=== PATIENT | female | born 1985 | race Caucasian/White ===

== ENCOUNTER 2017-04-18 07:23 | Emergency (ER) | payer BC ==
[2017-04-18 08:07] LABS: Hematocrit 43 % (35-47); Mean Corpuscular HGB Conc 33 g/dl (31-36); Mean Corpuscular Hemoglobin 30 pg (27-31); Mean Corpuscular Volume 92 fL (80-97); Mean Platelet Volume 8 um3 (7.4-10.4); Red Blood Count 4.62 10^6/ul (4.0-5.4); Red Cell Distribution Width 13 % (10.5-15); White Blood Count 12.4 10^3/ul (3.5-10.8)
--- NOTE | 2017-04-18 08:10 | RAD ---
INDICATION: Chest pain. COMPARISON: November 01, 2015 TECHNIQUE: Dual energy PA and routine lateral views of the chest were obtained. REPORT: Bilateral nipple shadows noted. No pulmonary infiltrate, focal pulmonary lesion, pleural effusion, pneumothorax. The heart, pulmonary vasculature, and mediastinal contours are unremarkable. Unremarkable soft tissue contours and osseous structures. IMPRESSION: No evidence for acute intrathoracic disease.,
[2017-04-18 08:15] LABS: ALT 17 U/L (7-52); AST 16 U/L (13-39); Albumin 4.4 g/dL (3.2-5.2); Alkaline Phosphatase 44 U/L (34-104); Anion Gap 7 mmol/L (2-11); BUN/Creatinine Ratio 17.3 (8-20); Blood Urea Nitrogen 13 mg/dL (6-24); CO2 Carbon Dioxide 24 mmol/L (22-32); Calcium 9.8 mg/dL (8.6-10.3); Chloride 106 mmol/L (101-111); Creatine Kinase 52 U/L (10-223); EGFR African American 117.5 (>60); EGFR Non-African American 91.4 (>60); Globulin 2.7 g/dL (2-4); Glucose 98 mg/dL (70-100); Potassium 3.8 mmol/L (3.5-5.0); Sodium 137 mmol/L (133-145); Total Protein 7.1 g/dL (6.4-8.9)
[2017-04-18 08:46] LABS: T4 6.81 mcg/mL (6.09-12.23)
[2017-04-18 08:50] LABS: TSH (Thyroid Stimulating Horm) 0.68 mcIU/mL (0.34-5.60)
[2017-04-18 09:10] VITALS: BP 121/88
--- NOTE | 2017-04-19 08:18 | ED ---
Stanley Villasenor Angela, scribed for Nba Rai MD on 04/18/17 at 0744 . Psychiatric Complaint - HPI Summary HPI Summary: This pt is a 31 y/o female presenting to [facility] c/o anxiety for a few days and chest tightness. Pt reports that yesterday she went to [place] ER for the same complaint, had labs drawn, had a chest XR and was given IV Ativan with relief. Pt is currently on Celexa daily and PRN Xanax, Oxycodone, and Flexeril. Yesterday, pt notes she had a migraine that has resolved today. She states last night she took 2 Xanax, oxycodone, and Flexeril and was able to sleep but awoke this morning with anxiety. Pt reports she takes pain medication for chronic hip pain. Today, pt felt nauseous and took Xanax at 0530 with mild relief. PMHx includes anxiety, hip pain, migraines. - History Of Current Complaint Chief Complaint: EDChestPainROMI Time Seen by Provider: 04/18/17 07:34 Hx Obtained From: Patient Hx Last Menstrual Period: 03/01/16 Onset/Duration: Lasting Days, Still Present Timing: Days Character: Anxious Aggravating Factor(s): Nothing Alleviating Factor(s): Other - Ativan, Xanax Associated Signs And Symptoms: Positive: Sleep Disturbance Has Suicidal: Denies: Thoughts, With A Plan Has Homicidal: Denies: Thoughts, With A Plan - Allergies/Home Medications Allergies/Adverse Reactions: Allergies Allergy/AdvReac Type Severity Reaction Status Date / Time Nickel Allergy Severe Rash Verified 04/18/17 07:31 PMH/Surg Hx/FS Hx/Imm Hx Endocrine/Hematology History: Denies: Hx Diabetes, Hx Thyroid Disease Cardiovascular History: Denies: Hx Hypertension, Hx Pacemaker/ICD Respiratory History: Denies: Hx Asthma, Hx Chronic Obstructive Pulmonary Disease (COPD) GI History: Denies: Hx Ulcer History: Denies: Hx Dialysis, Hx Renal Disease Musculoskeletal History: Reports: Other Musculoskeletal History - chronic hip pain Sensory History: Denies: Hx Hearing Aid Psychiatric History: Reports: Hx Anxiety, Hx Depression, Hx Panic Disorder - LITTLE ANXIETY Infectious Disease History: No Infectious Disease History: Denies: Hx Clostridium Difficile, Hx Hepatitis, Hx Human Immunodeficiency Virus (HIV), Hx of Known/Suspected MRSA, Hx Shingles, Hx Tuberculosis, Hx Known/ Suspected VRE, Hx Known/Suspected VRSA, History Other Infectious Disease, Traveled Outside the [place] in Last 30 Days - Family History Known Family History: Negative: Cardiac Disease, Hypertension - Social History Alcohol Use: Occasionally Substance Use Type: Reports: Marijuana Substance Use Comment - Amount & Last Used: OCCASIONALLY Smoking Status (MU): Former Smoker Type: Cigarettes Amount Used/How Often: september 15, 2014 Have You Smoked in the Last Year: Yes Review of Systems Negative: Fever, Chills Eyes: Negative ENT: Negative Cardiovascular: Other - chest tightness Positive: Nausea Genitourinary: Negative Musculoskeletal: Negative Positive: Headache - migraines, yesterday, resolved today Positive: Anxious All Other Systems Reviewed And Are Negative: Yes Physical Exam - Summary Physical Exam Summary: VITAL SIGNS: Reviewed. GENERAL: Patient is a well-developed and nourished female who is lying comfortable in the stretcher. Patient is not in any acute respiratory distress. HEAD AND FACE: No signs of trauma. No ecchymosis, hematomas or skull depressions. No sinus tenderness. EYES: PERRLA, EOMI x 2, No injected conjunctiva, no nystagmus. EARS: Hearing grossly intact. Ear canals and tympanic membranes are within normal limits. MOUTH: Oropharynx within normal limits. NECK: Supple, trachea is midline, no adenopathy, no JVD, no carotid bruit, no c- spine tenderness, neck with full ROM. CHEST: Symmetric, no tenderness at palpation LUNGS: Clear to auscultation bilaterally. No wheezing or crackles. CVS: Regular rate and rhythm, S1 and S2 present, no murmurs or gallops appreciated. ABDOMEN: Soft, non-tender. No signs of distention. No rebound no guarding, and no masses palpated. Bowel sounds are normal. EXTREMITIES: FROM in all major joints, no edema, no cyanosis or clubbing. NEURO: Alert and oriented x 3. No acute neurological deficits. Speech is normal and follows commands. SKIN: Dry and warm. Triage Information Reviewed: Yes Vital Signs On Initial Exam: Initial Vitals Temp Pulse Resp BP Pulse Ox 97.4 F 97 16 121/89 100 04/18/17 07:24 04/18/17 07:24 04/18/17 07:24 04/18/17 07:24 04/18/17 07:24 Vital Signs Reviewed: Yes Diagnostics - Vital Signs Vital Signs Temp Pulse Resp BP Pulse Ox 04/18/17 07:36 100 04/18/17 07:24 97.4 F 97 16 121/89 100 - Laboratory Lab Results: Lab Results 04/18/17 04/18/17 04/18/17 Range/Units 07:41 07:41 07:41 WBC 12.4 H (3.5-10.8) 10^3/ul RBC 4.62 (4.0-5.4) 10^6/ul Hgb 14.0 (12.0-16.0) g/dl Hct 43 (35-47) % MCV 92 (80-97) fL MCH 30 (27-31) pg MCHC 33 (31-36) g/dl RDW 13 (10.5-15) % Plt Count 325 (150-450) 10^3/ul MPV 8 (7.4-10.4) um3 Neut % (Auto) 67.9 (38-83) % Lymph % (Auto) 24.3 L (25-47) % Logan % (Auto) 5.4 (1-9) % Eos % (Auto) 1.6 (0-6) % Baso % (Auto) 0.8 (0-2) % Absolute Neuts (auto) 8.4 H (1.5-7.7) 10^3/ul Absolute Lymphs (auto) 3.0 (1.0-4.8) 10^3/ul Absolute Monos (auto) 0.7 (0-0.8) 10^3/ul Absolute Eos (auto) 0.2 (0-0.6) 10^3/ul Absolute Basos (auto) 0.1 (0-0.2) 10^3/ul Absolute Nucleated RBC 0 10^3/ul Nucleated RBC % 0 D-Dimer, Quantitative < 200 (Less Than 230) ng/mL Sodium 137 (133-145) mmol/L Potassium 3.8 (3.5-5.0) mmol/L Chloride 106 (101-111) mmol/L Carbon Dioxide 24 (22-32) mmol/L Anion Gap 7 (2-11) mmol/L BUN 13 (6-24) mg/dL Creatinine 0.75 (0.51-0.95) mg/dL Est GFR ( Amer) 117.5 (>60) Est GFR (Non-Af Amer) 91.4 (>60) BUN/Creatinine Ratio 17.3 (8-20) Glucose 98 (70-100) mg/dL Calcium 9.8 (8.6-10.3) mg/dL Total Bilirubin 0.60 (0.2-1.0) mg/dL AST 16 (13-39) U/L ALT 17 (7-52) U/L Alkaline Phosphatase 44 (34-104) U/L Total Creatine Kinase 52 (10-223) U/L CK-MB (CK-2) 1.3 (0.6-6.3) ng/mL Troponin I 0.00 (<0.04) ng/mL Total Protein 7.1 (6.4-8.9) g/dL Albumin 4.4 (3.2-5.2) g/dL Globulin 2.7 (2-4) g/dL Albumin/Globulin Ratio 1.6 (1-3) TSH 0.68 (0.34-5.60) mcIU/mL Thyroxine (T4) 6.81 (6.09-12.23) mcg/mL Beta HCG, Quant < 0.60 mIU/mL Result Diagrams: 04/18/17 07:41 04/18/17 07:41 Lab Statement: Any lab studies that have been ordered have been reviewed, and results considered in the medical decision making process. - Radiology Chest XR Xray Interpretation: No Acute Changes - IMPRESSION: No evidence for acute intrathoracic disease. ED physician has reviewed this radiology report and agrees. Radiology Interpretation Completed By: Radiologist - EKG 0800 Cardiac Rate: NL EKG Rhythm: Sinus Rhythm - at 76 bpm EKG Interpretation: No ST elevation. Normal axis. Re-Evaluation - Re-Evaluation First Eval Re-Evaluation Time: 09:07 Comment: I reviewed the XR and lab results with the pt. Course/Dx - Course Assessment/Plan: This pt is a 31 y/o female presenting to [facility] c/o anxiety for a few days and chest tightness. Pt reports that yesterday she went to [place] ER for the same complaint, had labs drawn, had a chest XR and was given IV Ativan with relief. Pt is currently on Celexa daily and PRN Xanax, Oxycodone, and Flexeril. Yesterday, pt notes she had a migraine that has resolved today. She states last night she took 2 Xanax, oxycodone, and Flexeril and was able to sleep but awoke this morning with anxiety. Pt reports she takes pain medication for chronic hip pain. Today, pt felt nauseous and took Xanax at 0530 with mild relief. PMHx includes anxiety, hip pain, migraines. Test results without any significant abnormalities except for WBC of 12.4. D-dimer is less than 200, therefore I have no suspicion for a PE. Troponin is 0.00. Chest XR shows no evidence for acute intrathoracic disease. EKG shows NSR at [address] elevations. It seems the pts symptoms are secondary to anxiety. The pt was given a prescription for Atarax and follow up from her PCP. Pt is hemodynamically stable, alert and oriented x3. - Differential Dx/Clinical Impression Differential Diagnosis/HQI/PQRI: Positive: Anxiety, Depression, Other - Atypical CP, angitan, PE Provider Diagnosis: Atypical chest pain, Anxiety Discharge - Discharge Plan Condition: Stable Disposition: HOME Prescriptions: hydrOXYzine HCL TAB* [Atarax 25 MG TAB*] 25 mg PO TID PRN #30 tab PRN Reason: Anxiety Patient Education Materials: Chest Pain (ED), Anxiety (ED) Forms: *Work Release Referrals: Marcelle Sol MD [Primary Care Provider] - Additional Instructions: Please follow up with your primary care provider. RETURN TO THE ED FOR ANY WORSENING OR NEW SYMPTOMS. The documentation as recorded by the Stanley packer Angela accurately reflects the service I personally performed and the decisions made by me, Nba Rai MD.
== END 2017-04-18 09:21 | disposition home or self-care (01) ==
LOC: ED 07:23
DX: R07.89 Other chest pain (principal); F41.9 Anxiety disorder, unspecified; R51 Headache; G47.9 Sleep disorder, unspecified; R11.0 Nausea; Z87.891 Personal history of nicotine dependence
CPT/HCPCS: 36415; 71020; 80053; 82550; 82553; 84436; 84443; 84484; 84702; 85025; 85379; 93005; 99282

== ENCOUNTER 2017-06-21 08:08 | Emergency (ER) | payer BC ==
[2017-06-21] MEDS ORDERED: Albuterol HFA INHALER* 8 gm MDI INH ONE (08:27)
[2017-06-21 09:37] VITALS: BP 116/76
--- NOTE | 2017-06-23 08:18 | ED ---
Radha Villasenor Thomas, scribed for Nba Rai MD on 06/21/17 at 0825 . Complex/Multi-Sys Presentation - HPI Summary HPI Summary: The patient is a 31 year old female presenting to the emergency department complaining of headache, postnasal drip, and ear congestion for the last two days. The patient additionally complains of chest tightness. She has a history of asthma. The patient denies fevers and chills. - History Of Current Complaint Chief Complaint: EDGeneral Time Seen by Provider: 06/21/17 08:16 Hx Obtained From: Patient Onset/Duration: Lasting Days - 2, Still Present Timing: Constant Severity Currently: Moderate Severity Initially: Moderate Location: Pain At: - head Associated Signs And Symptoms: Positive: Other - Headache, postnasal drip, ear congestion, chest tightness; NEGATIVE: fever, chills - Allergies/Home Medications Allergies/Adverse Reactions: Allergies Allergy/AdvReac Type Severity Reaction Status Date / Time nickel Allergy Severe Rash Verified 06/21/17 09:19 PMH/Surg Hx/FS Hx/Imm Hx Endocrine/Hematology History: Denies: Hx Diabetes, Hx Thyroid Disease Cardiovascular History: Denies: Hx Hypertension, Hx Pacemaker/ICD Respiratory History: Denies: Hx Asthma, Hx Chronic Obstructive Pulmonary Disease (COPD) GI History: Denies: Hx Ulcer History: Denies: Hx Dialysis, Hx Renal Disease Musculoskeletal History: Reports: Other Musculoskeletal History - chronic hip pain Sensory History: Denies: Hx Hearing Aid Psychiatric History: Reports: Hx Anxiety, Hx Depression, Hx Panic Disorder - LITTLE ANXIETY - Surgical History Surgery Procedure, Year, and Place: None Infectious Disease History: No Infectious Disease History: Denies: Hx Clostridium Difficile, Hx Hepatitis, Hx Human Immunodeficiency Virus (HIV), Hx of Known/Suspected MRSA, Hx Shingles, Hx Tuberculosis, Hx Known/ Suspected VRE, Hx Known/Suspected VRSA, History Other Infectious Disease, Traveled Outside the [place] in Last 30 Days - Family History Known Family History: Positive: Cardiac Disease - mother in 40s due to cardiac causes Negative: Hypertension - Social History Occupation: Employed Full-time Alcohol Use: Occasionally Substance Use Type: Reports: Marijuana Substance Use Comment - Amount & Last Used: OCCASIONALLY Smoking Status (MU): Former Smoker Type: Cigarettes Amount Used/How Often: september 15, 2014 Have You Smoked in the Last Year: Yes Review of Systems Negative: Fever, Chills Positive: Other - Ear congestion, postnasal drip Positive: Other - Chest tightness All Other Systems Reviewed And Are Negative: Yes Physical Exam - Summary Physical Exam Summary: VITAL SIGNS: Reviewed. GENERAL: Patient is a well-developed and nourished female who is lying comfortable in the stretcher. Patient is not in any acute respiratory distress. HEAD AND FACE: No signs of trauma. No ecchymosis, hematomas or skull depressions. There is sinus tenderness to the ethmoid and maxillary sinus. EYES: PERRLA, EOMI x 2, No injected conjunctiva, no nystagmus. EARS: Hearing grossly intact. Ear canals and tympanic membranes are within normal limits. MOUTH: Oropharynx within normal limits. There is pharyngeal erythema. NECK: Supple, trachea is midline, no adenopathy, no JVD, no carotid bruit, no c- spine tenderness, neck with full ROM. CHEST: Symmetric, no tenderness at palpation LUNGS: Clear to auscultation bilaterally. No wheezing or crackles. CVS: Regular rate and rhythm, S1 and S2 present, no murmurs or gallops appreciated. ABDOMEN: Soft, non-tender. No signs of distention. No rebound no guarding, and no masses palpated. Bowel sounds are normal. EXTREMITIES: FROM in all major joints, no edema, no cyanosis or clubbing. NEURO: Alert and oriented x 3. No acute neurological deficits. Speech is normal and follows commands. SKIN: Dry and warm Triage Information Reviewed: Yes Vital Signs On Initial Exam: Initial Vitals Temp Pulse Resp BP Pulse Ox 98.6 F 106 17 118/76 100 06/21/17 08:12 06/21/17 08:12 06/21/17 08:12 06/21/17 08:12 06/21/17 08:12 Vital Signs Reviewed: Yes Diagnostics - Vital Signs Vital Signs Temp Pulse Resp BP Pulse Ox 06/21/17 08:12 98.6 F 106 17 118/76 100 - Laboratory Lab Results: Lab Results 06/21/17 06/21/17 Range/Units 08:52 09:02 Influenza A (Rapid) Negative (Negative) Influenza B (Rapid) Negative (Negative) Group A Strep Rapid Negative (Negative) Lab Statement: Any lab studies that have been ordered have been reviewed, and results considered in the medical decision making process. Complex Multi-Symp Course/Dx Assessment/Plan: The patient is a 31 year old female presenting to the emergency department complaining of headache, postnasal drip, and ear congestion for the last two days. Influenza A and B are negative. Rapid strep is negative. I believe the patient has acute sinusitis. Therefore, I will prescribe the patient amoxicillin. The patient will follow up with primary care. - Diagnoses Differential Diagnoses/HQI/PQRI: Other - Flu, sinusitis, pharyngitis Provider Diagnoses: URI (upper respiratory infection), Sinusitis Discharge - Discharge Plan Condition: Stable Disposition: HOME Prescriptions: Amoxicillin PO (*) [Amoxicillin 875 MG (*)] 875 mg PO BID #20 tab Patient Education Materials: Sinusitis (ED), Upper Respiratory Infection (ED) Forms: *Work Release Referrals: Marcelle Sol MD [Primary Care Provider] - 3 Days Additional Instructions: Follow up with your primary care provider in three days. Return to the emergency department for any new or worsening symptoms. The documentation as recorded by the Radha packer Thomas accurately reflects the service I personally performed and the decisions made by , Nba Rai MD.
== END 2017-06-21 09:35 | disposition home or self-care (01) ==
LOC: ED 08:08
DX: J06.9 Acute upper respiratory infection, unspecified (principal); R51 Headache; R09.82 Postnasal drip; H83.8X9 Other specified diseases of inner ear, unspecified ear; R07.89 Other chest pain; J32.9 Chronic sinusitis, unspecified; Z87.891 Personal history of nicotine dependence
CPT/HCPCS: 87502; 87651; 99282; A9270-GY

== ENCOUNTER 2017-07-10 08:56 | Emergency (ER) | payer BC ==
[2017-07-10] MEDS ORDERED: Ondansetron INJ* 2 MG/ML VIAL IV ONE (10:27)
[2017-07-10] MEDS ORDERED: Morphine INJ* 4 MG/ML 1 ML SYRINGE (NEW SYRINGE VERSION) IV ONE ×2 (10:27→15:58)
[2017-07-10] MEDS ORDERED: NS 0.9% 1000 ML* 1,000 ML IV ONE (10:32)
--- NOTE | 2017-07-10 10:44 | ED ---
Complex/Multi-Sys Presentation - HPI Summary HPI Summary: Patient presents with abrupt onset left lower quadrant pain this morning - now radiating around her side. She reports this as a sharp pain, feels like she was "shot in the stomach". Her first thought was possible ruptured ovarian cyst as she's had one on the right in the past. Was told it was not large enough to require surgical intervention at that time. She's not had any issues since. Had a nexplanon in place over the past year or so. She's not really had a period since however recently started spotting. Otherwise denies dysuria, urinary frequency, urinary urgency, vaginal discharge, vaginal irritation, fevers, chills, chest pain. History of constipation however this was when she was taking iron - reports she's no longer taking iron and bowel movements are normal since. She is with full term uncomplicated , vaginal delivery. No history of abdominal surgeries. She also reports having chronic sinus issues with neck soreness - believe she's been draining into her cervical lymph nodes. New symptoms include upper lung "lobe" pain past 2 days with perceived shortness of breath. She reports pain is worse with deep breaths. Denies cough, hemoptysis, fever, lower extremity swelling or trauma in general. She does suffer with restless leg syndrome which is unchanged as of late. History of smoking but quit 4 years ago. No known history of cancer. - History Of Current Complaint Chief Complaint: EDFlankPain Time Seen by Provider: 07/10/17 09:48 Hx Obtained From: Patient - Allergies/Home Medications Allergies/Adverse Reactions: Allergies Allergy/AdvReac Type Severity Reaction Status Date / Time nickel Allergy Severe Rash Verified 06/21/17 09:19 Home Medications: Home Medications Albuterol HFA INHALER* [Ventolin HFA Inhaler*] 2 puff INH Q4H PRN 07/10/17 [ History Confirmed 07/10/17] Cyclobenzaprine TAB* [Flexeril TAB*] 10 mg PO TID PRN 07/10/17 [History Confirmed 07/10/17] DULoxetine CAP* [Cymbalta CAP*] 30 mg PO BEDTIME 07/10/17 [History Confirmed 07/10/17] DULoxetine CAP* [Cymbalta CAP*] 60 mg PO BEDTIME 07/10/17 [History Confirmed 07/10/17] Gabapentin CAP(*) [Neurontin 300 CAP(*)] 900 mg PO BEDTIME 07/10/17 [History Confirmed 07/10/17] Hydrocodone/Acetaminophen [Mershon 7.5-325 Tablet] 1 tab PO BEDTIME PRN 07/10/17 [ History Confirmed 07/10/17] Rizatriptan ODT (NF) [Maxalt-BIOLOGY TEACHER (NF)] 10 mg PO DAILY PRN 07/10/17 [History Confirmed 07/10/17] Zonisamide (NF) [Zonegran (NF)] 100 mg PO BEDTIME 07/10/17 [History Confirmed ] PMH/Surg Hx/FS Hx/Imm Hx Previously Healthy: No - sinusitis, insomnia Endocrine/Hematology History: Reports: Hx Anemia - took Fe in past -not currently Denies: Hx Anticoagulant Therapy, Hx Blood Disorders, Hx Diabetes, Hx Thyroid Disease, Hx Unexplained Bleeding, Hx Coagulopothy Cardiovascular History: Denies: Hx Aneurysm, Hx Congenital Heart Disease, Hx Hypertension, Hx Myocardial Infarction, Hx Pacemaker/ICD, Hx Valvular Heart Disease Respiratory History: Denies: Hx Asthma, Hx Chronic Obstructive Pulmonary Disease (COPD), Hx Pneumonia, Hx Pulmonary Embolism, Hx Sleep Apnea GI History: Denies: Hx Gall Bladder Disease, Hx Gastroesophageal Reflux Disease, Hx Gastrointestinal Bleed, Hx Irritable Bowel, Hx Obstructive Bowel, Hx Ulcer History: Denies: Hx Dialysis, Hx Kidney Infection, Hx Kidney Stones, Hx Renal Disease Musculoskeletal History: Reports: Other Musculoskeletal History - chronic hip pain - takes flexeril Sensory History: Reports: Hx Contacts or Glasses Denies: Hx Hearing Aid Opthamlomology History: Reports: Hx Contacts or Glasses Neurological History: Reports: Hx Migraine - titrating up on Zonisamide, Other Neuro Impairments/Disorders - RLS - takes gabapentin Psychiatric History: Reports: Hx Anxiety, Hx Depression, Hx Panic Disorder - Surgical History Surgery Procedure, Year, and Place: None Infectious Disease History: No Infectious Disease History: Denies: Hx Clostridium Difficile, Hx Hepatitis, Hx Human Immunodeficiency Virus (HIV), Hx of Known/Suspected MRSA, Hx Shingles, Hx Tuberculosis, Hx Known/ Suspected VRE, Hx Known/Suspected VRSA, History Other Infectious Disease, Traveled Outside the [place] in Last 30 Days - Family History Known Family History: Positive: Cardiac Disease - mother in 40's due to cardiac causes Negative: Hypertension - Social History Occupation: Employed Full-time Alcohol Use: Weekly - 2 x week - wine Substance Use Type: Reports: Marijuana Substance Use Comment - Amount & Last Used: OCCASIONALLY for insomnia Hx Tobacco Use: Yes - quit 4 years ago Smoking Status (MU): Former Smoker Type: Cigarettes Amount Used/How Often: september 15, 2014 Have You Smoked in the Last Year: Yes Review of Systems Constitutional: Negative Negative: Fever, Chills, Fatigue Eyes: Negative Positive: Ear Ache Negative: Chest Pain Positive: Shortness Of Breath. Negative: Cough Positive: Abdominal Pain. Negative: Vomiting, Diarrhea, Nausea Genitourinary: Negative Positive: see HPI Musculoskeletal: Negative Skin: Negative Negative: Headache Positive: Anxious All Other Systems Reviewed And Are Negative: Yes Physical Exam Triage Information Reviewed: Yes Vital Signs On Initial Exam: Initial Vitals Temp Pulse Resp BP Pulse Ox 98.3 F 129 20 114/72 100 07/10/17 08:57 07/10/17 08:57 07/10/17 08:57 07/10/17 08:57 07/10/17 08:57 Vital Signs Reviewed: Yes Appearance: Positive: Well-Appearing, Pain Distress, Thin Skin: Positive: Warm, Skin Color Reflects Adequate Perfusion, Dry Head/Face: Positive: Normal Head/Face Inspection Eyes: Positive: Normal, EOMI, JAIRON, Conjunctiva Clear - anicteric sclera ENT: Positive: Normal ENT inspection, Hearing grossly normal, Pharynx normal Respiratory/Lung Sounds: Positive: Breath Sounds Present Cardiovascular: Positive: Tachycardia, S1, S2. Negative: Murmur, Rub Diagnostics - Vital Signs Vital Signs Temp Pulse Resp BP Pulse Ox 07/10/17 08:57 98.3 F 129 20 114/72 100 - Laboratory Result Diagrams: 07/10/17 10:44 07/10/17 10:44 Lab Statement: Any lab studies that have been ordered have been reviewed, and results considered in the medical decision making process. Re-Evaluation - Re-Evaluation First Eval Change: Improved - s/p moprhine Second Eval Change: Improved - toradol Third Eval Change: Worse - pain creeping back - no fever - ordered morphine Fourth Eval Change: Improved Complex Multi-Symp Course/Dx Course Of Treatment: Patient presented with abrupt left mid to lower abdominal pain which started radiating around her left side. This was initially thought to be an ovarian cyst, ovarian rupture, ovarian torsion based on patient's history of ovarian cysts and now spotting for the first time since having Nexplanon in place after a year. The transvaginal ultrasound did reveal bilateral ovarian cysts, one with a complex cyst (Rt) and the other with simple nad complex cyst (Lt).They are individually smaller than the ovaries themselves. No free fluid was identified and adequate blood flow to both ovaries. Although it was observed that these could be causing patient's sx, her pain returned after 4 mg of morphine and her white count was elevated with some left shift and an elevated CRP. With an unimpressive transvaginal ultrasound to trigger these findings, it was decided that ruling out a urinary tract stone as well as diverticulitis would be prudent. Note: Patient's U/A reveals blood, protein, and crystals. She also mentioned a history of constipation along with the fact that she has not eaten food in the past 2 days but has been drinking fluids to see hydrated. Eventually however her CT returned without acute findings and it was decided that her ovarian cysts may in fact have been the root cause of her pain and she later revealed she had a very poor night's sleep during a sleep study at the sleep lab at [facility] [place]. She also admits she is under a great deal of stress as being a single parent of a 2-year- old and working full-time. Admits she has anxiety in general. The elevated WBC 's were also thought to be attributed to not only inflammation but also sinusitis. Those sx improved some while resting, hydrating and receiving pain medication. To f/u w/ PCP for URI sx and will f/u w/ RESEARCH ASSISTANT MEMBER for ovarian cysts. Reviewed danger s/sx of when to return to ED. Pt agrees w/ plan. - Diagnoses Provider Diagnoses: Bilateral ovarian cysts Discharge - Discharge Plan Condition: Stable Disposition: HOME Prescriptions: Naproxen TAB* [Naprosyn 250 mg TAB*] 500 mg PO Q12HR #20 tab Patient Education Materials: Ovarian Cyst (ED) Forms: *Work Release Referrals: Ady Ko MD [Medical Doctor] - Additional Instructions: Your abdominal pain appears to be from bilateral ovarian cysts. Other emergent causes were ruled out including but not limited to diverticulitis, kidney stone , ovarian torsion, abscess, bowel obstruction, UTI, etc. You had relief of symptoms with an anti-inflammatory pain reliver. You may continue along this course by taking naproxen 500 mg every 12 hours with food as needed for pain ( prescription has been sent to pharmacy). Additionally, you may apply heat packs (with or without castor oil), stay hydrated and eat a balanced diet along with adequate sleep and stress reduction throughout your day-to-day routine. Follow-up with DRAMATIC DIRECTOR. Call tomorrow to schedule an appointment. *If you develop change in your pain that is acutely worsening or develop fever, chills, new symptoms such as pain with urination, abnormal vaginal discharge or heavy vaginal bleeding, return to the emergency department
[2017-07-10 11:03] LABS: ABS Basophils 0 10^3/ul (0-0.2); ABS Eosinophils 0.1 10^3/ul (0-0.6); ABS Lymphocytes 2.6 10^3/ul (1.0-4.8); ABS Monocytes 0.8 10^3/ul (0-0.8); ABS Neutrophils 13.5 10^3/ul (1.5-7.7); ABS Nucleated RBC 0 10^3/ul; Eosinophil % 0.3 % (0-6); Hematocrit 40 % (35-47); Hemoglobin 13.5 g/dl (12.0-16.0); Lymphocyte % 15.4 % (25-47); Mean Corpuscular HGB Conc 34 g/dl (31-36); Mean Corpuscular Hemoglobin 31 pg (27-31); Mean Corpuscular Volume 90 fL (80-97); Mean Platelet Volume 8 um3 (7.4-10.4); Nucleated Red Blood Cells % 0; Platelet Count 352 10^3/ul (150-450); Red Blood Count 4.41 10^6/ul (4.0-5.4); Red Cell Distribution Width 13 % (10.5-15)
[2017-07-10 11:18] LABS: EGFR Non-African American 102.3 (>60)
--- NOTE | 2017-07-10 11:22 | RAD ---
INDICATION: Left lower quadrant pain. Ovarian cyst. COMPARISON: None TECHNIQUE: Longitudinal and transverse transvaginal scans of the pelvis were obtained. FINDINGS: Uterus: The uterus is normal in size. There are no focal masses. The uterus measures 6.3 x 3.0 x 3.9 cm. Endometrial thickness: The endometrial thickness is measured at 0.3 cm. . Free fluid: There is no significant free fluid . Ovaries: The ovaries are normal in size. The right ovary measures 2.9 x 2.0 x 2.2 cm. There is a complex ovarian cyst measuring 1.9 x 0.9 x 1.5 cm. cm. The left ovary measures 3.0 x 1.5 a 2.6 cm. There is a complex cyst measuring 1.2 x 0.6 x 0.8 cm and a simple cyst measuring 0.9 x 0.6 x 0.8 cm. Doppler interrogation demonstrates flow to each ovary. Other: None IMPRESSION: BILATERAL OVARIAN CYSTS SEVERAL OF WHICH ARE MILDLY COMPLEX AND ARE LIKELY INVOLUTING OR HEMORRHAGIC CYSTS
[2017-07-10 11:58] LABS: INR 0.93 (0.77-1.02)
--- NOTE | 2017-07-10 11:58 | RAD ---
HISTORY: Shortness of breath, chest pain COMPARISONS: April 18, 2017 VIEWS: 1: frontal portable view of the chest at 11:40 AM FINDINGS: LINES AND TUBES: None. CARDIOMEDIASTINAL SILHOUETTE: The cardiomediastinal silhouette is normal for portable technique. PLEURA: The costophrenic angles are sharp. No pleural abnormalities are noted. LUNG PARENCHYMA: The lungs are clear. ABDOMEN: The upper abdomen is clear. There is no subphrenic gas. BONES AND SOFT TISSUES: No bone or soft tissue abnormalities are noted. IMPRESSION: NO ACTIVE CARDIOPULMONARY DISEASE.
[2017-07-10] MEDS ORDERED: Ketorolac INJ* 30 MG/ML 1 ML VIAL IV PUSH ONE (12:24)
[2017-07-10 13:35] LABS: Urine Appearance Turbid; Urine Blood Negative (Negative); Urine Color Amber; Urine Ketones 1+ (Negative); Urine Protein 1+(30 mg/dL) (Negative); Urine Specific Gravity 1.021 (1.010-1.030); Urine Urobilinogen Negative (Negative)
--- NOTE | 2017-07-10 16:39 | RAD ---
INDICATION: LEFT flank and LEFT lower quadrant pain. Question urinary stone, diverticulitis, abscess. COMPARISON: July 10, 2017 pelvic ultrasound. TECHNIQUE: Multidetector CT images were obtained from the lung bases to the ischial tuberosities. Oral contrast administered. Assessment of the visceral limited without IV contrast. REPORT: Minimal subpleural atelectasis at the LEFT lung base. No suspicious finding of the unenhanced liver, gallbladder, pancreas, spleen. Enteric contrast extends to the splenic flexure of the colon. No CT abnormality of the upper GI, small bowel, appendix visualized along the RIGHT pelvic sidewall, or colon evident. Negative for ascites, free air, hernias. Normal adrenal glands. Symmetric unremarkable kidneys without nephrolithiasis or hydronephrosis. Unremarkable nondilated ureters and urinary bladder. Tampon in place in the vagina. No CT abnormality of the uterus or adnexal regions. No visualized lymphadenopathy. Normal diameter abdominal aorta and iliac arteries. Physiologic distention of the IVC. Negative for fracture, articular malalignment, or suspicious focal osseous lesions. IMPRESSION: 1. Normal appendix documented. No pathologic process of the alimentary tract evident. 2. Negative for urolithiasis or hydronephrosis. 3. No abdominal pelvic pathologic process evident.
[2017-07-10 17:49] VITALS: BP 108/80
== END 2017-07-10 17:49 | disposition home or self-care (01) ==
LOC: ED 08:56
DX: N83.202 Unspecified ovarian cyst, left side (principal); N83.201 Unspecified ovarian cyst, right side; Z87.891 Personal history of nicotine dependence
CPT/HCPCS: 36415; 71045; 74176; 76830; 80053; 81003; 81015; 83605; 83690; 83735; 84702; 85025; 85379; 85610; 85730; 86140; 96361; 96374; 96375; 96376; 99284; J1885; J2270; J2405

== ENCOUNTER 2017-09-17 15:22 | Emergency (ER) | payer BC ==
[2017-09-17] MEDS ORDERED: Ketorolac INJ* 30 MG/ML 1 ML VIAL IM ONE (18:46)
[2017-09-17] MEDS ORDERED: Carisoprodol TAB* 350 MG PO ONE (18:48)
--- NOTE | 2017-09-17 19:22 | RAD ---
INDICATION: Back and left shoulder pain x3 days COMPARISON: Most recent comparison chest x-rays dated July 10, 2017 TECHNIQUE: PA and lateral views of the chest were obtained. FINDINGS: The heart and mediastinum are normal in size and contour. The lungs are grossly clear. There is no evidence of large pleural effusion. Visualized bones are normal for the patient's age. There is no radiographic evidence of free air beneath the diaphragm IMPRESSION: No radiographic evidence of acute cardiopulmonary disease.
[2017-09-17 20:06] VITALS: BP 127/91
--- NOTE | 2017-09-17 23:59 | ED ---
Chuckie Villasenor Natalie, scribed for Yamel Dasilva MD on 09/17/17 at 2011 . Back Pain - HPI Summary HPI Summary: The pt is a 31 y/o F presenting to the ED c/o upper back pain and muscle spasms starting a few weeks ago. The left side of her upper back is worse than right side. Pain is rated 8/10 in severity. Pt additionally c/o SOB. Pt denies CP, shoulder and abd pain. She sees Dr. Sol for this condition, who prescribes her valium. FHx of asthma. - History of Current Complaint Chief Complaint: EDBackInjuryPain Stated Complaint: DIFF. BREATHING Time Seen by Provider: 09/17/17 18:37 Hx Obtained From: Patient Hx Last Menstrual Period: 03/01/16 Onset/Duration: Lasting Weeks, Still Present Onset/Duration: Started Weeks Ago, Still Present Timing: Lasting Weeks Back Pain Location: Is Diffuse - both sides but left upper is worst Severity Initially: Moderate Severity Currently: Moderate Pain Intensity: 8 Pain Scale Used: 0-10 Numeric Aggravating Symptom(s): Nothing Alleviating Symptom(s): Nothing Associated Signs And Symptoms: Positive: Other - POSITIVE: ; NEGATIVE: - Allergies/Home Medications Allergies/Adverse Reactions: Allergies Allergy/AdvReac Type Severity Reaction Status Date / Time nickel Allergy Severe Rash Verified 09/17/17 15:31 PMH/Surg Hx/FS Hx/Imm Hx Endocrine/Hematology History: Reports: Hx Anemia - took Fe in past -not currently Denies: Hx Anticoagulant Therapy, Hx Blood Disorders, Hx Diabetes, Hx Thyroid Disease, Hx Unexplained Bleeding Cardiovascular History: Denies: Hx Aneurysm, Hx Congenital Heart Disease, Hx Hypertension, Hx Myocardial Infarction, Hx Pacemaker/ICD, Hx Valvular Heart Disease Respiratory History: Denies: Hx Asthma, Hx Chronic Obstructive Pulmonary Disease (COPD), Hx Pneumonia, Hx Pulmonary Embolism, Hx Sleep Apnea GI History: Denies: Hx Gall Bladder Disease, Hx Gastroesophageal Reflux Disease, Hx Gastrointestinal Bleed, Hx Irritable Bowel, Hx Obstructive Bowel, Hx Ulcer History: Denies: Hx Dialysis, Hx Kidney Infection, Hx Kidney Stones, Hx Renal Disease Musculoskeletal History: Reports: Other Musculoskeletal History - chronic hip pain - takes flexeril Sensory History: Reports: Hx Contacts or Glasses Denies: Hx Hearing Aid Opthamlomology History: Reports: Hx Contacts or Glasses Neurological History: Reports: Hx Migraine - titrating up on Zonisamide, Other Neuro Impairments/Disorders - RLS - takes gabapentin Psychiatric History: Reports: Hx Anxiety, Hx Depression, Hx Panic Disorder - Surgical History Surgery Procedure, Year, and Place: None Infectious Disease History: No Infectious Disease History: Denies: Hx Clostridium Difficile, Hx Hepatitis, Hx Human Immunodeficiency Virus (HIV), Hx of Known/Suspected MRSA, Hx Shingles, Hx Tuberculosis, Hx Known/ Suspected VRE, Hx Known/Suspected VRSA, History Other Infectious Disease, Traveled Outside the [place] in Last 30 Days - Family History Known Family History: Positive: Cardiac Disease - mother in 40's due to cardiac causes Negative: Hypertension Family History: NON CONTRIBUTORY - Social History Alcohol Use: Weekly Substance Use Type: Reports: Marijuana Substance Use Comment - Amount & Last Used: OCCASIONALLY for insomnia Hx Tobacco Use: Yes - quit 4 years ago Smoking Status (MU): Former Smoker Type: Cigarettes Amount Used/How Often: september 15, 2014 Have You Smoked in the Last Year: Yes Review of Systems Negative: Chest Pain Positive: Shortness Of Breath Negative: Abdominal Pain Positive: Other - upper back pain All Other Systems Reviewed And Are Negative: Yes Physical Exam - Summary Physical Exam Summary: Appearance: Ill-appearing, moderate pain distress, Well-nourished Skin: Warm, color reflects adequate perfusion Head: Normal Head/Face inspection, atraumatic Eyes: Conjunctiva clear ENT: Normal inspection Neck: Supple, no nodes, no JVD. Respiratory: Lungs clear, Normal breath sounds, no respiratory distress Cardio: RRR, No murmur, pulses normal, brisk capillary refill Abdomen: soft, nontender Bowel sounds: present Musculoskeletal: Strength Intact/ ROM intact. No calf tenderness. No edema. Pain in upper left interscapular area Psychological: Normal Neuro: Alert, muscle tone normal, no focal deficit Triage Information Reviewed: Yes Vital Signs On Initial Exam: Initial Vitals Temp Pulse Resp BP Pulse Ox 97.3 F 88 16 123/74 96 09/17/17 15:27 09/17/17 15:27 09/17/17 15:27 09/17/17 15:27 09/17/17 15:27 Vital Signs Reviewed: Yes Diagnostics - Vital Signs Vital Signs Temp Pulse Resp BP Pulse Ox 09/17/17 19:10 18 09/17/17 17:28 98.4 F 77 16 128/87 100 09/17/17 15:27 97.3 F 88 16 123/74 96 - Laboratory Lab Statement: Any lab studies that have been ordered have been reviewed, and results considered in the medical decision making process. - Radiology CXR Xray Interpretation: No Acute Changes - No radiographic evidence of acute cardiopulmonary disease. ED physician has reviewed this report. Radiology Interpretation Completed By: Radiologist - EKG 16:58 Cardiac Rate: NL EKG Rhythm: Sinus Rhythm - 72 BPM EKG Interpretation: Nml AVIVCT, nml QTc, nml axis EKG Comparison: No Significant Change - Compared to 04/18/17 Back Pain Course/Dx - Course Course Of Treatment: Pt's medications reviewed during this visit. Allergies noted. EKG and CXR are unremarkable. The pt will be discharged home under stable conditions. Pt is agreeable with this plan. Discharge - Discharge Plan Condition: Stable Disposition: HOME Prescriptions: Carisoprodol TAB* [Soma TAB*] 350 mg PO Q6H PRN #20 tab MDD 4 PRN Reason: Pain Patient Education Materials: Back Pain (ED) Referrals: Marcelle Sol MD [Primary Care Provider] - 2 Days Additional Instructions: You were given a shot of toradol 30mg IM and a soma 350mg while in the ER. Your EKG and CXR were normal. Have definite follow up with Dr. Sol in the next 1-2 days. Return to the ER if you have new or worsening symptoms. - Billing Disposition and Condition Condition: STABLE Disposition: HOME The documentation as recorded by the Chuckie packer Natalie accurately reflects the service I personally performed and the decisions made by , Yamel Dasilva MD.
== END 2017-09-17 20:05 | disposition home or self-care (01) ==
LOC: ED 15:22
DX: M54.9 Dorsalgia, unspecified (principal); R06.02 Shortness of breath; Z87.891 Personal history of nicotine dependence
CPT/HCPCS: 71046; 93005; 96372; 99282; A9270-GY; J1885

== ENCOUNTER → 2018-04-01 05:35 | Emergency (ER) | payer BC ==
[~2018-04-01 05:35] MED LIST: Clindamycin CAP* 150 MG PO ONE; Lidocaine 1% INJ* 10 MG/ML 30 ML SDV INJ ONE; cefTRIAXone VIAL(*) 1,000 MG VIAL IM ONE
[2018-04-01 05:39] VITALS: BP 132/73
--- NOTE | 2018-04-01 06:03 | ED ---
Throat Pain/Nasal Congestion - HPI Summary HPI Summary: Patient is a 32-year-old female with a history of dental caries and broken teeth presenting to the ED with a 3 day history of worsening right sided lower dental pain. She states she's had a broken tooth there for several years, however it is never created dental abscesses in the past. She notes a gradual progression of worsening pain throughout the last few days and then woke this morning with right-sided lower facial swelling. Denies any trismus or difficulty swallowing. Denies any odynophagia. Denies any ear pain. States there is some radiation up into the right temporal area. History of migraines. She has been taking ibuprofen 4 times daily as well as her Vicodin (up to 20 over the weekend. ) She is prescribed Vicodin and morphine for her hip. She denies any fevers, sweats, chills. She states she's been otherwise well. No wheezing or drooling. No cough or congestion. - History of Current Complaint Chief Complaint: EDDentalPain Time Seen by Provider: 04/01/18 05:46 Hx Obtained From: Patient Onset/Duration: Gradual Onset Severity: Moderate Associated Signs And Symptoms: Negative: Dysphagia, FB Sensation, Drooling, Wheezing, Hoarseness, Sinus Discomfort, Nasal Discharge - Epiglottits Risk Factors Epiglottis Risk Factors: Negative - Allergies/Home Medications Allergies/Adverse Reactions: Allergies Allergy/AdvReac Type Severity Reaction Status Date / Time nickel Allergy Severe Rash Verified 04/01/18 05:40 PMH/Surg Hx/FS Hx/Imm Hx Previously Healthy: Yes Endocrine/Hematology History: Reports: Hx Anemia - took Fe in past -not currently Denies: Hx Anticoagulant Therapy, Hx Blood Disorders, Hx Diabetes, Hx Thyroid Disease, Hx Unexplained Bleeding Cardiovascular History: Denies: Hx Aneurysm, Hx Congenital Heart Disease, Hx Hypertension, Hx Myocardial Infarction, Hx Pacemaker/ICD, Hx Valvular Heart Disease Respiratory History: Reports: Hx Asthma Denies: Hx Chronic Obstructive Pulmonary Disease (COPD), Hx Pneumonia, Hx Pulmonary Embolism, Hx Sleep Apnea GI History: Denies: Hx Gall Bladder Disease, Hx Gastroesophageal Reflux Disease, Hx Gastrointestinal Bleed, Hx Irritable Bowel, Hx Obstructive Bowel, Hx Ulcer History: Denies: Hx Dialysis, Hx Kidney Infection, Hx Kidney Stones, Hx Renal Disease Musculoskeletal History: Reports: Other Musculoskeletal History - chronic hip pain - takes flexeril Sensory History: Reports: Hx Contacts or Glasses Denies: Hx Hearing Aid Opthamlomology History: Reports: Hx Contacts or Glasses Neurological History: Reports: Hx Migraine, Other Neuro Impairments/Disorders - RLS - takes gabapentin Psychiatric History: Reports: Hx Anxiety, Hx Depression, Hx Panic Disorder - Surgical History Surgery Procedure, Year, and Place: None Infectious Disease History: No Infectious Disease History: Denies: Hx Clostridium Difficile, Hx Hepatitis, Hx Human Immunodeficiency Virus (HIV), Hx of Known/Suspected MRSA, Hx Shingles, Hx Tuberculosis, Hx Known/ Suspected VRE, Hx Known/Suspected VRSA, History Other Infectious Disease, Traveled Outside the [place] in Last 30 Days - Family History Known Family History: Positive: Cardiac Disease Negative: Hypertension Family History: NON CONTRIBUTORY - Social History Occupation: Employed Full-time Lives: With Family Alcohol Use: Weekly Hx Substance Use: Yes Substance Use Type: Reports: Marijuana Substance Use Comment - Amount & Last Used: OCCASIONALLY for insomnia Hx Tobacco Use: Yes - quit 4 years ago Smoking Status (MU): Former Smoker Type: Cigarettes Amount Used/How Often: september 15, 2014 Have You Smoked in the Last Year: Yes Review of Systems Negative: Fever, Chills, Fatigue, Skin Diaphoresis Negative: Photophobia, Blurred Vision, Diplopia Positive: Dental Pain. Negative: Sore Throat, Ear Ache Negative: Palpitations, Chest Pain Negative: Shortness Of Breath, Cough Negative: Rash Positive: Headache Psychological: Normal All Other Systems Reviewed And Are Negative: Yes Physical Exam Triage Information Reviewed: Yes Vital Signs On Initial Exam: Initial Vitals Temp Pulse Resp BP Pulse Ox 99.1 F 103 16 132/73 99 04/01/18 05:36 04/01/18 05:36 04/01/18 05:36 04/01/18 05:36 04/01/18 05:36 Vital Signs Reviewed: Yes Appearance: Positive: Well-Appearing, Well-Nourished Skin: Positive: Skin Color Reflects Adequate Perfusion Head/Face: Positive: Other - R sided lower dental/ cheek swelling ENT: Positive: TMs normal, Uvula midline. Negative: Nasal congestion, Nasal drainage, Tonsillar swelling, Tonsillar exudate, Sinus tenderness Dental: Positive: Gross Decay/Caries @ - throughout, Dental Fracture @ - #29, Other - R sided dental swelling - lower Respiratory/Lung Sounds: Positive: Clear to Auscultation, Breath Sounds Present Cardiovascular: Positive: RRR Musculoskeletal: Positive: Normal, Strength/ROM Intact Neurological: Positive: Speech Normal Psychiatric: Positive: Affect/Mood Appropriate AVPU Assessment: Alert Diagnostics - Vital Signs Vital Signs Temp Pulse Resp BP Pulse Ox 04/01/18 05:36 99.1 F 103 16 132/73 99 - Laboratory Lab Statement: Any lab studies that have been ordered have been reviewed, and results considered in the medical decision making process. EENT Course/Dx - Course Course Of Treatment: Patient is evaluated for right-sided lower dental pain and swelling. Tooth #29 is cracked, several. Dental caries throughout. Right- sided lower jaw swelling here, she denies any trismus. Denies any odynophagia, dysphagia. No fever, sweats or chills. Discussed treatment options with patient. She is given 1 g Rocephin in the ED as well as 600 mg clindamycin. She will be discharged with 300 mg clindamycin 4 times daily 7 days. She is given strict return precautions for return if she develops any redness to the cheek warmth, worsening swelling, difficulty swallowing, difficulty breathing or unable to open the jaw. She understands these return precautions. She'll continue to take her home ibuprofen and Vicodin as needed for discomfort. - Diagnoses Provider Diagnoses: Pain, dental, Swelling, cheek Discharge - Sign-Out/Discharge Documenting (check all that apply): Patient Departure - Discharge Plan Condition: Stable Disposition: HOME Prescriptions: Clindamycin Cap(NF) [Clindamycin Cap 300 mg Cap(NF)] 300 mg PO Q6H #28 cap Referrals: Marcelle Sol MD [Primary Care Provider] - Additional Instructions: If you develop fevers, sweats, chills, return to the ED immediately If you develop any worsening swelling, redness to the cheek, pain to the right side of the neck, difficulty swallowing or difficulty opening the mouth, return to the ED immediately Clindamycin 4 times daily 7 days Ice to the area Cloves to the area for discomfort Ibuprofen 4 times daily You may also take your at home Vicodin Try to use these medications intermittently (every 3 hours) for pain control - Billing Disposition and Condition Condition: STABLE Disposition: Home
== END | disposition home or self-care (01) ==
LOC: ED 05:35
DX: K08.89 Other specified disorders of teeth and supporting structures (principal); R22.0 Localized swelling, mass and lump, head
CPT/HCPCS: 96372; 99282; A9270-GY; J0696

== ENCOUNTER 2018-05-20 06:14 | Emergency (ER) | payer BC ==
--- NOTE | 2018-05-20 06:23 | ED ---
HPI Chest Pain - HPI Summary HPI Summary: Pt. is a 32 y.o female who presents to the ER for nausea, vomiting and chest pain that started early this morning. Pt. states she had 3 episodes of vomiting that caused her sharp chest pain. Pt .denies diarrhea. Notes epigastric pain. Pt. notes recent bronchitis that is improving. Hx of anxiety, chronic pain, and asthma. No definite family hx of cardiac disease but stats her mother when she was 42 of unknown causes. Pt. does not a hx of tachycardia. Pt. denies smoking but admits to marijuana and occasional ETOH use. Symptoms are moderate in severity. No current modifying factors. Sharp CP feels better with massage pt. notes. - History of Current Complaint Time Seen by Provider: 05/20/18 06:22 Hx Obtained From: Patient Hx Last Menstrual Period: 03/01/16 - Additional Pertinent History Primary Care Physician: SANJIV - Allergy/Home Medications Allergies/Adverse Reactions: Allergies Allergy/AdvReac Type Severity Reaction Status Date / Time nickel Allergy Severe Rash Verified 04/01/18 16:48 PMH/Surg Hx/FS Hx/Imm Hx Previously Healthy: Yes Endocrine/Hematology History: Reports: Hx Anemia - took Fe in past -not currently Denies: Hx Anticoagulant Therapy, Hx Blood Disorders, Hx Diabetes, Hx Thyroid Disease, Hx Unexplained Bleeding Cardiovascular History: Denies: Hx Aneurysm, Hx Congenital Heart Disease, Hx Hypertension, Hx Myocardial Infarction, Hx Pacemaker/ICD, Hx Valvular Heart Disease Respiratory History: Reports: Hx Asthma Denies: Hx Chronic Obstructive Pulmonary Disease (COPD), Hx Pneumonia, Hx Pulmonary Embolism, Hx Sleep Apnea GI History: Denies: Hx Gall Bladder Disease, Hx Gastroesophageal Reflux Disease, Hx Gastrointestinal Bleed, Hx Irritable Bowel, Hx Obstructive Bowel, Hx Ulcer History: Denies: Hx Dialysis, Hx Kidney Infection, Hx Kidney Stones, Hx Renal Disease Musculoskeletal History: Reports: Other Musculoskeletal History - chronic hip pain - takes flexeril Sensory History: Reports: Hx Contacts or Glasses Denies: Hx Hearing Aid Opthamlomology History: Reports: Hx Contacts or Glasses Neurological History: Reports: Hx Migraine, Other Neuro Impairments/Disorders - RLS - takes gabapentin Psychiatric History: Reports: Hx Anxiety, Hx Depression, Hx Panic Disorder - Surgical History Surgery Procedure, Year, and Place: None Infectious Disease History: Denies: Hx Clostridium Difficile, Hx Hepatitis, Hx Human Immunodeficiency Virus (HIV), Hx of Known/Suspected MRSA, Hx Shingles, Hx Tuberculosis, Hx Known/ Suspected VRE, Hx Known/Suspected VRSA, History Other Infectious Disease - Family History Known Family History: Positive: Cardiac Disease Negative: Hypertension Family History: NON CONTRIBUTORY - Social History Occupation: Employed Full-time Lives: With Family Alcohol Use: Weekly Hx Substance Use: Yes Substance Use Type: Reports: Marijuana Substance Use Comment - Amount & Last Used: OCCASIONALLY for insomnia Hx Tobacco Use: Yes - quit 4 years ago Smoking Status (MU): Former Smoker Type: Cigarettes Amount Used/How Often: september 15, 2014 Have You Smoked in the Last Year: Yes Review of Systems Constitutional: Negative Negative: Fever, Chills Eyes: Negative ENT: Negative Positive: Chest Pain Positive: Cough. Negative: Shortness Of Breath Positive: Abdominal Pain, Vomiting, Nausea. Negative: Diarrhea Genitourinary: Negative Skin: Negative Neurological: Negative All Other Systems Reviewed And Are Negative: Yes Physical Exam Triage Information Reviewed: Yes Vital Signs Reviewed: Yes Appearance: Positive: Well-Appearing - Pt. sitting up in bed in NAD. Family member present. Skin: Positive: Warm, Dry Head/Face: Positive: Normal Head/Face Inspection Eyes: Positive: Normal, EOMI Neck: Positive: Supple Respiratory/Lung Sounds: Positive: Other - A few crackles in bilateral bases. Good air movement. Cardiovascular: Positive: Normal, RRR Abdomen Description: Positive: Other: - Abd. is soft with mild tenderness to the epigastric region. No rebound tenderness or guarding. Negative Block sign. Neurological: Positive: Normal, CN Intact II-III Psychiatric: Positive: Affect/Mood Appropriate Diagnostics - Laboratory Result Diagrams: 05/20/18 06:41 05/20/18 06:41 Lab Statement: Any lab studies that have been ordered have been reviewed, and results considered in the medical decision making process. Chest Pain Course/Dx - Course Course Of Treatment: Pt. presenting with CP, N/V. She is afebrile with stable VS. Benign abd. exam. Will obtain labs, ECG and CXR. Pt. given zofran and pepcid. ECG done at 0616 shows a sinus rhythm of 74 bpm, normal axis, appropriate intervals, no ST elevation or depression. CBC unremarkable. CMP unremarkable other than mildly elevated lipase at 193. Normal LFTs. CXR negative for acute findings per radiology. On re-exam pt. resting comfortably. She states pepcid made her sx worse. She has no RUQ pain. She denies daily etoh use or recent heavy use. Results discussed. Suspect gastritis. GI cocktail given. Pt. states she has a full rx of Protonix and zofran at home. Advised her to take these daily as directed x 2 weeks. Pt. to calh her PCP today to schedule a close f.u apt. for repeat labs. Pt. notes she is a heavy coffee drinking. Advised to avoid caffeine, spice, acid, etoh. To return to ER for increased pain, vomiting, fever, or if concerned. Pt. understands and agrees with plan. Case discussed with Dr. Kothari. - Chest Pain Differential Diagnosis/HQI/PQRI: Acute SD, Chest Wall, GI Disease, Lower Respiratory Infection, Pulmonary Embolism - Diagnoses Provider Diagnoses: Gastritis Discharge - Sign-Out/Discharge Documenting (check all that apply): Patient Departure - Discharge Plan Condition: Good Disposition: HOME Patient Education Materials: Gastritis (ED) Forms: *Work Release Referrals: Marcelle Sol MD [Primary Care Provider] - Additional Instructions: Call your PCP today to schedule a recheck appointment in 2-3 days Take Protonix 20mg daily x 2 weeks Zofran as directed for nausea and vomiting Increase fluids Avoid caffeine, foods high in spice, fat, acid, alcohol Return to ER for increased pain, fever, uncontrollable vomiting or if concerned - Billing Disposition and Condition Condition: GOOD Disposition: Home
[2018-05-20] MEDS ORDERED: Famotidine TAB* 20 MG PO ONE (06:34)
[2018-05-20] MEDS ORDERED: Ondansetron INJ* 2 MG/ML VIAL IV ONE (06:34)
[2018-05-20] MEDS ORDERED: Ondansetron TAB* 4 MG PO ONE (06:46)
[2018-05-20] MEDS ORDERED: Ondansetron ODT TAB* 4 MG ONE (06:47)
--- OUTSIDE RECORDS SUMMARY | 2018-05-20 06:49 | XMS REPORT ---
:1985 External Reference #:[id number] Author Organization [facility] Address [address] [place] [address] Phone [phone] Care Team Providers Name Role Phone Marcelle Sol M.D. 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 Primary Care Physician Unavailable Payers Type Date Identification Numbers Payment Provider Subscriber Commercial Policy Number: [id number] Malorie Brooks PayID: [id number] [address] [address] [place] [address] Medigap Part B Effective: 2014 Policy Number: Malorie Dugan [id number] Expires: 2015 PayID: [id number] [address] [place] [address] Problems Date Description Provider Status Onset: 04/17/2017 Migraine Marcelle Sol M.D. Active Onset: 06/25/2017 Arthralgia of the pelvic region and thigh Marcelle Sol M.D. Active Onset: 06/25/2017 Generalized anxiety disorder Marcelle Sol M.D. Active Family History Date Family Member(s) Problem(s) Comments Father Pt has no knowledge of her father's medical hx Mother due to Unknown Causes () - age 44 - ? 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 x 1 week Alprazolam 10/17/ Active Tablets 0.25mg 30tabs 1 every a F41.1 Marcelle 2017 day as [place], needed M.D. anxiety Hydrocortisone 09/03/ Active Cream 2.5% 30gm apply to [facility] 2017 affected [facility] area M.D. twice a day as needed Gabapentin / Active Capsules 300mg 3 Tab QHS Unknown 0000 Nexplanon / Active Implant 68mg 2016 Unknown 0000 Ventolin HFA / Active Aerosol 108(90Base 18gm take 1-2 ) mcg/Act puffs [facility] inhaled M.D. every 4 hours as needed Ibuprofen 200 / Active Tablets 200mg 3 by Unknown 0000 mouth twice a day prn Triamcinolone / Active Cream apply to Unknown Acetonide 0000 affected skin twice a day Baclofen / Active Tablets 10mg take 1/2 Unknown 0000 to 1 tablet by mouth twice a day as needed for spasms Metoclopramide / Active Tablets 5mg take Unknown HCL 0000 one-half tablet by mouth once daily except on day take one whole tablet Ketorolac / Active Tablets 10mg take one Unknown Tromethamine 0000 by mouth three times daily as needed for pain Morphabond ER / Active Tab ER 12H 15mg bid Unknown 0000 Abuse-Det Naproxen 12/28/ Hx Tablets 500mg 60tabs take one M54.5 Kaila 2018 - tablet by Sami, 05/08/ mouth [employer] 2018 every 12 hours with food Hydrocodone-Ibup 12/13/ Hx Tablets 7.5-200mg 60tabs 1 by M54.5 Kaila roagusto 2018 - mouth Sami, 03/19/ twice a [employer] 2017 day as needed pain Zonisamide 11/12/ Hx Capsules 25mg 10caps tid Jan Méndez - Jony 05/08/ MD michael 2017 Valium 08/13/ Hx Tablets 2mg 90tabs 1 tab F41.1 Nighat 2018 - three [place], 05/08/ times a Afnp-C 2017 day as needed M54.5 Hydrocodone-Acetaminophen 08/13/2017 Hx Tablets 10-325mg 60tabs 2 tab by S39.012A Kaila - mouth at [facility], 03/19/2018 bedtime [employer] DEVELOPER as needed M25.552 M54.5 Meloxicam 07/21/2017 - Hx Tablets 15mg 30tabs take one Marcelle 11/12/2017 tablet by [place], mouth once M.D. daily with food Cymbalta 06/25/2017 - Hx Caps DR 30mg 30caps 1 tab daily Kaila 05/08/2018 Part in addition Sami, in to 60mg [employer]EL[employer] tab Cyclobenzaprine HCL 05/30/2017 - Hx Tablets 10mg 120tabs 1/2-1 tab 5 Marcelle 05/08/2018 q6 hours as .55 [place], needed 2 M.D. Hydrocodone-Acetami 05/02/2017 - Hx Tablets 7.5-325 60tabs 2 by mouth S39 Marcelle nophen 08/13/2017 mg every at .01 [place], bedtime as 2A M.D. needed for back pain M25.552 Oxycodone-Acetaminophen 04/17/2017 Hx Tablets 5-325mg 30tabs 1 tab by S39.012A Marcelle - mouth at [place], 05/02/2017 bedtime M.D. M25.552 Duloxetine HCL 04/17/2017 - Hx Caps DR 60mg 30caps 1 by mouth F41.1 Kaila 05/08/2018 Part every day MARY Gallardo Celebrex 03/19/2017 - Hx Capsules 200mg 30caps take one Kaila 04/17/2017 capsule by Sami mouth once [employer] DEVEL[employer] or twice a day as needed Diclofenac 03/12/2017 - Hx Tablets DR 75mg 60tabs take 1 M25.552 Kaila Sodium 03/19/2017 tablet by Sami mouth [employer]EL[employer] twice daily as needed for joint pain Sertraline HCL 10/05/2016 - Hx Tablets 50mg 30tabs 1 by mouth F41.1 Kaila 03/12/2017 every day Sami, [employer] DEVELOPER Hydrocodone-Ac 10/05/2016 - Hx Tablets 5-325mg 60tabs 2 by mouth S39.012A Kaila etaminophen 04/17/2017 every at Sami, bedtime as [employer] DEVELOPER needed for back pain M25.552 Physical Therapy 10/05/2016 - Hx treatment and S39.012A Kaila 12/04/2016 evaluation of Sami, mid back and [employer]ELOPER bilat hip pain Tramadol HCL 04/13/2016 - Hx Tablets 50mg 60t 1-2 every 12h S39.012A Kaila 10/04/2016 abs as needed Sami, pain [employer] DEVELOPER Physical Therapy 04/04/2016 - Hx treatment and S39.012A Nighat 10/05/2016 evaluation of [place], l lower back Afnp-C strain Viridiana 12/29/2015 - Hx Tablets 3-0.0 1pk take as Kaila 04/04/2016 2mg directed Sami, [employer] DEVELOPER Alprazolam 09/16/2015 - Hx Tablets 0.25m 60t 1 every F41.1 Marcelle 08/13/2017 g abs qd-bid a day [place], as needed M.D. anxiety Buspirone HCL - Hx Tablets 5mg take one Unknown 10/07/2015 tablet by mouth three times a day Escitalopram - Hx Tablets 20mg 30t 1 by mouth F41.1 Kaila Oxalate 04/04/2016 abs every day Sami, FIN[employer]CIAL DEVELOPER Progesterone Mini - Hx Capsules 1 po qd Unknown Pill 04/17/2017 Ibuprofen - Hx Tablets 800mg 1 po 4-6 hrs Unknown 07/21/2017 prn Ferrous Sulfate - Hx Tablets 324(6 Once daily Unknown 10/05/2016 5Fe) mg Biotin - Hx Tablets 1000m Unknown 06/24/2017 cg Rizatriptan - Hx Tablets 10mg 1 tab by Unknown Benzoate 05/08/2018 Dispers mouth at onset migraine can repeat 2 hours later Ondansetron - Hx Tablets 4mg 30t 1 tab by Marcelle 05/08/2018 Dispers abs mouth every 6 [place], hours as M.D. needed Cyclobenzaprine - Hx Tablets 5mg 120 1 po q 8h M25.552 Kaila HCL 05/30/2017 tab during the Sami, s day and 2 q [employer]CIAL DEVELOPER hs Augmentin - Hx 1 po bid Unknown 07/21/2017 Zonisamide - Hx Capsules 25mg 6 po qd Unknown 11/12/2017 Fioricet - Hx Capsules 50-30 1-2 every 6 Unknown 11/12/2017 0-40m hours as g needed Naproxen - Hx Tablets 500mg 1 by mouth Unknown 07/21/2017 twice a day with food prn Zonisamide - Hx Capsules 100mg take 1 cap by Jan Schumacher 11/12/2017 mouth every Carl albrecht MD Cyproheptadine HCL - Hx Tablets 4mg 1/2 in the am Unknown 05/08/2018 and 1/2 in the pm Vital Signs Date Vital Result Comment 05/08/2018 BP Systolic 108 mmHg BP Diastolic 64 mmHg Heart Rate 90 /min Body Temperature 98.2 F Respiratory Rate 18 /min O2 % BldC Oximetry 98 % Height 69 inches 5'9" Weight 126.00 lb BMI (Body Mass Index) 18.6 kg/m2 12/28/2017 BP Systolic 102 mmHg BP Diastolic 80 mmHg Heart Rate 74 /min Body Temperature 98.5 F Respiratory Rate 16 /min Height 69 inches 5'9" Weight 121.12 lb BMI (Body Mass Index) 17.9 kg/m2 12/13/2017 BP Systolic 128 mmHg BP Diastolic 82 mmHg Heart Rate 106 /min Body Temperature 98.4 F Height 69 inches 5'9" Weight 119.00 lb BMI (Body Mass Index) 17.6 kg/m2 11/12/2017 BP Systolic 102 mmHg BP Diastolic 68 mmHg Heart Rate 90 /min Body Temperature 98.6 F Respiratory Rate 16 /min Weight 117.00 lb 10/11/2017 BP Systolic 118 mmHg BP Diastolic 72 mmHg Heart Rate 80 /min Body Temperature 98.2 F Height 69 inches 5'9" Weight 114.00 lb BMI (Body Mass Index) 16.8 kg/m2 09/03/2017 BP Systolic 116 mmHg BP Diastolic 60 mmHg Heart Rate 90 /min Body Temperature 98.6 F Respiratory Rate 16 /min Height 69 inches 5'9" Weight 125.50 lb BMI (Body Mass Index) 18.5 kg/m2 08/13/2017 BP Systolic 104 mmHg BP Diastolic 60 mmHg Heart Rate 108 /min Body Temperature 98.0 F Respiratory Rate 16 /min Height 69 inches 5'9" Weight 121.25 lb BMI (Body Mass Index) 17.9 kg/m2 07/21/2017 BP Systolic 116 mmHg BP Diastolic 74 mmHg Heart Rate 120 /min Body Temperature 98.6 F Respiratory Rate 16 /min Height 69 inches 5'9" Weight 120.38 lb BMI (Body Mass Index) 17.8 kg/m2 06/25/2017 BP Systolic 110 mmHg BP Diastolic 60 mmHg Heart Rate 84 /min Body Temperature 99.1 F Respiratory Rate 16 /min Height 69 inches 5'9" Weight 130.38 lb BMI (Body Mass Index) 19.3 kg/m2 04/17/2017 BP Systolic 134 mmHg BP Diastolic 88 mmHg Heart Rate 96 /min Body Temperature 97.9 F Height 69 inches 5'9" Weight 127.00 lb BMI (Body Mass Index) 18.8 kg/m2 03/12/2017 BP Systolic 122 mmHg BP Diastolic 80 mmHg Heart Rate 74 /min Body Temperature 98.2 F Height 69 inches 5'9" Weight 124.38 lb BMI (Body Mass Index) 18.4 kg/m2 12/04/2016 BP Systolic 118 mmHg BP Diastolic 72 mmHg Heart Rate 72 /min Body Temperature 97.9 F Height 69 inches 5'9" Weight 128.00 lb BMI (Body Mass Index) 18.9 kg/m2 10/05/2016 BP Systolic 110 mmHg BP Diastolic 78 mmHg Heart Rate 72 /min Body Temperature 98.1 F Respiratory Rate 16 /min Height 69 inches 5'9" Weight 130.00 lb BMI (Body Mass Index) 19.2 kg/m2 04/13/2016 BP Systolic 124 mmHg BP Diastolic 90 mmHg Heart Rate 68 /min Body Temperature 97.9 F Respiratory Rate 16 /min Height 69 inches 5'9" Weight 135.38 lb BMI (Body Mass Index) 20.0 kg/m2 04/04/2016 BP Systolic 120 mmHg BP Diastolic 70 mmHg Heart Rate 84 /min Body Temperature 97.7 F Height 69 inches 5'9" Weight 134.00 lb BMI (Body Mass Index) 19.8 kg/m2 10/07/2015 BP Systolic 126 mmHg BP Diastolic 70 mmHg Heart Rate 64 /min Body Temperature 98.1 F Respiratory Rate 16 /min Height 69 inches 5'9" Weight 124.00 lb BMI (Body Mass Index) 18.3 kg/m2 09/16/2015 BP Systolic 110 mmHg BP Diastolic 70 mmHg Heart Rate 68 /min Body Temperature 96.5 F Height 69 inches 5'9" Weight 128.00 lb BMI (Body Mass Index) 18.9 kg/m2 Results Test Date Test Result H/L Range Note CBC Auto Diff 04/01/2018 White Blood Count 11.4 10^3/uL High 3.5-10.8 Red Blood Count 4.03 10^6/uL 4.00-5.40 Hemoglobin 12.3 g/dL 12.0-16.0 Hematocrit 37 % 35-47 Mean Corpuscular Volume 92 fL 80-97 Mean Corpuscular Hemoglobin 31 pg 27-31 Mean Corpuscular HGB Conc 33 g/dL 31-36 Red Cell Distribution Width 13 % 10.5-15 Platelet Count 259 10^3/uL 150-450 Mean Platelet Volume 7.4 fL 7.4-10.4 Abs Neutrophils 8.6 10^3/uL High 1.5-7.7 Abs Lymphocytes 1.9 10^3/uL 1.0-4.8 Abs Monocytes 0.7 10^3/uL 0-0.8 Abs Eosinophils 0.1 10^3/uL 0-0.6 Abs Basophils 0 10^3/uL 0-0.2 Abs Nucleated RBC 0 10^3/uL Granulocyte % 76.1 % 38-83 Lymphocyte % 16.6 % Low 25-47 Monocyte % 5.8 % 0-7 Eosinophil % 1.1 % 0-6 Basophil % 0.4 % 0-2 Nucleated Red Blood Cells % 0 Comp Metabolic Panel 04/01/2018 Sodium 137 mmol/L 135-145 Potassium 3.7 mmol/L 3.5-5.0 Chloride 106 mmol/L 101-111 Co2 Carbon Dioxide 28 mmol/L 22-32 Anion Gap 3 mmol/L 2-11 Glucose 85 mg/dL 70-100 Blood Urea Nitrogen 13 mg/dL 6-24 Creatinine 0.54 mg/dL 0.51-0.95 BUN/Creatinine Ratio 24.1 High 8-20 Calcium 8.9 mg/dL 8.6-10.3 Total Protein 6.6 g/dL 6.4-8.9 Albumin 4.0 g/dL 3.2-5.2 Globulin 2.6 g/dL 2-4 Albumin/Globulin Ratio 1.5 1-3 Total Bilirubin 0.50 mg/dL 0.2-1.0 Alkaline Phosphatase 44 U/L 34-104 Alt 22 U/L 7-52 Ast 25 U/L 13-39 Egfr Non- 132.6 >60 Egfr 160.4 >60 1 CBC Auto Diff 01/18/2018 White Blood Count 12.2 10^3/uL High 3.5-10.8 Red Blood Count 4.38 10^6/uL 4.00-5.40 Hemoglobin 13.3 g/dL 12.0-16.0 Hematocrit 40 % 35-47 Mean Corpuscular Volume 92 fL 80-97 Mean Corpuscular Hemoglobin 30 pg 27-31 Mean Corpuscular HGB Conc 33 g/dL 31-36 Red Cell Distribution Width 13 % 10.5-15 Platelet Count 315 10^3/uL 150-450 Mean Platelet Volume 7.9 um3 7.4-10.4 Abs Neutrophils 7.1 10^3/uL 1.5-7.7 Abs Lymphocytes 4.1 10^3/uL 1.0-4.8 Abs Monocytes 0.7 10^3/uL 0-0.8 Abs Eosinophils 0.3 10^3/uL 0-0.6 Abs Basophils 0.1 10^3/uL 0-0.2 Abs Nucleated RBC 0 10^3/uL Granulocyte % 57.7 % 38-83 Lymphocyte % 33.5 % 25-47 Monocyte % 5.3 % 0-7 Eosinophil % 2.7 % 0-6 Basophil % 0.8 % 0-2 Nucleated Red Blood Cells % 0 Comp Metabolic Panel 01/18/2018 Sodium 136 mmol/L 135-145 Potassium 3.9 mmol/L 3.5-5.0 Chloride 106 mmol/L 101-111 Co2 Carbon Dioxide 24 mmol/L 22-32 Anion Gap 6 mmol/L 2-11 Glucose 97 mg/dL 70-100 Blood Urea Nitrogen 12 mg/dL 6-24 Creatinine 0.66 mg/dL 0.51-0.95 BUN/Creatinine Ratio 18.2 8-20 Calcium 9.4 mg/dL 8.6-10.3 Total Protein 6.8 g/dL 6.4-8.9 Albumin 4.4 g/dL 3.2-5.2 Globulin 2.4 g/dL 2-4 Albumin/Globulin Ratio 1.8 1-3 Total Bilirubin 0.50 mg/dL 0.2-1.0 Alkaline Phosphatase 50 U/L 34-104 Alt 21 U/L 7-52 Ast 18 U/L 13-39 Egfr Non- 105.2 >60 Egfr 127.2 >60 2 Laboratory test finding 01/18/2018 Magnesium 2.0 mg/dL 1.9-2.7 C Reactive Protein < 1.00 mg/L <8.01 Laboratory test 10/30/2017 Clotest SEE RESULT BELOW 3 finding Laboratory test 10/30/2017 Surgical Interface Order SEE RESULT BELOW 4 finding Laboratory test 10/12/2017 C Difficile PCR SEE RESULT BELOW 5, 6 finding Celiac Panel 10/11/2017 Tissue Transglutaminase IgA <1.2 U/mL 7 Ab Immunoglobulin A 281 mg/dL 61 - 356 Celiac Interpretation See Comment 8 Laboratory test finding 10/11/2017 Lyme Disease Serology Negative Negative 9 CBC Electronic (a New) 10/11/2017 WBC 8.38 4.0-10.0 RBC 4.25 3.93-6.0 Hemoglobin (Fma/CMC/CTX) 13.0 g/dL 12.0-17.0 Hematocrit (Fma/CMC/CTX) 39.0 % 35.0-50.0 Mean Corpuscular Vol 91.8 fL 80-95 Mean Corpuscular Hemoglobin 30.6 pg 25.6-32.2 Mean Corpuscular Hemo Concen 33.3 g/dL 32.2-36.0 Platelets 350 10^3/ul 163-400 RDW-CV 12.1 11.6-14.4 Mean Platelet Volume 9.8 fL 9.4-12.4 Absolute Neutrophils BLD 5.23 1.56-6.13 Absolute Lymphocytes 2.42 1.18-3.74 Absolute Monocytes BLD Auto 0.53 0.24-0.82 Absolute Eos Blood 0.14 0.04-0.54 Absolute Basophils 0.05 0.01-0.08 Neutrophil % 62.4 34.0-70.0 Lymph% 28.9 % 20.0-52.0 Monocytes % 6.3 % 5.0-12.0 Eos % 1.7 % 0.7-7.0 Basophil% 0.6 % 0.1-1.2 Laboratory test 10/11/2017 Sedimentation Rate 13 mm finding Laboratory test 08/09/2017 HIV 1&2 AB Self Nonreactive Nonreactive 10 finding Referred Hepatitis Acute Panel 08/09/2017 Hepatitis B Surface Nonreactive Nonreactive Antigen Hepatitis A AB IgM Nonreactive Nonreactive Hepatitis C Antibody Nonreactive Nonreactive Hepatitis B Core IgM Nonreactive Nonreactive Laboratory test finding 08/09/2017 Free T4 (Free Thyroxine) 0.69 ng/dL 0.61-1.12 CBC Auto Diff 08/09/2017 White Blood Count 8.9 10^3/uL 3.5-10.8 Red Blood Count 4.06 10^6/uL 4.0-5.4 Hemoglobin 12.4 g/dL 12.0-16.0 Hematocrit 37 % 35-47 Mean Corpuscular Volume 91 fL 80-97 Mean Corpuscular Hemoglobin 30 pg 27-31 Mean Corpuscular HGB Conc 34 g/dL 31-36 Red Cell Distribution Width 13 % 10.5-15 Platelet Count 283 10^3/uL 150-450 Mean Platelet Volume 8.2 um3 7.4-10.4 Abs Neutrophils 4.8 10^3/uL 1.5-7.7 Abs Lymphocytes 3.5 10^3/uL 1.0-4.8 Abs Monocytes 0.3 10^3/uL 0-0.8 Abs Eosinophils 0.1 10^3/uL 0-0.6 Abs Basophils 0.1 10^3/uL 0-0.2 Abs Nucleated RBC 0 10^3/uL Granulocyte % 54.5 % 38-83 Lymphocyte % 40.1 % 25-47 Monocyte % 3.5 % 0-7 Eosinophil % 1.3 % 0-6 Basophil % 0.6 % 0-2 Nucleated Red Blood Cells % 0 Laboratory test finding 08/09/2017 Lyme Disease Serology Negative Negative 11 Syphillis Igg W/Reflex RPR Nonreactive Nonreactive 12 Vitamin B12 553 pg/mL 180-914 13 Connective Tissue Panel 08/09/2017 Anti-Nuclear Antibody 0.3 U 14 Cyclic Citrullinated Peptide <15.6 U 15 Interpretation See Comment 16 Ssa/SSB Abs Igg 08/09/2017 SS-A/Ro Antibody <0.2 U 17 SS-B/La Antibody 0.7 U 18 Hla B27 08/09/2017 Hla B27 Negative 19 Hla B27 Interp See Comment 20 Ella Panel--LD (CMC) 08/09/2017 Rheumatoid Factor <10 IU/mL 0-14 21 U1 PENCIL INSPECTOR/SNRNP Igg Autoabs <0.2 U 22 Laboratory test finding 08/09/2017 TSH (Thyroid Stim Horm) 1.50 mcIU/mL 0.34-5.60 Magnesium 2.1 mg/dL 1.9-2.7 Erythrocyte Sed Rate 10 mm/Hr 0-14 C Reactive Protein < 1.00 mg/L < 5.00 23 Comp Metabolic Panel 08/09/2017 Sodium 136 mmol/L Low 139-145 Potassium 3.4 mmol/L Low 3.5-5.0 Chloride 108 mmol/L 101-111 Co2 Carbon Dioxide 21 mmol/L Low 22-32 Anion Gap 7 mmol/L 2-11 Glucose 100 mg/dL 70-100 Blood Urea Nitrogen 12 mg/dL 6-24 Creatinine 0.60 mg/dL 0.51-0.95 BUN/Creatinine Ratio 20.0 8-20 Calcium 9.1 mg/dL 8.6-10.3 Total Protein 6.7 g/dL 6.4-8.9 Albumin 4.1 g/dL 3.2-5.2 Globulin 2.6 g/dL 2-4 Albumin/Globulin Ratio 1.6 1-3 Total Bilirubin 0.30 mg/dL 0.2-1.0 Alkaline Phosphatase 49 U/L 34-104 Alt 15 U/L 7-52 Ast 17 U/L 13-39 Egfr Non- 118.2 >60 Egfr 152.0 >60 24 Chlamydia/GC 07/21/2017 Chlamydia trachomatis, Negative Negative 25, 26 Amplification Jazmin Neisseria gonorrhoeae, Jazmin Negative Negative 25, 27 Toxassure Select 13 (MW) 07/19/2017 Report Summary FINAL 28 PDF . Laboratory test finding 07/19/2017 PDF [id number] SEE IMAGE CBC Electronic (Fma New) 07/19/2017 WBC 12.93 High 4.0-10.0 RBC 4.14 3.93-6.0 Hemoglobin (Fma/CMC/CTX) 12.6 g/dL 12.0-17.0 Hematocrit (Fma/CMC/CTX) 37.5 % 35.0-50.0 Mean Corpuscular Vol 90.6 fL 80-95 Mean Corpuscular Hemoglobin 30.4 pg 25.6-32.2 Mean Corpuscular Hemo Concen 33.6 g/dL 32.2-36.0 Platelets 391 10^3/ul 163-400 RDW-CV 12.6 11.6-14.4 Mean Platelet Volume 8.7 fL Low 9.4-12.4 Absolute Neutrophils BLD 8.87 High 1.56-6.13 Absolute Lymphocytes 3.43 1.18-3.74 Absolute Monocytes BLD Auto 0.46 0.24-0.82 Absolute Eos Blood 0.08 0.04-0.54 Absolute Basophils 0.06 0.01-0.08 Neutrophil % 68.6 34.0-70.0 Lymph% 26.5 % 20.0-52.0 Monocytes % 3.6 % Low 5.0-12.0 Eos % 0.6 % Low 0.7-7.0 Basophil% 0.5 % 0.1-1.2 Comprehensive Metabolic Prof 07/19/2017 Sodium 137 mEq/L 134-149 Potassium 3.7 mEq/L 3.6-5.5 Chloride 106 mEq/L 94-112 Carbon Dioxide 22 mEq/L 21-32 Glucose 106 mg/dL High 70-105 29 BUN 8 mg/dL 6-26 Creatinine 0.6 mg/dL 0.6-1.4 BUN/Creat Ratio 13.3 CALC 8.0-36.0 Calcium 9.2 mg/dL 8.6-10.2 Total Protein 7.0 g/dL 6.4-8.3 Albumin 4.4 g/dL 3.8-5.5 Globulin 2.6 g/dL 2.0-4.8 A/G Ratio 1.7 CALC 0.6-2.3 Alk. Phosphatase 71 U/L 30-110 Alt (SGPT) 32 U/L 7-35 Ast (Sgot) 19 U/L 5-34 Total Bilirubin 0.2 mg/dL 0.2-1.3 GFR Non- >60 ml/min/1.73m^ >=60 GFR >60 ml/min/1.73m^ >=60 Laboratory test finding 07/19/2017 TSH 1.62 mIU/L 0.50-6.00 Free T4 0.78 ng/dL 0.75-1.54 Laboratory test finding 07/10/2017 Partial Thrombo Time 26.7 seconds 26.0 -36.3 PTT D Dimer Quantitative < 200 ng/mL Less Than 230 30 Inr/Protime 07/10/2017 Inr 0.93 0.77-1.02 Laboratory test finding 07/10/2017 Magnesium 2.2 mg/dL 1.9-2.7 Lipase < 10 U/L Low 11.0-82.0 C Reactive Protein 21.22 mg/L High < 5.00 31 HCG < 0.60 mIU/mL 32 Comp Metabolic Panel 07/10/2017 Sodium 137 mmol/L 133-145 Potassium 3.6 mmol/L 3.5-5.0 Chloride 107 mmol/L 101-111 Co2 Carbon Dioxide 23 mmol/L 22-32 Anion Gap 7 mmol/L 2-11 Glucose 98 mg/dL 70-100 Blood Urea Nitrogen 11 mg/dL 6-24 Creatinine 0.68 mg/dL 0.51-0.95 BUN/Creatinine Ratio 16.2 8-20 Calcium 9.8 mg/dL 8.6-10.3 Total Protein 7.9 g/dL 6.4-8.9 Albumin 4.4 g/dL 3.2-5.2 Globulin 3.5 g/dL 2-4 Albumin/Globulin Ratio 1.3 1-3 Total Bilirubin 0.60 mg/dL 0.2-1.0 Alkaline Phosphatase 56 U/L 34-104 Alt 20 U/L 7-52 Ast 20 U/L 13-39 Egfr Non- 102.3 >60 Egfr 131.6 >60 33 CBC Auto Diff 07/10/2017 White Blood Count 17.0 10^3/uL High 3.5-10.8 Red Blood Count 4.41 10^6/uL 4.0-5.4 Hemoglobin 13.5 g/dL 12.0-16.0 Hematocrit 40 % 35-47 Mean Corpuscular Volume 90 fL 80-97 Mean Corpuscular Hemoglobin 31 pg 27-31 Mean Corpuscular HGB Conc 34 g/dL 31-36 Red Cell Distribution Width 13 % 10.5-15 Platelet Count 352 10^3/uL 150-450 Mean Platelet Volume 8 um3 7.4-10.4 Abs Neutrophils 13.5 10^3/uL High 1.5-7.7 Abs Lymphocytes 2.6 10^3/uL 1.0-4.8 Abs Monocytes 0.8 10^3/uL 0-0.8 Abs Eosinophils 0.1 10^3/uL 0-0.6 Abs Basophils 0 10^3/uL 0-0.2 Abs Nucleated RBC 0 10^3/uL Granulocyte % 79.3 % 38-83 Lymphocyte % 15.4 % Low 25-47 Monocyte % 4.7 % 0-7 Eosinophil % 0.3 % 0-6 Basophil % 0.3 % 0-2 Nucleated Red Blood Cells % 0 Laboratory test finding 07/10/2017 Lactic Acid 0.8 mmol/L 0.5-2.0 34 Urinalysis Profile 07/10/2017 Urine Color Padma Urine Appearance Turbid Urine Specific [place] 1.021 1.010-1.030 Urine pH 8.0 5-9 Urine Urobilinogen Negative Negative Urine Ketones 1+ Negative Urine Protein 1+(30 mg/dL) Negative Urine Leukocytes Negative Negative Urine Blood Negative Negative Urine Nitrite Negative Negative Urine Bilirubin Negative Negative Urine Glucose Negative Negative Urine White Blood Cell Absent Absent Urine Red Blood Cell 1+(3-5/hpf) Absent Urine Bacteria Absent Absent Urine Squamous Epithelial Cell Present Absent Urine Amorphous Crystals Present Absent Laboratory test finding 06/21/2017 Rapid Strep Molecular Negative Negative 35 Rapid Influenza A & B 06/21/2017 Influenza A Molecular NEGATIVE Negative 36 Molecular Influenza B Molecular NEGATIVE Negative Laboratory test finding 06/21/2017 Rapid Influenza A & B SEE RESULT BELOW 37 Antigen Rapid Strep A SEE RESULT BELOW 38 CBC Auto Diff 02/01/2016 White Blood Count 11.3 10^3/uL High 3.5-10.8 Red Blood Count 4.37 10^6/uL 4.0-5.4 Hemoglobin 12.8 g/dL 12.0-16.0 Hematocrit 39 % 35-47 Mean Corpuscular Volume 90 fL 80-97 Mean Corpuscular Hemoglobin 29 pg 27-31 Mean Corpuscular HGB Conc 33 g/dL 31-36 Red Cell Distribution Width 13 % 10.5-15 Platelet Count 332 10^3/uL 150-450 Mean Platelet Volume 8 um3 7.4-10.4 Abs Neutrophils 7.6 10^3/uL 1.5-7.7 Abs Lymphocytes 2.9 10^3/uL 1.0-4.8 Abs Monocytes 0.5 10^3/uL 0-0.8 Abs Eosinophils 0.1 10^3/uL 0-0.6 Abs Basophils 0.1 10^3/uL 0-0.2 Abs Nucleated RBC 0.01 10^3/uL Granulocyte % 67.1 % 38-83 Lymphocyte % 26.1 % 25-47 Monocyte % 4.4 % 1-9 Eosinophil % 1.2 % 0-6 Basophil % 1.2 % 0-2 Nucleated Red Blood Cells % 0.1 Comp Metabolic Panel 02/01/2016 Sodium 134 mmol/L 133-145 Potassium 3.8 mmol/L 3.5-5.0 Chloride 107 mmol/L 101-111 Co2 Carbon Dioxide 22 mmol/L 22-32 Anion Gap 5 mmol/L 2-11 Glucose 95 mg/dL 70-100 Blood Urea Nitrogen 9 mg/dL 6-24 Creatinine 0.52 mg/dL 0.51-0.95 BUN/Creatinine Ratio 17.3 8-20 Calcium 8.6 mg/dL 8.6-10.3 Total Protein 6.6 g/dL 6.4-8.9 Albumin 3.7 g/dL 3.2-5.2 Globulin 2.9 g/dL 2-4 Albumin/Globulin Ratio 1.3 1-3 Total Bilirubin 0.30 mg/dL 0.2-1.0 Alkaline Phosphatase 41 U/L 34-104 Alt 11 U/L 7-52 Ast 14 U/L 13-39 Egfr Non- 140.4 >60 Egfr 180.6 >60 39 Laboratory test finding 02/01/2016 C Reactive Protein 2.81 mg/L < 5.00 40 1 Because ethnic data is not always readily available, this report includes an eGFR for both -Americans and non- Americans. The National Kidney Disease Education Program (NKDEP) does not endorse the use of the MDRD equation for patients that are not between the ages of 18 and 70, are , have extremes of body size, muscle mass, or nutritional status, or are non- or non-. According to the National Kidney Foundation, irrespective of diagnosis, the stage of the disease is based on the level of kidney function: Stage Description GFR(mL/min/1.73 m(2)) 1 Kidney damage with normal or decreased GFR 90 2 Kidney damage with mild decrease in GFR 60-89 3 Moderate decrease in GFR 30-59 4 Severe decrease in GFR 15-29 5 Kidney failure <15 (or dialysis) 2 Because ethnic data is not always readily available, this report includes an eGFR for both -Americans and non- Americans. The National Kidney Disease Education Program (NKDEP) does not endorse the use of the MDRD equation for patients that are not between the ages of 18 and 70, are , have extremes of body size, muscle mass, or nutritional status, or are non- or non-. According to the [employer], irrespective of diagnosis, the stage of the disease is based on the level of kidney function: Stage Description GFR(mL/min/1.73 m(2)) 1 Kidney damage with normal or decreased GFR 90 2 Kidney damage with mild decrease in GFR 60-89 3 Moderate decrease in GFR 30-59 4 Severe decrease in GFR 15-29 5 Kidney failure <15 (or dialysis) 3 SEE RESULT BELOW Name: KATE BROOKS Michael : [address]: Kennedy Austin MD Acct: [id number] Unit: [id number] AGE: 32 Location: ENDO Re10/30/17 SEX: F Status: REG REF SPEC: [id number] AYSHA: 10/30/17-[address] [facility] DR: Kennedy Austin MD REQ: [id number] RECD: 10/30/17305 STATUS: LAURE TABOR DR: Marcelle Sol MD _ SOURCE: GAS ANTRUM SPDES: ORDERED: Clotest Procedure Result Reported Site Clotest Final 10/31/17- 075 ML Clotest Negative * ML - Main Lab . END OF REPORT DEPARTMENT OF PATHOLOGY, [address] [place] [address] Darek Corrales M.D. Director [facility] # [id number] 4 SEE RESULT BELOW Name: KATE BROOKS : [address]: Kennedy Austin MD Acct: [id number] Unit: [id number] AGE: 32 Location: ENDO Re10/30/17 SEX: F Status: DEP REF SPEC: [id number] AYSHA: 10/30/17-[address]: Kennedy Austin MD REQ: [id number] RECD: 10/30/17-145 STATUS: HARMONY TABOR DR: Marcelle Sol MD _ ORDERED: LEVEL 4/2 FINAL DIAGNOSIS 1. Duodenum, third portion, biopsy: -- Benign small intestinal mucosa with no significant pathologic abnormalities. -- No evidence of villous blunting or increased intraepithelial lymphocytes. -- No evidence of viral cytopathic effect or parasites. 2. Stomach, body, biopsy: -- Body-type gastric mucosa with mild chronic gastritis. -- No evidence of Helicobacter organisms. CLINICAL HISTORY Weight loss POST-OPERATIVE DIAGNOSIS EGD: larynx ? normal; esophagus ? normal, esophagogastric junction at 40 cm ? normal; stomach ? grit ? normal; duodenum ? normal; conclusion: normal EGD GROSS DESCRIPTION 1. The specimen is received in formalin labeled, Third Portion Duodenum Biopsy, and consists of a 0.7 x 0.6 x 0.2 cm aggregate of lee-pink irregular soft tissue fragments which is submitted entirely in one cassette. 2. The specimen is received in formalin labeled, Gastric Body Biopsy, and consists of two lee-white irregular soft tissue fragments averaging 0.6 x 0.3 x 0.1 cm which are submitted entirely in one cassette. Signed by and Reported on: Ly Valle MD 10/31/17 1238 END OF REPORT DEPARTMENT OF PATHOLOGY, [address] [place] [address] Darek Corrales M.D. Director [facility] # [id number] 5 C. Difficile toxin testing is not performed on formed stool specimens. Test of cure on positive 6 SEE RESULT BELOW Name: KATE BROOKS : [address]: Jan Henry MD Acct: [id number] Unit: [id number] AGE: 32 Location: [facility] Re10/12/17 SEX: F Status: REG REF SPEC: [id number] AYSHA: 10/12/17-[address] [facility] DR: Jan Henry MD REQ: [id number] RECD: 10/12/17-3827 STATUS: COMP _ SOURCE: STOOL SPDESC: ORDERED: C. diff PCR/S, Stool Culture/R, O P: Giar/Crypt/R COMMENTS: C. Difficile toxin testing is not performed on formed stool specimens. Test of cure on positive patients is not recommended. Verbal to SYLVIA RIVERA by [id number] at 1546 on 10/12/17. Procedure Result Reported Site Stool Culture Final 10/14/17- 1101 ML Result No enteric pathogens isolated Testing for Salmonella, Shigella, Aeromonas, Plesiomonas, Yersinia and Campylobacter are included in a Stool Culture. Vibrio spp not routinely tested for in a stool culture. If testing is desired, please request specifically when placing test order. Sensitivities not routinely performed on stool isolates, as antibiotics may prolong the carriage rate of bacteria. Please contact the microbiology lab if sensitivities are required. Stool Specimen Description Final 10/12/17- 1436 ML Stool Color Brown Stool Form Formed Stool Consistency Firm Shiga Toxin 1 2 Final 10/15/17- 1048 ML Organism 1 Negative Shiga Toxin 1 2 CONTINUED ON NEXT PAGE DEPARTMENT OF PATHOLOGY, [address] [place] [address] Darek Corrales M.D. Director [facility] # [id number] Patient: KATE BROOKS [id number] (Continued) Specimen: [id number] Collected: 10/12/17 Received: 10/12/17 (Continued) Procedure Result Reported Site Shiga Toxin 1 2 Final (continued) 10/15/17- 1048 Immunochromatographic Assay C. difficile PCR Final 10/12/17- 1436 ML Test not performed O P: Giardia/Cryptospor Screen Final 10/15/17- 1135 ML Organism 1 Neg Cryptosporidium/Giardia Giardia and cryptosporidium antigen testing performed by enzyme immunoassay. If patient is immunocompromised or has traveled to or is from a developing country, a full ova and parasite exam with microscopic (OPMIC) is recommended. All samples will be held one month in case full ova and parasite testing is requested. Contact the Microbiology Department at [phone]. TEST LIMITATIONS: As with all diagnostic procedures, the results obtained should be used in conjunction with other clinical information available the physician, including confirmation by another method. Negative results can occur in samples containing antigen below lower limits of detection of the assay. One negative specimen does not rule out the possibility of a parasitic infection. To improve detection it is recommended that three specimens be collected on separate days over a period of not more than seven days. The use of colonic washes, aspirates or other diluted sample types has not been established and could affect the performance of the assay. Stool samples contaminated with an oily or particulate base (eg. Barium, mineral oil etc.) could interfere with the test and are not recommended. * - [facility] . END OF REPORT DEPARTMENT OF PATHOLOGY, [address] [place] [address] Darek Corrales M.D. Director [facility] # [id number] 7 REFERENCE VALUE <4.0 (Negative) Test Performed by: [place] [id number] Negative serology. Celiac disease unlikely. However, approximately 10% of patients with celiac disease are seronegative. Also, patients who are already adhering to a gluten-free diet may be seronegative. If celiac disease is highly clinically suspected, consider HLA-DQ typing. Test Performed by: [facility] - [address] [address] 9 No evidence of antibodies to B. burgdorferi detected. False negative results may occur in recently infected patients (<=2 weeks) due to low or undetectable antibody levels to B. burgdorferi. If recent exposure is suspected, a second sample should be collected and tested in 2-4 weeks. Test Performed by: [facility] - [facility] [address] [place] [address] 10 It is recognized that currently available assays for the detection of antibodies to HIV-1 and/or HIV-2 may not detect all infected individuals. HIV antibodies may be undetectable in some stages of the infection and in some clinical conditions. The performance of this assay has not been established for populations of infants or children. Assayed by Chemiluminescence Microparticle Immunoassay on the Siemens Advia Centaur CP. Values obtained with different methods or kits cannot be used interchangeably.The diagnostic specificity of the ADVIA Centaur 1/O/2 Enhanced assay in the low risk population was 99.90% (6052/6058) with a 95% confidence interval of 99.78 to 99.96%. 11 Serologic response to B. burgdorferi infection is not detected, but cannot rule out early infection during which low or undetectable antibody levels to B. burgdorferi may be present. If clinically indicated, a new serum specimen should be submitted in 7-14 days. Test Performed by: [facility] - [facility] [address] [place] [address] 12 Warning: A positive result is not useful for establishing a diagnosis of syphilis. In most situations, such a result may reflect a prior treated infection; a negative result can exclude a diagnosis of syphilis except for incubating or early primary disease. 13 Normal Range 180 to 914 Indeterminate Range 145 to 180 Deficient Range <145 14 REFERENCE VALUE <=1.0 (Negative) 15 REFERENCE VALUE <20.0 (Negative) 16 Tests for antibodies to dsDNA and DEANGELO antigens are not performed automatically unless the ELLA result is > or= 3.0 U. Studies performed at [facility] indicate that positive ELLA results <3.0 U are rarely accompanied by positive second order tests. Test Performed by: [facility] - [address] [address] 17 REFERENCE VALUE <1.0 (Negative) 18 REFERENCE VALUE <1.0 (Negative) Test Performed by: [address] [address] 19 REFERENCE VALUE Not Applicable 20 RESULT: HLA-B27 antigen was not detected. ADDITIONAL INFORMATION Method: Flow Cytometry Performing Laboratory CLIA# [id number] Test Performed by: [address] [address] 21 Performed by [facility], [address] [place] [id number] [email or web address], Jono Posada MD - Lab. Director Test Performed by: [facility] [address] [place] [address] 22 REFERENCE VALUE <1.0 (Negative) Test Performed by: [address] [address] 23 Acute inflammation: >10.00 24 Because ethnic data is not always readily available, this report includes an eGFR for both -Americans and non- Americans. The National Kidney Disease Education Program (NKDEP) does not endorse the use of the MDRD equation for patients that are not between the ages of 18 and 70, are , have extremes of body size, muscle mass, or nutritional status, or are non- or non-. According to the National Kidney Foundation, irrespective of diagnosis, the stage of the disease is based on the level of kidney function: Stage Description GFR(mL/min/1.73 m(2)) 1 Kidney damage with normal or decreased GFR 90 2 Kidney damage with mild decrease in GFR 60-89 3 Moderate decrease in GFR 30-59 4 Severe decrease in GFR 15-29 5 Kidney failure <15 (or dialysis) 25 SRC:urine 1 urine aptima f illed between the lines 26 Source of Specimen: urine 1 urine aptima f 27 Source of Specimen: urine 1 urine aptima f 28 TOXASSURE SELECT 13 (MW) Test Result Flag Units Drug Present and Declared for Prescription Verification Alpha-hydroxyalprazolam 106 EXPECTED ng/mg creat Alpha-hydroxyalprazolam is an expected metabolite of alprazolam. Source of alprazolam is a scheduled prescription medication. Drug Present not Declared for Prescription Verification Carboxy-THC 693 UNEXPECTED ng/mg creat Carboxy-THC is a metabolite of tetrahydrocannabinol (THC). Source of THC is most commonly illicit, but THC is also present in a scheduled prescription medication. Noroxycodone 313 UNEXPECTED ng/mg creat Noroxycodone is an expected metabolite of oxycodone. Sources of oxycodone include scheduled prescription medications. Drug Absent but Declared for Prescription Verification Hydrocodone Not Detected UNEXPECTED ng/mg creat Test Result Flag Units Ref Range Creatinine 87 mg/dL >=20 Declared Medications: The flagging and interpretation on this report are based on the following declared medications. Unexpected results may arise from inaccuracies in the declared medications. Note: The testing scope of this panel includes these medications: Alprazolam Hydrocodone (Hydrocodone-Acetaminophen) Note: The testing scope of this panel does not include following reported medications: Acetaminophen (Hydrocodone-Acetaminophen) Albuterol (Ventolin HFA) Amoxicillin (Augmentin) Clavulinate (Augmentin) Cyclobenzaprine Duloxetine Duloxetine (Cymbalta) Etonogestrel (Nexplanon) Gabapentin Ibuprofen Ondansetron Rizatriptan For clinical consultation, please call . 29 NON-FASTING 30 Please note: The following may produce a false positive D Dimer test: - Rheumatoid factor greater than 60 IU/ml - Plasma hemoglobin greater than 0.05 gm/dl - Bilirubin greater than 50 mg/dl - Lipids greater than 1000 mg/dl - FDP greater than 20 ug/ml 31 Acute inflammation: >10.00 32 <5.0 Negative 5.0 - 25.0 Indeterminate (Repeat testing recommended after 72 hours) >25.0 Positive Perimenopausal women can display HCG levels of up to 20 mIU/mL 33 Because ethnic data is not always readily available, this report includes an eGFR for both -Americans and non- Americans. The National Kidney Disease Education Program (NKDEP) does not endorse the use of the MDRD equation for patients that are not between the ages of 18 and 70, are , have extremes of body size, muscle mass, or nutritional status, or are non- or non-. According to the National Kidney Foundation, irrespective of diagnosis, the stage of the disease is based on the level of kidney function: Stage Description GFR(mL/min/1.73 m(2)) 1 Kidney damage with normal or decreased GFR 90 2 Kidney damage with mild decrease in GFR 60-89 3 Moderate decrease in GFR 30-59 4 Severe decrease in GFR 15-29 5 Kidney failure <15 (or dialysis) 34 [facility] Severe Sepsis and Septic Shock Management Bundle Measure requires all lactic acids initially measuring >2.0 mmol/L be repeated. 35 [employer]: [id number] 36 [employer]: [id number] 37 SEE RESULT BELOW Name: BROOKSKATE D : [address]: Nba Rai MD Acct: [id number] Unit: [id number] AGE: 31 Location: ED Re06/21/17 SEX: F Status: REG ER SPEC: [id number] AYSHA: 06/21/[address]: Nba Rai MD REQ: [id number] RECD: 06/21/17 STATUS: LAURE TABOR DR: Marcelle Sol MD _ SOURCE: NASAL SPDESC: ORDERED: Flu A B Request Procedure Result Reported Site Rapid Influenza A B Request Final 06/21/17- 08 ML Specimen received for Influenza A/B Molecular testing * ML - MAIN LAB ([facility]) . END OF REPORT * ML=Testing performed at Main Lab DEPARTMENT OF PATHOLOGY, [address] [place] [address] Darek Corrales M.D. Director [facility] # [id number] 38 SEE RESULT BELOW Name: KATE BROOKS : [address]: Nba Rai MD Acct: [id number] Unit: [id number] AGE: 31 Location: ED Re06/21/17 SEX: F Status: REG ER SPEC: [id number] AYSHA: 06/21/[address] [facility] DR: Nba Rai MD REQ: [id number] RECD: 06/21/17 STATUS: LAURE TABOR DR: Marcelle Sol MD _ SOURCE: THROAT SPDESC: ORDERED: Strep A Request Procedure Result Reported Site Rapid Strep A Request Final 06/21/17853 ML Specimen received for Rapid Strep A Molecular testing * ML - MAIN LAB ([facility]) . END OF REPORT * ML=Testing performed at Main Lab DEPARTMENT OF PATHOLOGY, [address] [place] [address] Darek Corrales M.D. Director [facility] # [id number] 39 Because ethnic data is not always readily available, this report includes an eGFR for both -Americans and non- Americans. The National Kidney Disease Education Program (NKDEP) does not endorse the use of the MDRD equation for patients that are not between the ages of 18 and 70, are , have extremes of body size, muscle mass, or nutritional status, or are non- or non-. According to the National Kidney Foundation, irrespective of diagnosis, the stage of the disease is based on the level of kidney function: Stage Description GFR(mL/min/1.73 m(2)) 1 Kidney damage with normal or decreased GFR 90 2 Kidney damage with mild decrease in GFR 60-89 3 Moderate decrease in GFR 30-59 4 Severe decrease in GFR 15-29 5 Kidney failure <15 (or dialysis) 40 Acute inflammation: >10.00 Procedures Date CPT Code Description Status 11/12/2017 82043 Electrocardiogram Complete Completed Encounters Type Date Location Provider CPT E/M Dx Office Visit 12/28/2017 3:45p Main Office MARY Vicente 73365 M54.5 Office Visit 12/13/2017 9:00a [facility] MARY Vicente 80923 M54.5 Office Visit 11/12/2017 4:10p [facility] Jan Henry 41504 F41.1 R07.9 R10.10 R63.4 Office Visit 10/11/2017 3:30p [place] [address] R10.10 R63.4 Office Visit 09/03/2017 7:10p Main Office Marcelle Sol M.D. 19984 F41.1 M25.552 G43.009 Office Visit 08/13/2017 6:30p Main Office Marcelle Sol M.D. 59669 F41.1 M25.552 D72.829 M79.1 G43.009 Office Visit 07/21/2017 10:20a Main Office Marcelle Sol M.D. 81341 F41.1 M25.552 D72.829 M79.1 G43.009 Z11.3 R63.4 R00.0 Office Visit 06/25/2017 6:40p Main Office Marcelle Sol M.D. 18551 F41.1 M25.552 R07.9 Office Visit 04/17/2017 3:20p [facility] Marcelle Sol M.D. 87894 F41.1 M25.552 R07.9 J06.9 D72.829 Office Visit 03/12/2017 4:30p Main Office Kaila Gallardo [facility] [address] M25.552 F41.1 Office Visit 10/05/2016 9:15a [facility] Kaila Gallardo, [facility] [address] F41.1 S39.012A Office Visit 04/13/2016 1:00p [facility] Kaila Gallardo [facility] [address] F41.1 S39.012A Y93.F2 Office Visit 04/04/2016 4:15p [facility] [place] [address] S39.012A Afnp-C Y93.F2 Office Visit 10/07/2015 4:30p [facility] Kaila Gallardo, [facility] [address] F41.1 Office Visit 09/16/2015 3:30p [facility] Kaila Gallardo, [facility] [address] F41.1 Plan of Care Future Appointment(s):07/22/2018 2:20 pm - Marcelle Sol M.D. at Main [facility] - Marcelle Sol M.D.J01.90 Acute sinusitis, unspecifiedNew Medication: Levofloxacin 500 mgComments:patient was instructed to call or return if symptoms did not improve Supportive care discussed. Usetylenol or ibuprofen per directions as needed for pain and headache. Use saline rinse/martin pot twice a day for congestion. Can use mucinex 1 tab twice a day or 1 tab of Claritin or zyrtec at bedtime for congestion. Call if symptoms aren't improved or if they are worsening in the next few days.J45.21 Mild intermittent asthma with (acute) exacerbationComments:use inhaler call if symptoms worseAllComments: ~B_~U_Medication Management~b_~u_ Patient Understands medications she's taking? Yes No Are there Barriers to Adherence? Yes No Has the patient been asked about herbal supplements and therapies, and OTC meds? Yes No
--- OUTSIDE RECORDS SUMMARY | 2018-05-20 06:49 | XMS REPORT | Continuity of Care Document ---
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 Kaila Gallardo NP Primary Care Physician Unavailable Payers Type Date Identification Numbers Payment Provider Subscriber Policy Number: [id number] [employer] Kate Lam PayID: [id number] [address] [address] [place] [address] Advance Directives Description No Information Available Problems Date Description Provider Status Onset: 03/10/2016 Migraine with typical aura Brice Anglin MD Active Onset: 07/28/2016 Restless legs Brice Anglin MD Active Onset: 01/18/2017 Iliotibial band friction syndrome Milvia Grove MD Active Onset: 01/18/2017 Solitary sacroiliitis Milvia Grove MD Active Family History Date Family Member(s) Problem(s) Comments General Heart Disease Social History Type Date Description Comments Sex Unknown Marital Status Lives With Son Lives With 1 pig Lives With 2 dogs 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 Tobacco Use Start: Unknown End: Former Cigarette Smoker Unknown Smoking Status Reviewed: 04/29/18 Former Cigarette Smoker ETOH Use Consumes 1 glass of wine per day Tobacco Use Start: Unknown End: Patient is a former Unknown smoker Recreational Drug Use Denies Drug Use Exercise Type/Frequency Exercises rarely Active with 2 year old Allergies, Adverse Reactions, Alerts Date Description Reaction Status Severity Comments 01/18/2017 Nickel Active 04/29/2018 Zonisamide Active Medications Medication Date Status Form Strength Qnty SIG Indications Ordering Provider Metoclopramide 04/29 Active Tablets 5mg 60tab 1 q8h prn G43.709 Alvaro Siu HCL s nausea Giovany Wilkes Ketorolac 04/29 Active Tablets 10mg 5tabs 1 by G43.709 Alvaro Siu Tromethamine /2017 mouth Chung, every 8 M.D. hours as needed migraine max 5 doses/wk Gabapentin 06/11 Active Capsules 300mg 90cap 3 by G25.81 Brice s mouth at MD Derrek night Ondansetron 02/16 Active Tablets 4mg 30tab dissolve Dispers s one MD Derrek tablet orally every 8 hours as needed for nausea. Rizatriptan 02/16 Active Tablets 10mg 10tab take 1 Christopher Benzoate Savanah s tam Soto M.D. as needed migraine, may repeat after 2 hours, maximum 2 in 24 hours, max 2 days a week Alprazolam Active Tablets 0.25mg As needed Marcelle Ramey, / Hydrocodone-Aceta Active Tablets 10-325mg 1 by Other minophen /0000 mouth Physician daily Practices Ibuprofen Active Tablets 800mg as needed Unknown Duloxetine HCL Active Caps DR 30mg 1 by Marcelle Ramey, / Part mouth daily Duloxetine HCL Active Caps DR 60mg 1 by Marcelle Ramey, / Part mouth daily Ventolin HFA Active Aerosol 108(90Bas 2 puffs Unknown e) by mouth mcg/Act four times a day as needed Baclofen Active Tablets 10mg 1 tab tid Unknown / as needed Morphabond ER Active Tab ER 15mg 1 tab p Unknown /0000 12H bid Abuse-Det Amitriptyline HCL 01/22 Hx Tablets 10mg 90tab 1 by G43.109 Brice s mouth linsey Anglin MD - bedtime 04/28 for week then 2 at bed for 2 weeks then 3 at bedtime Cyproheptadine 11/22 Hx Tablets 4mg 45tab 1/2 pill G43.109 Brice s by mouth MD Derrek - in in the 04/29 and 1 in at night Zonegran 08/13 Hx Capsules 100mg 30cap 1 by Brice s mouth at MD Derrek - bedtime 09/03 addition to Zonegran 25 mg, 2 capsules at bedtime. Zonisamide 06/11 Hx Capsules 25mg 120ca 2 ps capsules MD Derrek - by mouth 04/28 at night /2017 Prednisone 06/09 Hx Tablets 20mg 20tab take 3 po Sybil s qam x Timmymirella, - 3days, M.D. 09/03 then 2 po qam x3 days then 1 po qam x3 days then 1/2 po qam x3 days (take in am with food) Gabapentin 06/08 Hx Capsules 300mg 150ca 2 in in G2. ps the MD Derrek - morning 06/11 and 3 at night Gabapentin 05/30 Hx Capsules 300mg 120ca 1 in am . Brice ps and 3 in MD Derrek - pm 06/08 Fioricet 12/08 Hx Capsules 50-300-40 10cap 1 by Brice mg s mouth MD Derrek - twice a 11/22 day needed headache max 2 days/wk Gabapentin 07/28 Hx Capsules 300mg 90cap 3 by G2. s mouth at MD Derrek - night 05/30 Augmentin 02/01 Hx Tablets 875-125mg 10tab 1 po q12h Alvaro S s for 5 [place], - days M.D. 03/09 Iron (Ferrous Hx Tablets 256(28Fe) 1 by Unknown Gluconate) /0000 mg mouth qd - 08/15 Cyclobenzaprine Hx Tablets 10mg 4x a day Unknown HCL /0000 as needed - 04/28 Biotin Maximum Hx Capsules 3000mcg otc Unknown Strength /0000 - 09/03 Diazepam Hx Tablets 2mg as needed Marcelle Ramey /Dafne COTTER - 04/29 Augmentin Hx Tablets 875-125mg 1 tablet Unknown /0000 by mouth - q12 hours 04/28 for days Medications Administered in Office Medication Date Status Form Strength Qnty SIG Indications Ordering Provider Triamcinolone 01/18/ Administered Injection Zaneb (Kenalog) 2016 MD Perfecto Immunizations Description No Information Available Vital Signs Date Vital Result Comment 04/29/2018 11:39am Height 70 inches 5'10" Weight 124.31 lb Heart Rate 74 /min BP Systolic Sitting 112 mmHg BP Diastolic Sitting 70 mmHg Respiratory Rate 16 /min BMI (Body Mass Index) 17.8 kg/m2 01/22/2018 12:31pm Height 70 inches 5'10" Weight 78.00 lb BP Systolic 122 mmHg BP Diastolic 90 mmHg BMI (Body Mass Index) 11.2 kg/m2 12/18/2017 11:59am Height 70 inches 5'10" Weight 123.50 lb Heart Rate 80 /min BP Systolic 112 mmHg BP Diastolic 76 mmHg BMI (Body Mass Index) 17.7 kg/m2 11/22/2017 10:57am Height 70 inches 5'10" Weight 123.00 lb Heart Rate 78 /min BP Systolic Sitting 108 mmHg BP Diastolic Sitting 64 mmHg BMI (Body Mass Index) 17.6 kg/m2 09/04/2017 11:35am Height 70 inches 5'10" Weight 123.00 lb Heart Rate 80 /min BP Systolic Sitting 144 mmHg Lue reg cuff BP Diastolic Sitting 82 mmHg Lue reg cuff Respiratory Rate 16 /min O2 % BldC Oximetry 99 % BMI (Body Mass Index) 17.6 kg/m2 Neck Circumference in inches 13.5 06/08/2017 9:01am Height 70 inches 5'10" Weight 128.00 lb Heart Rate 68 /min BP Systolic 128 mmHg BP Diastolic 88 mmHg BMI (Body Mass Index) 18.4 kg/m2 01/25/2017 2:57pm Height 70 inches 5'10" Weight 127.12 lb Heart Rate 82 /min BP Systolic 114 mmHg BP Diastolic 78 mmHg BMI (Body Mass Index) 18.2 kg/m2 01/18/2017 3:24pm Height 70 inches 5'10" Weight 130.00 lb BP Systolic 114 mmHg BP Diastolic 64 mmHg Respiratory Rate 18 /min Body Temperature 97.9 F Pain Level 6 BMI (Body Mass Index) 18.7 kg/m2 03/10/2016 8:38am Height 70 inches 5'10" Weight 133.00 lb Heart Rate 74 /min BP Systolic Sitting 102 mmHg BP Diastolic Sitting 72 mmHg BMI (Body Mass Index) 19.1 kg/m2 Results Test Date Facility Test Result H/L Range Note Comp Metabolic Panel 01/28/2016 [facility] Sodium 133 mmol/L N 133-[address] [place] [address] [phone] Potassium 3.3 mmol/L Low 3.5-5.0 Chloride 101 mmol/L N 101-111 Co2 Carbon Dioxide 25 mmol/L N 22-32 Anion Gap 7 mmol/L N 2-11 Glucose 77 mg/dL N 70-100 Blood Urea Nitrogen 9 mg/dL N 6-24 Creatinine 0.60 mg/dL N 0.51-0.95 BUN/Creatinine Ratio 15.0 N 8-20 Calcium 8.9 mg/dL N 8.6-10.3 Total Protein 6.7 g/dL N 6.4-8.9 Albumin 4.0 g/dL N 3.2-5.2 Globulin 2.7 g/dL N 2-4 Albumin/Globulin Ratio 1.5 N 1-3 Total Bilirubin 0.40 mg/dL N 0.2-1.0 Alkaline Phosphatase 42 U/L N 34-104 Alt 11 U/L N 7-52 Ast 13 U/L N 13-39 Egfr Non- 119.0 N >60 Egfr 153.1 N >60 1 Laboratory test 01/28/2016 [facility] Erythrocyte Sed 12 mm/Hr N 0-[address] [place] [address] [phone] Lyme Disease Serology Negative N Negative 2 Connective Tissue 01/28/2016 [facility] Anti-Nuclear Antibody 0.2 U N 3 Panel [address] [place] [address] [phone] Cyclic Citrullinated Peptide <15.6 U N 4 Interpretation See Comment N 5 1 Because ethnic data is not always [...] 5 Kidney failure <15 (or dialysis) 2 Serologic response to B. burgdorferi infection is not detected, but cannot rule out early infection during which low or undetectable antibody levels to B. burgdorferi may be present. If clinically indicated, a new serum specimen should be submitted in 7-14 days. Test Performed by: [facility] [place] [address] [employer] Officer: Dany Eli II, M.D., Ph.D. 3 REFERENCE VALUE <=1.0 (Negative) 4 REFERENCE VALUE <20.0 (Negative) 5 Tests for antibodies to dsDNA and DEANGELO antigens are not performed automatically unless the ELLA result is > or= 3.0 U. Studies performed at [facility] indicate that positive ELLA results <3.0 U are rarely accompanied by positive second order tests. Test Performed by: [place] [address] [employer] Officer: Dany Eli II, M.D., Ph.D. Procedures Date Code Description Status 02/28/2018 23042 Polysomnography Sleep Staging 4+ Parameters Completed 07/09/2017 53025 Sleep Study Unattended,HRT Rate,Oxygen Sat,Resp Completed Effort/Airflow 01/18/2017 39910 Inject/Drain Joint/Bursa Major W/O US Completed 01/28/2016 72389 Visual Evoked Potential Test SCOUT LEASER Completed Encounters Type Date Location Provider Dx Diagnosis Office Visit 04/04/2018 [facility] [place] Hassan L03.211 Cellulitis of 10:28a Assoc,marcelina Pittman MD face Hospitalists G43.709 Chronic migraine w/o aura, not intractable, w/o stat migr M54.5 Low back pain Office Visit 04/03/2018 10:28a [facility] L03.211 Cellulitis of Assoc,marcelina Parra D.O. face Hospitalists G43.709 Chronic migraine w/o aura, not intractable, w/o stat migr M54.5 Low back pain Office Visit 04/02/2018 10:34a [facility] Donny Loving L03.211 Cellulitis of For Monika Kwok M.D. face Diseases K02.9 Dental caries, unspecified Office Visit 04/02/2018 10:27a [facility] L03.211 Cellulitis of Assoc,pc Jordan Parra face Hospitalists G43.709 Chronic migraine w/o aura, not intractable, w/o stat migr M54.5 Low back pain Office Visit 04/01/2018 10:26a [facility] Clementine Escobar, L03.211 Cellulitis of Assoc,pc face Hospitalists G43.709 Chronic migraine w/o aura, not intractable, w/o stat migr D72.829 Elevated white blood cell count, unspecified Office 01/22/2018 [facility] G43.109 Migraine with Visit 12:30p Clinic MD Derrek aura, not intractable, w/o status migrainosus G25.81 Restless legs syndrome Office 12/18/2017 [facility] G43.109 Migraine with Visit 11:45a Clinic MD Derrek aura, not intractable, w/o status migrainosus Office 11/22/2017 [facility] G25.81 Restless legs Visit 11:00a Clinic MD Derrek syndrome G43.109 Migraine with aura, not intractable, w/o status migrainosus Office Visit 09/04/2017 11:45a [facility] Norma Reilly, R06.83 [facility] G25.81 Restless legs syndrome G43.109 Migraine with aura, not intractable, w/o status migrainosus Office 06/08/2017 [facility] G43.109 Migraine with Visit 9:00a Nelly Anglin MD aura, not intractable, w/o status migrainosus 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 Office 01/25/2017 [facility] Tejada3.109 Migraine with Visit 3:00p Clinic MD Derrek aura, not intractable, w/o status migrainosus Office 01/18/2017 [facility] Juliettepranav Grove, M76.31 Iliotibial band Visit 3:00p Of Chari COTTER syndrome, right leg M76.32 Iliotibial band syndrome, left leg M46.1 Sacroiliitis, not elsewhere classified Office 07/28/2016 [facility] G43.109 Migraine with Visit 11:30a Clinic MD Derrek aura, not intractable, w/o status migrainosus G25.81 Restless legs syndrome Office 03/10/2016 [facility] G43.109 Migraine with Visit 8:30a Clinic MD Derrek aura, not intractable, w/o status migrainosus Plan of Treatment Future Appointment(s):06/14/2018 4:00 pm - Alvaro Wilkes M.D. at [facility]/29/2018 - Alvaro Wilkes M.D.G43.709 Chronic migraine without aura, not intractable, without statNew Medication: Metoclopramide HCL 5 mg - 1 q8h prn nauseaKetorolac Tromethamine 10 mg - 1 by mouth every 8 hours as needed migraine max 5 doses/wkReferral:Radha Agustin MD, Pain Management-anesthesiRecommendations:I recommend you be considered for medical marijuana/CBD for migraines, chronic pain, and cyclical vomiting I recommend you try metoclopramide instead of ondansetron for your vomiting I recommend a trial of Botox stop GrwntpH34.559 Pain in unspecified hipG43.A0 Cyclical vomiting, not intractable
[2018-05-20 07:43] LABS: ABS Basophils 0.1 10^3/ul (0-0.2); ABS Eosinophils 0.2 10^3/ul (0-0.6); ABS Monocytes 0.5 10^3/ul (0-0.8); ABS Neutrophils 4.2 10^3/ul (1.5-7.7); ABS Nucleated RBC 0 10^3/ul; Eosinophil % 2.2 %; Hematocrit 38 % (35-47); Hemoglobin 12.6 g/dl (12.0-16.0); Lymphocyte % 29.1 %; Mean Corpuscular HGB Conc 33 g/dl (31-36); Mean Corpuscular Hemoglobin 30 pg (27-31); Mean Corpuscular Volume 90 fL (80-97); Mean Platelet Volume 7.4 fL (7.4-10.4); Nucleated Red Blood Cells % 0.1; Platelet Count 386 10^3/ul (150-450); Red Blood Count 4.19 10^6/ul (4.00-5.40); Red Cell Distribution Width 13 % (10.5-15)
[2018-05-20 08:04] LABS: ALT 20 U/L (7-52); AST 19 U/L (13-39); Albumin 3.7 g/dL (3.2-5.2); Albumin/Globulin Ratio 1.2 (1-3); Alkaline Phosphatase 51 U/L (34-104); Anion Gap 4 mmol/L (2-11); BUN/Creatinine Ratio 26.8 (8-20); Blood Urea Nitrogen 15 mg/dL (6-24); CO2 Carbon Dioxide 28 mmol/L (22-32); Chloride 107 mmol/L (101-111); EGFR Non-African American 127.1 (>60); Glucose 104 mg/dL (70-100); Potassium 4.2 mmol/L (3.5-5.0); Sodium 139 mmol/L (135-145); Total Protein 6.7 g/dL (6.4-8.9)
[2018-05-20 08:10] LABS: HCG Pregnancy < 0.60 mIU/mL
[2018-05-20] MEDS ORDERED: Lidocaine 2% VISCOUS* 15 ML UDC PO ONE (09:08)
[2018-05-20] MEDS ORDERED: Al Hydrox/Mg Hydrox/Simet LIQ* 30 ML UDC PO ONE (09:08)
[2018-05-20 09:24] VITALS: BP 108/84
== END 2018-05-20 09:27 | disposition home or self-care (01) ==
LOC: ED 06:14
DX: K29.70 Gastritis, unspecified, without bleeding (principal); G25.81 Restless legs syndrome; Z87.891 Personal history of nicotine dependence
CPT/HCPCS: 36415; 71045; 80053; 83690; 84484; 84702; 85025; 85379; 93005; 99282; A9270-GY

== ENCOUNTER 2019-02-16 10:49 | Emergency (ER) | payer BC, OTHER ==
--- OUTSIDE RECORDS SUMMARY | 2019-02-16 11:05 | XMS REPORT | Continuity of Care Document ---
:1985 External Reference #:[id number] Author Name Nick Ocampo M.D. 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 Acid/Calcium/Iron Tablets Ondansetron HCL 1 tab by mouth 30tabs R11.0 Nick Ocampo, 11/28/2018 4mg every 6 hours as M.D. Tablets needed G43.009 Calcipotriene appply to affected 120gm L20.9 Nick Ocampo, 11/12/2018 0.005% Ointment area twice a day as M.D. needed Oxycodone-Acetaminophen Take One Tablet By M25.559 Unknown Mouth Every 6 Hours 7.5-325mg Tablets as Needed, Maximum Daily Dose Of 2 Per Day-[facility] M79.606 M54.5 Morphine Sulfate ER Take 1 Tablet By Mouth Every M54.5 Unknown 15mg Tablets ER 12 Hours-[facility] M25.559 M79.606 Alprazolam 1 tab by mouth 60tabs G47.00 Nick Ocampo, 0.25mg Tablets twice a day as M.D. needed F41.9 Gabapentin Take 3 Capsules By Mouth AT M25.559 Unknown 300mg Capsules Night-[facility] M54.5 M79.606 Baclofen Take 1/2 Tablet By Mouth M25.559 Unknown 10mg Tablets Three Times Daily as Needed-[facility] M54.5 M79.606 Ketorolac Tromethamine Take 1 Tablet By Mouth M25.559 Unknown 10mg Tablets Every 8 Hours as Needed For Migraine -- Maximum Daily Doseof 3 Per Day-[facility] M79.606 M54.5 Bupropion Hydrochloride ER (XL) Take Two Tablets By Mouth F41.9 Unknown 150mg Tablets Every Day ER 24HR F33.9 Ondansetron G43.009 Unknown 4mg Tablets Dispers Benzonatate Take 1 Capsule By Mouth Unknown 100mg Capsules Three Times Daily as Needed For Cough Immunizations Description No Information Available Vital Signs Date Vital Result Comment 01/06/2019 11:20am BP Systolic 118 mmHg BP Diastolic 70 mmHg Height 70 inches 5'10" Weight 136.00 lb BMI (Body Mass Index) 19.5 kg/m2 Heart Rate 77 /min Respiratory Rate 16 /min 12/12/2018 8:50am BP Systolic 116 mmHg BP Diastolic 66 mmHg Height 70 inches 5'10" Weight 136.00 lb BMI (Body Mass Index) 19.5 kg/m2 Heart Rate 83 /min Respiratory Rate 18 /min Results Test Date Facility Test Result H/L Range Note CBC With Diff 11/28/2018 [facility] WBC 6.8 10*3/uL (4.1-11.0) [address] (607)- - RBC 4.45 10*6/uL (4.00-5.40) HGB 13.6 g/dL (12.0-16.0) HCT 41.7 % (36.0-47.0) MCV 93.8 fL (80.0-95.0) MCH 30.6 pg (27.0-32.0) MCHC 32.6 g/dL (32.0-36.0) RDW 13.3 % (10.5-14.5) PLT 275 10*3/uL (150-450) MPV 8.3 fL (7.1-10.7) Neut % 40.9 % (35.0-75.0) Lymph % 49.6 % (16.0-52.0) [place] % 5.9 % (0.0-8.0) Eos % 3.0 % (0.0-5.0) Baso % 0.6 % (0.0-4.0) Neut # 2.8 10*3/uL (1.8-7.7) Lymph # 3.4 10*3/uL (1.2-4.8) [place] # 0.4 10*3/uL (0.0-0.8) Eos # 0.2 10*3/uL (0.0-0.5) Baso # 0.0 10*3/uL (0.0-0.2) CMP 11/28/2018 [facility] Sodium 143 mmol/L (136-145) [address] (607)- - Potassium 4.4 mmol/L (3.6-5.2) Chloride 107 mmol/L (100-108) Co2 31 mmol/L (22-31) Anion Gap 5 mmol/L Low (7-16) Urea Nitrogen 15 mg/dL (7-24) Creatinine 0.66 mg/dL (0.60-1.00) BUN/Creat Ratio 22.7 RATIO High (10.0-20.0) Glucose 84 mg/dL (70-99) Calcium 9.1 mg/dL (8.4-10.2) Total Protein 6.6 g/dL (6.4-8.2) Albumin 3.9 g/dL (3.5-4.6) Globulin 2.7 g/dL (2.7-4.3) Alb/Glob Ratio 1.4 RATIO Alkaline Phosphatase 42 U/L Low (45-117) Bilirubin,Total 0.3 mg/dL (0.0-1.0) Ast (Sgot) 15 U/L (11-39) Alt (SGPT) 23 U/L (12-78) GFR >60 ml/min/1.73m2 (>59) GFR ( Amer) >60 ml/min/1.73m2 (>59) GFR Interpretation <SEE NOTE> 1 Laboratory 11/28/2018 [facility] TSH,Ultrasensitive @ 2.900 (0.360- 4.170) test finding [address] mIU/L (607)- - CRP, Sensitive @ <0.2 mg/L 2 Lipid 11/28/2018 [facility] Cholesterol @ 184 mg/dL (0-200) [address] (607)- - Triglyceride @ 77 mg/dL (30-200) HDL Cholesterol @ 80 mg/dL (>40) 3 Chol/HDL Ratio 2.3 RATIO 4 LDL Chol (Calc) 89 mg/dL (<130) 5 Laboratory test 11/28/2018 [facility] 25 Hydroxy Vit 19 ng/mL Low (31- 100) 6 finding [address] D @ (607)- - 1 NORMAL KIDNEY FUNCTION OR MILD DISEASE - GFR >OR= 60 CHRONIC KIDNEY DISEASE - GFR 15 - 59 RENAL FAILURE - GFR <15 Est. GFR calculation based on the MDRD study equation, which assumes a steady state for creatinine. Est. GFR should not be used for medication dosing. 2 RELATIVE RISK CATEGORY AND AVERAGE hs-CRP LEVEL: LOW RISK < 1.0 MG/L AVERAGE RISK 1.0 to 3.0 MG/L HIGH RISK > 3.0 MG/L 3 PER NCEP ATP III GUIDELINES: RESULTS LOWER THAN 40 MG/DL ARE SUGGESTIVE OF INCREASED RISK FOR CORONARY ARTERY DISEASE. RESULTS > OR = TO 60 MG/DL ARE CONSIDERED A NEGATIVE RISK FACTOR. 4 INTERPRETATION OF CHOL-HDL RATIO CHD RISK FEMALE MALE VERY HIGH >8.3 >14.3 HIGH 5.6- 8.3 6.7- 14.3 AVERAGE 3.7- 5.6 4.0- 6.7 BELOW AVERAGE 2.5- 3.7 2.7- 4.0 PROTECTED <2.5 <2.7 5 PER NCEP ATP III GUIDELINES: OPTIMAL < 100 NEAR OPTIMAL 100 - 129 BORDERLINE HIGH 130 - 159 HIGH 160 - 189 VERY HIGH > 189 6 A REVIEW OF THE LITERATURE SUGGESTS THE FOLLOWING RANGES FOR THE CLASSIFICATION OF 25-OH VITAMIN D STATUS: VITAMIN D STATUS 25-OH VITAMIN D DEFICIENCY <20 NG/ML INSUFFICIENCY 20-30 NG/ML SUFFICIENCY 31 - 100 NG/ML TOXICITY > 100 NG/ML A PEDIATRIC REFERENCE RANGE HAS NOT BEEN ESTABLISHED USING THIS METHOD. Procedures Date Code Description Status 11/28/2018 34095 EKG Completed 11/12/2018 63349 Visual Screening Test Completed 11/12/2018 05340 Audiometry, Bekesy, Screening Completed Medical Devices Description No Information Available Encounters Type Date Location Provider Dx Diagnosis Office Visit 12/12/2018 [facility] Nick Ocampo L20.9 Atopic dermatitis, 8:45a M.DJeanie unspecified J30.9 Allergic rhinitis, unspecified J45.909 Unspecified asthma, uncomplicated M54.5 Low back pain M25.559 Pain in unspecified hip M79.606 Pain in leg, unspecified M24.459 Recurrent dislocation, unspecified hip F41.9 Anxiety disorder, unspecified F33.9 Major depressive disorder, recurrent, unspecified G47.00 Insomnia, unspecified E55.9 Vitamin D deficiency, unspecified H52.13 Myopia, bilateral G43.009 Migraine w/o aura, not intractable, w/o status migrainosus R00.2 Palpitations R00.0 Tachycardia, unspecified R11.0 Nausea A09 Infectious gastroenteritis and colitis, unspecified Office Visit 12/05/2018 2:00p [facility] Nick Ocampo L20.9 Atopic dermatitisJacob M.D. unspecified J30.9 Allergic rhinitis, unspecified J45.909 Unspecified asthma, uncomplicated M54.5 Low back pain M25.559 Pain in unspecified hip M79.606 Pain in leg, unspecified M24.459 Recurrent dislocation, unspecified hip F41.9 Anxiety disorder, unspecified F33.9 Major depressive disorder, recurrent, unspecified G47.00 Insomnia, unspecified E55.9 Vitamin D deficiency, unspecified H52.13 Myopia, bilateral G43.009 Migraine w/o aura, not intractable, w/o status migrainosus R00.2 Palpitations R00.0 Tachycardia, unspecified R11.0 Nausea A09 Infectious gastroenteritis and colitis, unspecified Office Visit 11/28/2018 9:15a [place] [facility] Nick Ocampo L20.9 Jacob Jeffries M.D. unspecified J30.9 Allergic rhinitis, unspecified J45.909 Unspecified asthma, uncomplicated M54.5 Low back pain M25.559 Pain in unspecified hip M79.606 Pain in leg, unspecified M24.459 Recurrent dislocation, unspecified hip F41.9 Anxiety disorder, unspecified F33.9 Major depressive disorder, recurrent, unspecified G47.00 Insomnia, unspecified E55.9 Vitamin D deficiency, unspecified H52.13 Myopia, bilateral G43.009 Migraine w/o aura, not intractable, w/o status migrainosus R00.2 Palpitations R00.0 Tachycardia, unspecified R11.0 Nausea Office Visit 11/12/2018 2:45p [place] [facility] Nick Ocampo Z00.01 Encounter for [facility] general adult medical exam w abnormal findings L20.9 Atopic dermatitis, unspecified J30.9 Allergic rhinitis, unspecified J45.909 Unspecified asthma, uncomplicated M54.5 Low back pain M25.559 Pain in unspecified hip M79.606 Pain in leg, unspecified M24.459 Recurrent dislocation, unspecified hip F41.9 Anxiety disorder, unspecified F33.9 Major depressive disorder, recurrent, unspecified G47.00 Insomnia, unspecified E55.9 Vitamin D deficiency, unspecified H52.13 Myopia, bilateral G43.009 Migraine w/o aura, not intractable, w/o status migrainosus R00.2 Palpitations R00.0 Tachycardia, unspecified Assessments Date Code Description Provider 01/06/2019 L20.9 Atopic dermatitis, unspecified Nick Ocampo M.D. 01/06/2019 J30.9 Allergic rhinitis, unspecified Nick Ocampo M.D. 01/06/2019 J45.909 Unspecified asthma, uncomplicated Nick Ocampo M.D. 01/06/2019 M54.5 Low back pain TerrenceNick M.D. 01/06/2019 M25.559 Pain in unspecified hip Nick Ocampo M.D. 01/06/2019 M79.606 Pain in leg, unspecified Nick Ocampo M.D. 01/06/2019 M24.459 Recurrent dislocation, unspecified hip Nick Ocampo M.D. 01/06/2019 F41.9 Anxiety disorder, unspecified Nick Ocampo M.D. 01/06/2019 F33.9 Major depressive disorder, recurrent, Nick Ocampo M.D. unspecified 01/06/2019 G47.00 Insomnia, unspecified Nick Ocampo M.D. 01/06/2019 E55.9 Vitamin D deficiency, unspecified Nick Ocampo M.D. 01/06/2019 H52.13 Myopia, bilateral TerrenceNick prakash M.D. 01/06/2019 G43.009 Migraine without aura, not intractable, Nick Ocampo M.D. without status migra 01/06/2019 R00.2 Palpitations Nick Ocampo M.D. 01/06/2019 R00.0 Tachycardia, unspecified Nick Ocampo M.D. 01/06/2019 R11.0 Nausea Nick Ocampo M.D. 01/06/2019 A09 Infectious gastroenteritis and colitis, Nick Ocampo M.D. unspecified 12/12/2018 L20.9 Atopic dermatitis, unspecified Nick Ocampo M.D. 12/12/2018 J30.9 Allergic rhinitis, unspecified Nick Ocampo M.D. 12/12/2018 J45.909 Unspecified asthma, uncomplicated Nick Ocampo M.D. 12/12/2018 M54.5 Low back pain Nick Ocampo M.D. 12/12/2018 M25.559 Pain in unspecified hip Nick Ocampo M.D. 12/12/2018 M79.606 Pain in leg, unspecified Nick Ocampo M.D. 12/12/2018 M24.459 Recurrent dislocation, unspecified hip Nick Ocampo M.D. 12/12/2018 F41.9 Anxiety disorder, unspecified Nick Ocampo M.D. 12/12/2018 F33.9 Major depressive disorder, recurrent, Nick Ocampo M.D. unspecified 12/12/2018 G47.00 Insomnia, unspecified Nick Ocampo M.D. 12/12/2018 E55.9 Vitamin D deficiency, unspecified Nick Ocampo M.D. 12/12/2018 H52.13 Myopia, bilateral TerrenceNick prakash M.D. 12/12/2018 G43.009 Migraine without aura, not intractable, Nick Ocampo M.D. without status migra 12/12/2018 R00.2 Palpitations Nick Ocampo M.D. 12/12/2018 R00.0 Tachycardia, unspecified Nick Ocampo M.D. 12/12/2018 R11.0 Nausea Nick Ocampo M.D. 12/12/2018 A09 Infectious gastroenteritis and colitis, Nick Ocampo M.D. unspecified 12/05/2018 L20.9 Atopic dermatitis, unspecified Nick Ocampo M.D. 12/05/2018 J30.9 Allergic rhinitis, unspecified Nick Ocampo M.D. 12/05/2018 J45.909 Unspecified asthma, uncomplicated Nick Ocampo M.D. 12/05/2018 M54.5 Low back pain Nick Ocampo M.D. 12/05/2018 M25.559 Pain in unspecified hip Nick Ocampo M.D. 12/05/2018 M79.606 Pain in leg, unspecified Nick Ocampo M.D. 12/05/2018 M24.459 Recurrent dislocation, unspecified hip Nick Ocampo M.D. 12/05/2018 F41.9 Anxiety disorder, unspecified Nick Ocampo M.D. 12/05/2018 F33.9 Major depressive disorder, recurrent, Nick Ocampo M.D. unspecified 12/05/2018 G47.00 Insomnia, unspecified Nick Ocampo M.D. 12/05/2018 E55.9 Vitamin D deficiency, unspecified Nick Ocampo M.D. 12/05/2018 H52.13 Myopia, bilateral Nick Ocampo M.D. 12/05/2018 G43.009 Migraine without aura, not intractable, Nick Ocampo M.D. without status migra 12/05/2018 R00.2 Palpitations Nick Ocampo M.D. 12/05/2018 R00.0 Tachycardia, unspecified Nick Ocampo M.D. 12/05/2018 R11.0 Nausea Nick Ocampo M.D. 12/05/2018 A09 Infectious gastroenteritis and colitis, Nick Ocampo M.D. unspecified 11/28/2018 L20.9 Atopic dermatitis, unspecified Nick Ocampo M.D. 11/28/2018 J30.9 Allergic rhinitis, unspecified Nick Ocampo M.D. 11/28/2018 J45.909 Unspecified asthma, uncomplicated Nick Ocampo M.D. 11/28/2018 M54.5 Low back pain Nick Ocampo M.D. 11/28/2018 M25.559 Pain in unspecified hip Nick Ocampo M.D. 11/28/2018 M79.606 Pain in leg, unspecified TerrenceNick barnett M.D. 11/28/2018 M24.459 Recurrent dislocation, unspecified hip Nick Ocampo M.D. 11/28/2018 F41.9 Anxiety disorder, unspecified Nick Ocampo M.D. 11/28/2018 F33.9 Major depressive disorder, recurrent, TerrenceNick M.D. unspecified 11/28/2018 G47.00 Insomnia, unspecified Nick Ocampo M.D. 11/28/2018 E55.9 Vitamin D deficiency, unspecified Nick Ocampo M.D. 11/28/2018 H52.13 Myopia, bilateral TerrenceNick barnett M.D. 11/28/2018 G43.009 Migraine without aura, not intractable, Nick Ocampo M.D. without status migra 11/28/2018 R00.2 Palpitations Nick Ocampo M.D. 11/28/2018 R00.0 Tachycardia, unspecified Nick Ocampo M.D. 11/28/2018 R11.0 Nausea Nick Ocampo M.D. 11/19/2018 L20.9 Atopic dermatitis, unspecified Nick Ocampo M.D. 11/19/2018 J30.9 Allergic rhinitis, unspecified TerrenceNick prakash M.D. 11/19/2018 J45.909 Unspecified asthma, uncomplicated TerrneceNick prakash M.D. 11/19/2018 M54.5 Low back pain Nick Ocampo M.D. 11/19/2018 M25.559 Pain in unspecified hip Nick Ocampo M.D. 11/19/2018 M79.606 Pain in leg, unspecified Nick Ocampo M.D. 11/19/2018 M24.459 Recurrent dislocation, unspecified hip Nick Ocampo M.D. 11/19/2018 F41.9 Anxiety disorder, unspecified Nick Ocampo M.D. 11/19/2018 F33.9 Major depressive disorder, recurrent, Nick Ocampo M.D. unspecified 11/19/2018 G47.00 Insomnia, unspecified Nick Ocampo M.D. 11/19/2018 E55.9 Vitamin D deficiency, unspecified Nick Ocampo M.D. 11/19/2018 H52.13 Myopia, bilateral Nick Ocampo M.D. 11/19/2018 G43.009 Migraine without aura, not intractable, Nick Ocampo M.D. without status migra 11/19/2018 R00.2 Palpitations Nick Ocampo M.D. 11/19/2018 R00.0 Tachycardia, unspecified Nick Ocampo M.D. 11/12/2018 Z00.01 Encounter for general adult medical Nick Ocampo M.D. examination with abnorma 11/12/2018 L20.9 Atopic dermatitis, unspecified Nick Ocampo M.D. 11/12/2018 J30.9 Allergic rhinitis, unspecified Nick Ocampo M.D. 11/12/2018 J45.909 Unspecified asthma, uncomplicated Nick Ocampo M.D. 11/12/2018 M54.5 Low back pain Nick Ocmapo M.D. 11/12/2018 M25.559 Pain in unspecified hip Nick Ocampo M.D. 11/12/2018 M79.606 Pain in leg, unspecified Nick Ocampo M.D. 11/12/2018 M24.459 Recurrent dislocation, unspecified hip Nick Ocampo M.D. 11/12/2018 F41.9 Anxiety disorder, unspecified Nick Ocampo M.D. 11/12/2018 F33.9 Major depressive disorder, recurrent, Nick Ocampo M.D. unspecified 11/12/2018 G47.00 Insomnia, unspecified Nick Ocampo M.D. 11/12/2018 E55.9 Vitamin D deficiency, unspecified Nick Ocampo M.D. 11/12/2018 H52.13 Myopia, bilateral Nick Ocampo M.D. 11/12/2018 G43.009 Migraine without aura, not intractable, Nick Ocampo M.D. without status migra 11/12/2018 R00.2 Palpitations Nick Ocampo M.D. 11/12/2018 R00.0 Tachycardia, unspecified Nick Ocampo M.D. Plan of Treatment 01/06/2019 - Nick Ocampo M.D.L20.9 Atopic dermatitis, unspecifiedComments: SKIN CARE INSTRUCTIONS EUCERIN CREAM OR BABY OIL 2-3 APPLICATION PER DAYUSE MOISTURIZING SOAPAVOID PROLONGED WATER EXPOSUREAVOID USING HOT WATER IN WDNKNMV43.9 Allergic rhinitis, unspecifiedComments:INCREASE PO FLUID USE ANTIHISTAMINE PRN SECOND HAND SMOKING KRRKSLIUQM11.909 Unspecified asthma, uncomplicatedComments:MDI / NEBULIZER TX PRN AVOID EXPOSURE TO SMOKING OR FGCCOC21.5 Low back painComments:EXERCISE/HEAT /MESSAGEAVOID HEAVY LIFTING WT LOSSTYLENOL OR MOTRIN PRN DUR JHXYFHCN76.559 Pain in unspecified hipComments: EXERCISE/HEAT/MESSAGETYLENOL OR MOTRIN PRNAVOID HEAVY LIFTINGWT LOSSDUR TKVLIOEX80.606 Pain in leg, unspecifiedComments:TYLENOL OR MOTRIN PRN EXERCISE/ HEAT/MESSAGE DUR YXINWOOF52.459 Recurrent dislocation, unspecified hipComments: TYLENOL OR MOTRIN PRN EXERCISE/HEAT/MESSAGE DUR KMTVCWDJ66.9 Anxiety disorder, unspecifiedComments:COUNCELLING AND REASSURANCE RELAXATION TECHNIQUESSTRESSORS IN LIFE AVOID ALL ENERGY/HIGH CAFFEINE DRINKS DUR PEOCRIIU45.9 Major depressive disorder, recurrent, unspecifiedComments:COUNCELLING AND REASSURANCE RELAXATION TECHNIQUESSTRESSORS IN LIFE AVOID ALL ENERGY/HIGH CAFFEINE FQOZMYQ33.00 Insomnia, unspecifiedComments:COUNCELLING AND REASSURANCE RELAXATION TECHNIQUESSTRESSORS IN LIFE AVOID ALL ENERGY/HIGH CAFFEINE DRINKS DUR SPPEAPWW60.9 Vitamin D deficiency, unspecifiedComments:INCREASE EXPOSURE TO SUNREVIEW OF DIETH52.13 Myopia, bilateralComments:USE GLASSES/ CONTACTSF/U WITH AMKASIXXCTDCBN59.009 Migraine without aura, not intractable, without status migraComments:TYLENOL OR MOTRIN PRNRELAXATION/AVOID ONXQLUFVLE01.2 PalpitationsComments:CONTINUE PRESCRIBED MEDICATIONS [id number] Tachycardia, unspecifiedComments:CONINUE WITH RX RTC FOR F/UCOUNCELLING ON RELAXING IKICIATVZ83.0 [id number] Infectious gastroenteritis and colitis, unspecified Functional Status Description No Information Available Mental Status Description No Information Available Referrals Description No Information Available
--- OUTSIDE RECORDS SUMMARY | 2019-02-16 11:05 | XMS REPORT | Continuity of Care Document ---
:1985 External Reference #:[id number] Author Name Ady Ko M.D. Address [address] [place] [address] Care Team Providers Name Role Phone Gladys Ocampo M.D. 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 [phone] Problems Description No Information Available Social History Type Date Description Comments Sex Unknown Cigarette Use Former Cigarette Smoker X12 years, quit with 1-5 Cigarettes Daily ETOH Use Does Not Drink Alcohol ETOH Use Occasionally consumes alcohol Tobacco Use Start: Unknown Patient is a former End: Unknown smoker Recreational Drug Use Does Not Use Drugs Smoking Status Reviewed: 08/10/17 Patient is a former smoker Exercise Type/Frequency Does not exercise Seat Belt/Car Seat Always uses seat belt Allergies, Adverse Reactions, Alerts Active Allergies Reaction Severity Comments Date Nickel 09/16/2014 Perfume 08/10/2017 Dye 08/10/2017 Bleach 08/10/2017 Medications Active Medications SIG Qnty Indications Ordering Date Provider Carin Kimball take 1 tab by mouth 30tabs Z30.09 Elsy Jaime, 2017 1mg-10 daily as instructed mcg / 10 mcg Tablets on package. Cymbalta Bedtime Unknown 07/10/[address] Carrasquillo Cymbalta Bedtime Unknown 07/10/[address] [place] Neurontin Bedtime Unknown 07/10/2017 300mg Capsules [place] Bedtime Unknown 07/10/2017 7.5-325mg Tablets Maxalt Every Day Unknown 07/10/2017 10mg Tablets Zonisamide Bedtime Unknown 07/10/2017 50mg Capsules Flexeril Three Times Daily Unknown 07/10/2017 Repack 10mg Tablets Ventolin HFA Q4H Unknown 07/10/2017 108(90Base) mcg/Act Aerosol Xanax Every Day Unknown 10/18/2015 0.25mg Tablets Gabapentin Unknown Medications Administered in Office Medication SIG Qnty Indications Ordering Provider Date PT SCRN Tbco Id as Non User Ady Ko M.D. 02/03/2019 Injection PT SCRN Tbco Id as Non User Elsy Jaime MD 08/10/2017 Injection Immunizations Description No Information Available Vital Signs Date Vital Result Comment 08/10/2017 2:36pm BP Systolic 120 mmHg BP Diastolic 80 mmHg Height 70 inches 5'10" Weight 122.00 lb BMI (Body Mass Index) 17.5 kg/m2 1 Parity 1 07/10/2017 12:00am BP Systolic 108 mmHg BP Diastolic 80 mmHg Body Temperature 98.3 F Heart Rate 93 /min Respiratory Rate 16 /min Height 70 inches Weight 125.00 lb BMI (Body Mass Index) 17.9 kg/m2 Results Description No Information Available Procedures Date Code Description Status 02/03/2019 41047 Echography Transvaginal Completed Medical Devices Description No Information Available Encounters Type Date Location Provider Dx Diagnosis Office Visit 02/03/2019 [facility] Ady Ko, R10.2 Pelvic and perineal 2:40p M.DJeanie pain Assessments Date Code Description Provider 02/03/2019 R10.2 Pelvic and perineal pain Ady Ko M.D. Plan of Treatment Future Appointment(s):02/26/2019 10:00 am - Deyanira Shore CNM at [facility] 9:30 am - Ultrasounds at [facility]02/03/2019 - Ady Ko M.D.R10.2 Pelvic and perineal painComments:no evidence for cause of her pain. some obviopus pelvic congestion on sonogram. follow up in 2 weeksat jennyfer scheduled appt. call if symptoms worsen or others develop Functional Status Description No Information Available Mental Status Description No Information Available Referrals Description No Information Available
--- OUTSIDE RECORDS SUMMARY | 2019-02-16 11:05 | XMS REPORT | Continuity of Care Document ---
:1985 External Reference #:[id number] Author Name Nick Ocampo M.D. 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 Tablets Womens Daily 1 by mouth every 90tabs [...] twice a day as M.D. needed F41.9 Bupropion Hydrochloride ER (XL) Take Two Tablets By Mouth F41.9 Unknown 150mg Tablets Every Day ER 24HR F33.9 Ondansetron G43.009 Unknown 4mg Tablets Dispers Benzonatate Take 1 Capsule By Mouth Unknown 100mg Capsules Three Times Daily as Needed For Cough Vitamins Take One Tablet By Mouth Z33.1 Unknown 28-0.8mg Tablets Every Day Immunizations Description No Information Available Vital Signs Date Vital Result Comment 02/11/2019 10:43am BP Systolic 122 mmHg BP Diastolic 60 mmHg Height 70 inches 5'10" Weight 137.00 lb BMI (Body Mass Index) 19.7 kg/m2 Heart Rate 67 /min Respiratory Rate 16 /min 01/06/2019 11:20am BP Systolic 118 mmHg BP Diastolic 70 mmHg Height 70 inches 5'10" Weight 136.00 lb BMI (Body Mass Index) 19.5 kg/m2 Heart Rate 77 /min Respiratory Rate 16 /min Results Test Date Facility Test Result H/L Range Note CBC With Diff 11/28/2018 [facility] WBC 6.8 10*3/uL (4.1-11.0) [address] (607)- - RBC 4.45 10*6/uL (4.00-5.40) HGB 13.6 g/dL (12.0-16.0) HCT 41.7 % (36.0-47.0) MCV 93.8 fL (80.0-95.0) MCH 30.6 pg (27.0-32.0) MCHC 32.6 g/dL (32.0-36.0) RDW 13.3 % (10.5-14.5) PLT 275 10*3/uL (150-450) MPV 8.3 fL (7.1-10.7) Neut % 40.9 % (35.0-75.0) Lymph % 49.6 % (16.0-52.0) [place] % 5.9 % (0.0-8.0) Eos % 3.0 % (0.0-5.0) Baso % 0.6 % (0.0-4.0) Neut # 2.8 10*3/uL (1.8-7.7) Lymph # 3.4 10*3/uL (1.2-4.8) [place] # 0.4 10*3/uL (0.0-0.8) Eos # 0.2 10*3/uL (0.0-0.5) Baso # 0.0 10*3/uL (0.0-0.2) CMP 11/28/2018 [facility] Sodium 143 mmol/L (136-145) [address] (607)- - Potassium 4.4 mmol/L (3.6-5.2) Chloride [...] Interpretation <SEE NOTE> 1 Laboratory 11/28/2018 [facility] TSH,Ultrasensitive @ 2.900 (0.360- 4.170) test finding [address] mIU/L (607)- - CRP, Sensitive @ <0.2 mg/L 2 Lipid 11/28/2018 [facility] Cholesterol @ 184 mg/dL (0-200) Ayanna MATTHEWS (607)- - Triglyceride @ 77 mg/dL (30-200) HDL Cholesterol @ 80 mg/dL (>40) 3 Chol/HDL Ratio 2.3 RATIO 4 LDL Chol (Calc) 89 mg/dL (<130) 5 Laboratory test 11/28/2018 [facility] 25 Hydroxy Vit 19 ng/mL Low (31- 100) 6 finding Ayanna Payton @ (607)- - 1 NORMAL KIDNEY FUNCTION [...] THIS METHOD. Procedures Date Code Description Status 02/11/2019 57514 Spirometry Completed 02/11/2019 29665 Tympanometry Completed 11/28/2018 11190 EKG Completed 11/12/2018 36362 Visual Screening Test Completed 11/12/2018 89450 Audiometry, Bekesy, Screening Completed Medical Devices Description No Information Available Encounters Type Date Location Provider Dx Diagnosis Office Visit 02/11/2019 [facility] Nick Ocampo L20.9 Atopic dermatitis, 11:00a Giovany unspecified J30.9 Allergic rhinitis, unspecified J45.909 Unspecified [...] R00.2 Palpitations R00.0 Tachycardia, unspecified R11.0 Nausea J00 Acute nasopharyngitis [common cold] R09.81 Nasal congestion R05 Cough R06.02 Shortness of breath J01.40 Acute pansinusitis, unspecified H92.03 Otalgia, bilateral Z33.1 state, incidental Office Visit 01/06/2019 11:30a [facility] Terrence Catherinemacy L20.9 Atopic dermatitis, Giovany James unspecified J30.9 Allergic rhinitis, unspecified J45.909 Unspecified [...] Infectious gastroenteritis and colitis, unspecified Office Visit 12/12/2018 8:45a [facility], [facility] L20.9 Atopic dermatitisJacob M.D. unspecified J30.9 Allergic [...] and colitis, unspecified Office Visit 12/05/2018 2:00p [facility] Atopic dermatitisJacob M.D. unspecified J30.9 Allergic [...] and colitis, unspecified Office Visit 11/28/2018 9:15a [facility], [facility] L20.9 Atopic dermatitisJacob M.D. unspecified J30.9 Allergic [...] unspecified R11.0 Nausea Office Visit 11/12/2018 2:45p [facility] [place] [facility] Nick Ocampo Z00.01 Encounter for Giovany [...] Tachycardia, unspecified Assessments Date Code Description Provider 02/11/2019 L20.9 Atopic dermatitis, unspecified Nick Ocampo M.D. 02/11/2019 J30.9 Allergic rhinitis, unspecified TerrenceNick M.D. 02/11/2019 J45.909 Unspecified asthma, uncomplicated TerrenceNick M.D. 02/11/2019 M54.5 Low back pain Nick Ocampo M.D. 02/11/2019 M25.559 Pain in unspecified hip Nick Ocampo M.D. 02/11/2019 M79.606 Pain in leg, unspecified Nick Ocampo M.D. 02/11/2019 M24.459 Recurrent dislocation, unspecified hip TerrenceNick prakash M.D. 02/11/2019 F41.9 Anxiety disorder, unspecified Nick Ocampo M.D. 02/11/2019 F33.9 Major depressive disorder, recurrent, Nick Ocampo M.D. unspecified 02/11/2019 G47.00 Insomnia, unspecified Nick Ocampo M.D. 02/11/2019 E55.9 Vitamin D deficiency, unspecified Nick Ocampo M.D. 02/11/2019 H52.13 Myopia, bilateral Nick Ocampo M.D. 02/11/2019 G43.009 Migraine without aura, not intractable, Nick Ocampo M.D. without status migrainosus 02/11/2019 R00.2 Palpitations Nick Ocampo M.D. 02/11/2019 R00.0 Tachycardia, unspecified Nick Ocampo M.D. 02/11/2019 R11.0 Nausea Nick Ocampo M.D. 02/11/2019 J00 Acute nasopharyngitis [common cold] Nick Ocampo M.D. 02/11/2019 R09.81 Nasal congestion Nick Ocampo M.D. 02/11/2019 R05 Cough Nick Ocampo M.D. 02/11/2019 R06.02 Shortness of breath Nick Ocampo M.D. 02/11/2019 J01.40 Acute pansinusitis, unspecified Nick Ocampo M.D. 02/11/2019 H92.03 Otalgia, bilateral Nick Ocampo M.D. 02/11/2019 Z33.1 state, incidental Nick Ocampo M.D. 01/06/2019 L20.9 Atopic dermatitis, unspecified Nick Ocampo M.D. 01/06/2019 J30.9 Allergic rhinitis, unspecified Nick Ocampo M.D. 01/06/2019 J45.909 Unspecified asthma, uncomplicated Nick Ocampo M.D. 01/06/2019 M54.5 Low back pain Nick Ocampo M.D. 01/06/2019 M25.559 Pain in unspecified hip [...] Ocampo M.D. 12/12/2018 J30.9 Allergic rhinitis, unspecified Ncik Ocampo M.D. 12/12/2018 J45.909 Unspecified asthma, uncomplicated TerrenceNick prakash., M.D. 12/12/2018 M54.5 Low back pain Nick [...] Nick Ocampo M.D. 12/12/2018 H52.13 Myopia, bilateral Nick Ocampo M.D. 12/12/2018 G43.009 Migraine without aura, not [...] Nick Ocampo M.D. 12/05/2018 H52.13 Myopia, bilateral TerrenceNick prakash M.D. 12/05/2018 G43.009 Migraine without aura, not intractable, Nick Ocampo M.D. without status migra 12/05/2018 R00.2 Palpitations Nick Ocampo M.D. 12/05/2018 R00.0 Tachycardia, unspecified Nick Ocampo M.D. 12/05/2018 R11.0 Nausea TerrenceNick prakash M.D. 12/05/2018 A09 Infectious gastroenteritis and colitis, Nick Ocampo M.D. unspecified 11/28/2018 L20.9 Atopic dermatitis, unspecified Nick Ocampo M.D. 11/28/2018 J30.9 Allergic rhinitis, unspecified Nick Ocampo M.D. 11/28/2018 J45.909 Unspecified asthma, uncomplicated Nick Ocampo M.D. 11/28/2018 M54.5 Low back pain Nick Ocampo M.D. 11/28/2018 M25.559 Pain in unspecified hip TerrenceNick prakash M.D. 11/28/2018 M79.606 Pain in leg, unspecified TerrenceNick barnett M.D. 11/28/2018 M24.459 Recurrent dislocation, unspecified hip Nick Ocampo M.D. 11/28/2018 F41.9 Anxiety disorder, unspecified Nick Ocampo M.D. 11/28/2018 F33.9 Major depressive disorder, recurrent, TerrenceNick M.D. unspecified 11/28/2018 G47.00 Insomnia, unspecified Nick Ocampo M.D. 11/28/2018 E55.9 Vitamin D deficiency, unspecified Nick Ocampo M.D. 11/28/2018 H52.13 Myopia, bilateral TerrenceNick prakash M.D. 11/28/2018 G43.009 Migraine without aura, not intractable, Nick Ocampo M.D. without status migra 11/28/2018 R00.2 Palpitations Nick Ocampo M.D. 11/28/2018 R00.0 Tachycardia, unspecified Nick Ocampo M.D. 11/28/2018 R11.0 Nausea Nick Ocampo M.D. 11/19/2018 L20.9 Atopic dermatitis, unspecified TerrenceNick prakash M.D. 11/19/2018 J30.9 Allergic rhinitis, unspecified Nick Ocampo M.D. 11/19/2018 J45.909 Unspecified asthma, uncomplicated Nick Ocampo M.D. 11/19/2018 M54.5 Low back pain Nick Ocampo M.D. 11/19/2018 M25.559 Pain in unspecified hip Nick Ocampo M.D. 11/19/2018 M79.606 Pain in leg, unspecified TerrenceNick M.D. 11/19/2018 M24.459 Recurrent dislocation, unspecified hip [...] M.D. 11/12/2018 M54.5 Low back pain Nick Ocampo M.D. 11/12/2018 M25.559 Pain in unspecified hip [...] unspecified Nick Ocampo M.D. Plan of Treatment 02/11/2019 - Nick Ocampo M.D.L20.9 Atopic dermatitis, unspecifiedComments: SKIN CARE INSTRUCTIONS EUCERIN CREAM OR BABY OIL 2-3 APPLICATION PER DAYUSE MOISTURIZING SOAPAVOID PROLONGED WATER EXPOSUREAVOID USING HOT WATER IN QZHZZKF38.9 Allergic rhinitis, unspecifiedComments:INCREASE PO FLUID USE ANTIHISTAMINE PRN SECOND HAND SMOKING AALDOWETPJ87.909 Unspecified asthma, uncomplicatedComments:MDI / NEBULIZER TX PRN AVOID EXPOSURE TO SMOKING OR XBIVPA55.5 Low back painComments:EXERCISE/HEAT /MESSAGEAVOID HEAVY LIFTING WT LOSSTYLENOL OR MOTRIN PRN DUR HUNBRZWZ59.559 Pain in unspecified hipComments: EXERCISE/HEAT/MESSAGETYLENOL OR MOTRIN PRNAVOID HEAVY LIFTINGWT LOSSDUR RDJTGNUJ70.606 Pain in leg, unspecifiedComments:TYLENOL OR MOTRIN PRN EXERCISE/ HEAT/MESSAGE DUR LEPRKUZS96.459 Recurrent dislocation, unspecified hipComments: TYLENOL OR MOTRIN PRN EXERCISE/HEAT/MESSAGE DUR JGQXUSIP20.9 Anxiety disorder, unspecifiedComments:COUNCELLING AND REASSURANCE RELAXATION TECHNIQUESSTRESSORS IN LIFE AVOID ALL ENERGY/HIGH CAFFEINE DRINKS DUR MIUPYRAA49.9 Major depressive disorder, recurrent, unspecifiedComments:COUNCELLING AND REASSURANCE RELAXATION TECHNIQUESSTRESSORS IN LIFE AVOID ALL ENERGY/HIGH CAFFEINE QVYCUTP87.00 Insomnia, unspecifiedComments:COUNCELLING AND REASSURANCE RELAXATION TECHNIQUESSTRESSORS IN LIFE AVOID ALL ENERGY/HIGH CAFFEINE DRINKS DUR MYHUJKGR88.9 Vitamin D deficiency, unspecifiedComments:INCREASE EXPOSURE TO SUNREVIEW OF DIETH52.13 Myopia, bilateralComments:USE GLASSES/ CONTACTSF/U WITH OBZLXDSGRRMOCT50.009 Migraine without aura, not intractable, without status migrainosusComments:TYLENOL OR MOTRIN PRNRELAXATION/AVOID XWSPWPQBBJ63.2 PalpitationsComments:CONTINUE PRESCRIBED MEDICATIONS BEGNRNWRVBTGPFIT60.0 Tachycardia, unspecifiedComments:CONINUE WITH RX RTC FOR F/UCOUNCELLING ON RELAXING UJSDBRIRC38.0 NauseaComments:INCREASE PO FLUID SMALL SIPS OF FLUIDS AT A TIME SMALL FREQUENT MEALS F/U DIRECTED CALL IF YOU HAVE VOMITING OR WITH S /S OF [id number] Acute nasopharyngitis [common cold]Comments:INCREASE PO FLUIDTYLENOL OR MOTRIN PRNREST USE ANTIHISTAMINE PRNR09.81 Nasal congestionComments:INCREASE PO FLUIDTYLENOL OR MOTRIN PRNREST USE ANTIHISTAMINE PRNR05 CoughComments:INCREASE CLEAR LIQUIDSSTEAMGARGLE WARM SALT H2O TID ROBITUSSIN DM PRNR06.02 Shortness of breathComments:INCREASE PO SMMOUXVXYZ04.40 Acute pansinusitis, unspecifiedNew Medication:Amoxicillin 500 mg - 1 by mouth three times a dayComments:INCREASE PO FLUIDTYLENOL OR MOTRIN PRN ANTIHISTAMINE PRNH92.03 Otalgia, bilateralComments:INCREASE PO FLUIDTYLENOL OR MOTRIN PRNANTIHISTAMINE MXQZHNWW80.1 state, incidentalComments:F/U WITH OB/ TUBE MOUNTER MVI PER OBREVIEWED COMMON MEDICATION RESTRICTIONS DURING Functional Status Description No Information Available Mental Status Description No Information Available Referrals Description No Information Available
[2019-02-16 12:41] LABS: Urine Appearance Cloudy; Urine Bacteria Absent (Absent); Urine Bilirubin Negative (Negative); Urine Blood Negative (Negative); Urine Color Yellow; Urine Glucose Negative (Negative); Urine Ketones Negative (Negative); Urine Nitrite Negative (Negative); Urine Protein Negative (Negative); Urine Red Blood Cell 2+(6-10/hpf) (Absent); Urine Specific Gravity 1.015 (1.010-1.030); Urine Squamous Epithelial Cell Present (Absent); Urine Urobilinogen Negative (Negative); Urine White Blood Cell Trace(0-5/hpf) (Absent)
[2019-02-16] MEDS ORDERED: NS 0.9% 1000 ML** 1,000 ML IV ONE (13:14)
--- NOTE | 2019-02-16 13:14 | ED ---
- HPI Summary HPI Summary: The patient is a 33 y/o F presenting to [facility] with a chief complaint of diffuse abdominal cramping and stabbing pain worsening in the last two weeks. She reports that she is currently 8 weeks and has developed worsening cramping without any vaginal bleeding or discharge. She additionally c/o nausea and migraines although they are chronic. Currently, her symptoms are rated 7/10 in severity. She has taken Zofran and Ibuprofen as treatment prior to arrival without much relief. She notes that she has cleared this with her PCP. She has also seen an OB about a week and a half ago, who told her she has enlarged blood vessels. She is scheduled for another OB appointment on 02/26/19 with Deyanira Shore, revenue integrity analyst. A1. PMHx: anemia, angina, asthma, migraine, anxiety , depression. Former smoker, no EtOH, no substance use. Medications reviewed. Allergies noted. - History of Current Complaint Chief Complaint: EDOBProblems Stated Complaint: 8 WEEKS PREG LOWER ABD PAIN Time Seen by Provider: 02/16/19 13:09 Hx Obtained From: Patient Chief Complaint: Pain - abdominal crmaping Onset/Duration: Started Days Ago, Still Present Timing: Constant, Lasting Days Severity: Mild Current Severity: Moderate Pain Intensity: 7 Location of Pain: Diffuse Character: Cramping, Sharp Aggravating Factors: Nothing Alleviating Factors: Nothing Associated Signs and Symptoms: Positive: Nausea, Other: - migraines. Negative: Vaginal Bleeding or Discharge - Assessment Hx Now: No SAB: 0 IEA: 0 Hx Hysterectomy: No - Additional Pertinent History Primary Care Physician: [id number] Maternal Blood Type and Rh: A Positive - Allergies/Home Medications Allergies/Adverse Reactions: Allergies Allergy/AdvReac Type Severity Reaction Status Date / Time nickel Allergy Severe Rash Verified 02/16/19 13:18 zonisamide Allergy See Comment Verified 02/16/19 13:18 Home Medications: Home Medications Amoxicillin 500 mg PO BID 02/16/19 [History Confirmed 02/16/19] Oxycodone HCl/Acetaminophen [Percocet 7.5-325 mg Tablet] 1 tab PO Q6HR 02/16/19 [History Confirmed 02/16/19] Pnv No.95/Ferrous Fum/Folic AC [ Caplet] 1 tab PO DAILY 02/16/19 [ History Confirmed 02/16/19] PMH/Surg Hx/FS Hx/Imm Hx Endocrine/Hematology History: Reports: Hx Anemia - took Fe in past -not currently Denies: Hx Anticoagulant Therapy, Hx Blood Disorders, Hx Diabetes, Hx Thyroid Disease, Hx Unexplained Bleeding Cardiovascular History: Reports: Hx Angina Denies: Hx Aneurysm, Hx Congenital Heart Disease, Hx Coronary Artery Disease , Hx Hypercholesterolemia, Hx Hypertension, Hx Myocardial Infarction, Hx Pacemaker/ICD, Hx Valvular Heart Disease Respiratory History: Reports: Hx Asthma Denies: Hx Chronic Obstructive Pulmonary Disease (COPD), Hx Pneumonia, Hx Pulmonary Embolism, Hx Sleep Apnea GI History: Denies: Hx Gall Bladder Disease, Hx Gastroesophageal Reflux Disease, Hx Gastrointestinal Bleed, Hx Irritable Bowel, Hx Obstructive Bowel, Hx Ulcer History: Denies: Hx Dialysis, Hx Kidney Infection, Hx Kidney Stones, Hx Renal Disease Musculoskeletal History: Reports: Other Musculoskeletal History - chronic hip pain - takes flexeril Sensory History: Reports: Hx Contacts or Glasses Denies: Hx Hearing Aid Opthamlomology History: Reports: Hx Contacts or Glasses Neurological History: Reports: Hx Migraine, Other Neuro Impairments/Disorders - RLS - takes gabapentin Psychiatric History: Reports: Hx Anxiety, Hx Depression, Hx Panic Disorder - Surgical History Surgical History: None Surgery Procedure, Year, and Place: None Infectious Disease History: No Infectious Disease History: Denies: Hx Clostridium Difficile, Hx Hepatitis, Hx Human Immunodeficiency Virus (HIV), Hx of Known/Suspected MRSA, Hx Shingles, Hx Tuberculosis, Hx Known/ Suspected VRE, Hx Known/Suspected VRSA, History Other Infectious Disease, Traveled Outside the [place] in Last 30 Days - Family History Known Family History: Positive: Cardiac Disease Negative: Hypertension - Social History Alcohol Use: None Hx Substance Use: Yes Substance Use Type: Reports: None Substance Use Comment - Amount & Last Used: OCCASIONALLY for insomnia Hx Tobacco Use: Yes - quit 4 years ago Smoking Status (MU): Former Smoker Type: Cigarettes Amount Used/How Often: september 15, 2014 Have You Smoked in the Last Year: Yes Review of Systems Positive: Abdominal Pain - cramping, stabbing, diffuse, Nausea Negative: discharge, other - vaginal discharge Positive: Headache All Other Systems Reviewed And Are Negative: Yes Physical Exam - Summary Physical Exam Summary: VITAL SIGNS: Reviewed. GENERAL: Patient is a well-developed and nourished female who is lying comfortable in the stretcher. Patient is not in any acute respiratory distress. HEAD AND FACE: No signs of trauma. No ecchymosis, hematomas or skull depressions. No sinus tenderness. EYES: PERRLA, EOMI x 2, No injected conjunctiva, no nystagmus. EARS: Hearing grossly intact. Ear canals and tympanic membranes are within normal limits. MOUTH: Oropharynx within normal limits. NECK: Supple, trachea is midline, no adenopathy, no JVD, no carotid bruit, no c- spine tenderness, neck with full ROM. CHEST: Symmetric, no tenderness at palpation. LUNGS: Clear to auscultation bilaterally. No wheezing or crackles. CVS: Regular rate and rhythm, S1 and S2 present, no murmurs or gallops appreciated. ABDOMEN: Soft, non-tender. No signs of distention. No rebound, no guarding, and no masses palpated. Bowel sounds are normal. EXTREMITIES: FROM in all major joints, no edema, no cyanosis or clubbing. NEURO: Alert and oriented x 3. No acute neurological deficits. Speech is normal and follows commands. SKIN: Dry and warm. - Physical Exam Triage Information Reviewed: Yes Vital Signs Reviewed: Yes Procedures - Sedation Patient Received Moderate/Deep Sedation with Procedure: No Diagnostics - Vital Signs Vital Signs Temp Pulse Resp BP Pulse Ox 02/16/19 10:50 98.2 F 96 16 134/88 100 - Laboratory Lab Results: Lab Results 02/16/19 Range/Units 12:30 Urine Color Yellow Urine Appearance Cloudy Urine pH 7.0 (5-9) Ur Specific [place] 1.015 (1.010-1.030) Urine Protein Negative (Negative) Urine Ketones Negative (Negative) Urine Blood Negative (Negative) Urine Nitrate Negative (Negative) Urine Bilirubin Negative (Negative) Urine Urobilinogen Negative (Negative) Ur Leukocyte Esterase Trace A (Negative) Urine WBC (Auto) Trace(0-5/hpf) (Absent) Urine RBC (Auto) 2+(6-10/hpf) A (Absent) Ur Squamous Epith Cells Present A (Absent) Amorphous Crystals Present A (Absent) Urine Bacteria Absent (Absent) Urine Glucose Negative (Negative) Urine Ascorbic Acid * A (Negative) Result Diagrams: 02/16/19 13:21 02/16/19 13:21 Lab Statement: Any lab studies that have been ordered have been reviewed, and results considered in the medical decision making process. - Ultrasound Ultrasound Ultrasound Interpretation Completed By: Radiologist Summary of Ultrasound Findings: Impression: Early intrauterine with an estimated gestational age of 8 weeks 2 days by crown-rump length. ED physician has reviewed this report. Re-Evaluation - Re-Evaluation First Eval Re-Evaluation Time: 16:00 Change: Improved Comment: Patient declined pelvic exam. We discussed plan for discharge. Course/Dx - Course Assessment/Plan: Patient is a 33 y/o F who is 8 weeks (A1) with chief complaint of worsening abominal cramping and nausea without vaginal bleeding or discharge over the last week and a half. Upcoming OB appointment in 10 days. Blood work without any significant abnormality except for AST of 11, beta hCG of 86,133. Urinalysis is contaminated therefore we will send urine cultures. ultrasound impression: Early intrauterine with an estimated gestational age of 8 weeks and 2 days by crown rump length. In the ED course, the patient was given IV fluids and recommend for nausea, also for her migraine headaches. The patient reports no vaginal bleeding or discharge, therefore she declined a pelvic exam. I discussed my physical exam findings with Dr. Jaime from [facility] and she recommends for the patient to be discharged home with f/u her OBGYN. I discussed all the findings and test results with the patient. Patient was instructed to return to the emergency room immediately if any of the symptoms return worsens. Plan of care was discussed with the patient and understands and agrees. All questions were answered at patient satisfaction. There were no further complaints or concerns. Lung exam before discharge: CTA B/L. Good air exchange. No wheezing or crackles heard. CVS: S1 and S2 present. No murmurs appreciated. Patient is alert and oriented x 3. Patient is hemodynamically stable. Patient will be discharged home with follow up PCP in the next 2-3 days. - Diagnoses Provider Diagnoses: Threatened miscarriage in early - Provider Notifications Discussed Care Of Patient With: Elsy Jaime - [facility] Time Discussed With Above Provider: 14:53 Instructed by Provider To: Other - I discussed the patient's case with Dr. Jaime, and she agrees with taking ultrasound to see if the is viable. I relayed the results of the US to Dr. Jaime. Discharge ED - Sign-Out/Discharge Documenting (check all that apply): Patient Departure - Patient will be discharged home. - Discharge Plan Condition: Stable Disposition: HOME Patient Education Materials: Threatened Miscarriage (ED) Referrals: Nick Ocampo MD [Primary Care Provider] - 3 Days Additional Instructions: Follow up at your [facility] appointment as scheduled. Return to the emergency department for any new or worsening symptoms. - Billing Disposition and Condition Condition: STABLE Disposition: Home - Attestation Statements Document Initiated by Denise: Yes Documenting Scribe: Chandrika Noguera Provider For Whom Denise is Documenting (Include Credential): Dr. Nba Rai MD Scribe Attestation: Chandrika Villasenor scribed for Dr. Nba Rai MD on 02/16/19 at 1845. Scribe Documentation Reviewed: Yes Provider Attestation: The documentation as recorded by the Chandrika packer accurately reflects the service I personally performed and the decisions made by sc, Dr. Nba Rai MD Status of Scribe Document: Viewed
[2019-02-16] MEDS ORDERED: Metoclopramide IV* 5 MG/ML 2 ML VIAL IV ONE (13:15)
[2019-02-16 13:32] LABS: ABS Basophils 0.1 10^3/ul (0-0.2); ABS Eosinophils 0.1 10^3/ul (0-0.6); ABS Lymphocytes 2.9 10^3/ul (1.0-4.8); ABS Monocytes 0.4 10^3/ul (0-0.8); ABS Neutrophils 6.1 10^3/ul (1.5-7.7); Eosinophil % 1.4 %; Hematocrit 37 % (35-47); Hemoglobin 12.7 g/dL (12.0-16.0); Lymphocyte % 30.1 %; Mean Corpuscular HGB Conc 34 g/dL (31-36); Mean Corpuscular Hemoglobin 31 pg (27-31); Mean Corpuscular Volume 91 fL (80-97); Mean Platelet Volume 7.1 fL (7.4-10.4); Nucleated Red Blood Cells % 0.1; Platelet Count 312 10^3/uL (150-450); Red Blood Count 4.09 10^6 /uL (3.70-4.87); Red Cell Distribution Width 12 % (10-15); White Blood Count 9.6 10^3/uL (3.5-10.8)
[2019-02-16 13:47] LABS: Albumin/Globulin Ratio 1.6 (1-3); BUN/Creatinine Ratio 18.5 (8-20); Calcium 9.2 mg/dL (8.6-10.3); EGFR African American 159.3 (>60); EGFR Non-African American 131.7 (>60); Globulin 2.5 g/dL (2-4); Potassium 4.4 mmol/L (3.5-5.0); Total Bilirubin 0.3 mg/dL (0.2-1.0); Total Protein 6.5 g/dL (6.4-8.9)
[2019-02-16 16:17] VITALS: BP 109/57
== END 2019-02-16 16:16 | disposition home or self-care (01) ==
LOC: ED 10:49
DX: O20.0 Threatened abortion (principal); Z3A.08 8 weeks gestation of pregnancy; R10.9 Unspecified abdominal pain; R11.0 Nausea; F41.9 Anxiety disorder, unspecified; F32.9 Major depressive disorder, single episode, unspecified; Z87.891 Personal history of nicotine dependence; Z88.0 Allergy status to penicillin; D64.9 Anemia, unspecified; I20.9 Angina pectoris, unspecified
CPT/HCPCS: 36415; 76801; 80053; 81003; 81015; 84702; 85025; 86850; 86900; 86901; 87086; 99282; J2765

== ENCOUNTER 2019-05-06 02:43 | Emergency (ER) | payer OTHER ==
[2019-05-06] MEDS ORDERED: Ondansetron INJ* 2 MG/ML VIAL IV ONE (02:52)
[2019-05-06] MEDS ORDERED: NS 0.9% 1000 ML** 1,000 ML IV ONE ×3 (02:52→08:20)
--- NOTE | 2019-05-06 03:03 | ED ---
- HPI Summary HPI Summary: Patient is a 33 y/o F who is 20 weeks presenting to [facility] with chief complaint of N/V. It is reported that N/V onset around 0030 05/06/19 when the patient went to lie down. She states that she took some Zofran when nausea first onset but subsequently vomited this medication up. Patient notes that she experiences sharp abdominal pain and a near-syncopal sensation with vomiting. ADKINS is endorsed as well, patient has Hx of migraines. On triage, pain is rated 4/ 10. Diarrhea is denied. Recent possible sick contact is noted. Home medications and allergies are reviewed. Significant other is in the room with patient. - History of Current Complaint Chief Complaint: EDAbdPain Stated Complaint: 20 WKS /FEELS LIKE PASSING OUT PER PT Hx Obtained From: Patient Onset/Duration: Started Hours Ago, Still Present Timing: Constant, Lasting Hours Pain Intensity: 4 Aggravating Factors: Nothing Alleviating Factors: Nothing Associated Signs and Symptoms: Positive: Vomiting - Assessment Hx Now: No SAB: 0 IEA: 0 Hx Hysterectomy: No - Additional Pertinent History Primary Care Physician: SANJIV Maternal Blood Type and Rh: A Positive - Allergies/Home Medications Allergies/Adverse Reactions: Allergies Allergy/AdvReac Type Severity Reaction Status Date / Time nickel Allergy Severe Rash Verified 05/06/19 02:46 zonisamide Allergy See Comment Verified 05/06/19 02:46 PMH/Surg Hx/FS Hx/Imm Hx Endocrine/Hematology History: Reports: Hx Anemia - took Fe in past -not currently Denies: Hx Anticoagulant Therapy, Hx Blood Disorders, Hx Diabetes, Hx Thyroid Disease, Hx Unexplained Bleeding Cardiovascular History: Reports: Hx Angina Denies: Hx Aneurysm, Hx Congenital Heart Disease, Hx Coronary Artery Disease , Hx Hypercholesterolemia, Hx Hypertension, Hx Myocardial Infarction, Hx Pacemaker/ICD, Hx Valvular Heart Disease Respiratory History: Reports: Hx Asthma Denies: Hx Chronic Obstructive Pulmonary Disease (COPD), Hx Pneumonia, Hx Pulmonary Embolism, Hx Sleep Apnea GI History: Denies: Hx Gall Bladder Disease, Hx Gastroesophageal Reflux Disease, Hx Gastrointestinal Bleed, Hx Irritable Bowel, Hx Obstructive Bowel, Hx Ulcer History: Denies: Hx Dialysis, Hx Kidney Infection, Hx Kidney Stones, Hx Renal Disease Musculoskeletal History: Reports: Other Musculoskeletal History - chronic hip pain - takes flexeril Sensory History: Reports: Hx Contacts or Glasses Denies: Hx Hearing Aid Opthamlomology History: Reports: Hx Contacts or Glasses Neurological History: Reports: Hx Migraine, Other Neuro Impairments/Disorders - RLS - takes gabapentin Psychiatric History: Reports: Hx Anxiety, Hx Depression, Hx Panic Disorder - Surgical History Surgery Procedure, Year, and Place: None Infectious Disease History: No Infectious Disease History: Denies: Hx Clostridium Difficile, Hx Hepatitis, Hx Human Immunodeficiency Virus (HIV), Hx of Known/Suspected MRSA, Hx Shingles, Hx Tuberculosis, Hx Known/ Suspected VRE, Hx Known/Suspected VRSA, History Other Infectious Disease, Traveled Outside the [place] in Last 30 Days - Family History Known Family History: Positive: Cardiac Disease Negative: Hypertension - Social History Alcohol Use: None Hx Substance Use: Yes Substance Use Type: Reports: None Substance Use Comment - Amount & Last Used: OCCASIONALLY for insomnia Hx Tobacco Use: Yes - quit 4 years ago Smoking Status (MU): Former Smoker Type: Cigarettes Amount Used/How Often: september 15, 2014 Have You Smoked in the Last Year: Yes Review of Systems Positive: Abdominal Pain - with vomiting, Vomiting, Nausea. Negative: Diarrhea Positive: Headache, Syncope - near syncopal with vomiting All Other Systems Reviewed And Are Negative: Yes Physical Exam - Summary Physical Exam Summary: Appearance: Well-appearing, Well-nourished, lying in bed comfortably Skin: Warm, dry, no obvious rash Eyes: sclera anicteric, no conjunctival pallor ENT: mucous membranes moist, pharynx appears normal Neck: Supple, nontender Respiratory: Clear to auscultation, no signs of respiratory distress Cardiovascular: Normal S1, S2. No murmurs. Normal distal pulses in tibial and radial bilaterally. Abdomen: Soft, nontender, normal active bowel sounds present Musculoskeletal: Normal, Strength/ROM Intact Neurological: A&Ox3, awake and alert, mentation is normal, speech is fluent and appropriate Psychiatric: affect is normal, does not appear anxious or depressed - Physical Exam Triage Information Reviewed: Yes Vital Signs Reviewed: Yes Procedures - Sedation Patient Received Moderate/Deep Sedation with Procedure: No Diagnostics - Vital Signs Vital Signs Temp Pulse Resp BP Pulse Ox 05/06/19 02:45 99.2 F 109 20 96/73 100 - Laboratory Result Diagrams: 05/06/19 05:57 05/06/19 05:57 Lab Statement: Any lab studies that have been ordered have been reviewed, and results considered in the medical decision making process. Re-Evaluation - Re-Evaluation First Eval Re-Evaluation Time: 03:40 Comment: Nausea persisted, additional medications to be administered. Second Eval Re-Evaluation Time: 06:30 Comment: Patient had some relief in Sx in Reglan. However, Sx later returned. Compazine administered. OB consult to be obtained. Course/Dx - Course Course Of Treatment: Patient is a 33 y/o F who is 20 weeks presenting to [facility] with chief complaint of N/V. It is reported that N/V onset around 0030 05/06/19 when the patient went to lie down. She states that she took some Zofran when nausea first onset but subsequently vomited this medication up. Patient notes that she experiences sharp abdominal pain and a near-syncopal sensation with vomiting. ADKINS is endorsed as well, patient has Hx of migraines. On triage, pain is rated 4/10. Diarrhea is denied. Recent possible sick contact is noted. Physical exam is unremarkable. Abdomen is soft and non-tender. During ED course, patient received fluids and Zofran 8 mg IV. Nausea persisted, Reglan 10 mg IV. Bloodwork was obtained. Abnormal values include WBC 12.2, RBC 3.66, Hgb 11.1, Hct 33, MPV 7.2, absolute neuts 11.2, absolute lymphs 0.7, sodium 134, carbon dioxide 21, creatinine 0.46, BUN/creatinine ratio 23.9, glucose 114, calcium 8.1, alk phos 33, total protein 6. Sx are continued. Patient had some relief in Sx in Reglan. However, Sx later returned. Compazine 10 mg IV administered. OB consult to be obtained. Patient is signed out to Dr. Camacho at 0700 05/06/19 shift change pending improvement of Sx and further workup as needed. - Diagnoses Provider Diagnoses: Nausea and vomiting during Discharge ED - Sign-Out/Discharge Documenting (check all that apply): Sign-Out Patient Signing out patient TO: Teresita Camacho - Discharge Plan Condition: Stable Disposition: AGAINST MEDICAL ADVICE Prescriptions: Prochlorperazine TAB* [Compazine Tab*] 10 mg PO Q8H PRN 4 Days #12 tab PRN Reason: Vomiting Pyridoxine HCl (Vitamin B6) [Vitamin B-6] 25 mg PO TID PRN 4 Days #12 tablet PRN Reason: Vomiting Patient Education Materials: Nausea and Vomiting in (ED) Referrals: Nick Ocampo MD [Primary Care Provider] - 3 Days Additional Instructions: You were seen in the emergency department for nausea and vomiting. At home you can take vitamin B6 every 8 hours as needed for vomiting. If you have persistent vomiting, you can also take Compazine every 8 hours vomiting. Please follow up with your primary care doctor in next 2-3 days and return to emergency department for worsening vomiting, inability to keep down fluids, contractions, or concerning symptoms. It was a pleasure taking care of you today. - Billing Disposition and Condition Condition: STABLE Disposition: Against Medical Advice - Attestation Statements Document Initiated by Denise: Yes Documenting Scribe: SANDRA PIKE Provider For Whom Denise is Documenting (Include Credential): LAVINIA AGUIRRE MD Scribe Attestation: SANDRA Villasenor scribed for LAVINIA AGUIRRE MD on 05/10/19 at 0638. Scribe Documentation Reviewed: Yes Provider Attestation: The documentation as recorded by the SANDRA packer accurately reflects the service I personally performed and the decisions made by LAVINIA raines MD Status of Scribe Document: Viewed
[2019-05-06] MEDS ORDERED: Metoclopramide IV* 5 MG/ML 2 ML VIAL IV SLOW PU ONE (03:24)
--- OUTSIDE RECORDS SUMMARY | 2019-05-06 03:40 | XMS REPORT | Continuity of Care Document ---
:1985 External Reference #:[id number] Author Name Brice Anglin MD (transmitted by agent of provider Nayeli Carney) Address [address], [place] [address] Care Team Providers Name Role Phone Radha Agustin MD - Pain Medicine Care Team Information Lead Software Test Engineer [phone] Marcelle Sol MD - Family Care Team Information Lead Software Test Engineer [phone] Nick Rae MD - Family Medicine Care Team Information Lead Software Test Engineer [phone] Problems Active Problems Provider Date Migraine with typical aura Brice Anglin MD Onset: 03/10/2016 Restless legs Brice Anglin MD Onset: 07/28/2016 Iliotibial band friction syndrome Milvia Grove MD Onset: 01/18/2017 Solitary sacroiliitis Milvia Grove MD Onset: 01/18/2017 Social History Type Date Description Comments Sex Unknown Tobacco Use Start: Unknown End: Former Cigarette Unknown Smoker Smoking Status Reviewed: 04/30/19 Former Cigarette Smoker ETOH Use Consumes 1 glass of not while wine per day Tobacco Use Start: Unknown End: Patient is a former Unknown smoker Recreational Drug Use Current Drug User Medical Marijuana Exercise Type/Frequency Exercises rarely Active with 2 year old Allergies, Adverse Reactions, Alerts Active Allergies Reaction Severity Comments Date Nickel rash 01/18/2017 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 1 by mouth every Unknown Tablets day Morphine Sulfate ER Take 1 Tablet By Unknown Mouth Every 12 15mg Tablets ER Hours Oxycodone-Acetaminoph Take One Tablet Unknown en By Mouth Every 6 7.5-325mg Tablets Hours as Needed - Maximum Daily Dose Of 2 Per Day Fish Oil 1 tab by mouth Unknown 1000mg twice a day with Capsules Dha Vitamin B6 2 by mouth every Unknown 50mg Tablets day Magnesium 1 by mouth twice Unknown 200mg a day Chewtabs History Medications 1 by mouth every 90tabs Navi Campbell, 03/24/2019 - Unknown 27-0.8mg day Tablets Neurontin 1 by mouth every 30caps Navi Campbell, 03/24/2019 - Unknown 300mg night at bedtime Capsules Medications Administered in Office Medication SIG Qnty Indications Ordering Provider Date Triamcinolone (Kenalog) Milvia Grove MD 01/18/2017 Injection Immunizations Description No Information Available Vital Signs Date Vital Result Comment 04/30/2019 9:58am Height 70 inches 5'10" Weight 149.38 lb Heart Rate 78 /min BP Systolic 108 mmHg BP Diastolic 62 mmHg BMI (Body Mass Index) 21.4 kg/m2 03/26/2019 3:05pm Height 70 inches 5'10" Weight 141.00 lb Heart Rate 84 /min BP Systolic Sitting 110 mmHg BP Diastolic Sitting 60 mmHg Respiratory Rate 16 /min Body Temperature 97.8 F BMI (Body Mass Index) 20.2 kg/m2 Results Description No Information Available Procedures Description No Information Available Medical Devices Description No Information Available Encounters Type Date Location Provider Dx Diagnosis Office Visit 04/30/2019 [facility] Brice Anglin, G43.719 Chronic migraine 9:45a [facility] w/o aura, intractable, w/o stat migr Office Visit 03/26/2019 [facility] M62.08 Separation of 3:00p Angie Campbell MD muscle (nontraumatic), other site Office Visit 02/21/2019 [facility] Brice Anglin, G43.719 Chronic migraine 10:30a w/o aura, intractable, w/o stat migr Z33.1 state, incidental Assessments Date Code Description Provider 04/30/2019 G43.719 Chronic migraine without aura, intractable, Brice Anglin MD without status migrainosus 03/26/2019 M62.08 Separation of muscle (nontraumatic), other Navi Campbell MD site 02/21/2019 G43.719 Chronic migraine without aura, intractable, Brice Anglin MD without status migrainosus 02/21/2019 Z33.1 state, incidental Brice Anglin MD Plan of Treatment Future Appointment(s):01/29/2020 9:45 am - Brice Anglin MD at [facility]04/30/2019 - Brice Anglin MDG43.719 Chronic migraine without aura, intractable, without status migrainosusComments: Migraines are still daily and bothersome but are better and headed in the right direction and if things worsen to the point of significant pain, suffering or makes the vomitting at lot worse then she will call and I will talk to her other doctor about the pros and cons of inderal. Will consider tryinga cgrp inhibitor/elvin after delivery and and will see in the fall in fu - sooner for problemsFollow up:Sept Functional Status Description No Information Available Mental Status Description No Information Available Referrals Description No Information Available
--- OUTSIDE RECORDS SUMMARY | 2019-05-06 03:40 | XMS REPORT | Continuity of Care Document ---
:1985 External Reference #:[id number] Author Name Navi Campbell MD (transmitted by agent of provider Rose Marie Gil) Address [address] [place] [address] [place] [address] Care Team Providers Name Role Phone Radha Agustin MD - Pain Medicine Care Team Information El Teacher [phone] Marcelle Sol MD - Family Care Team Information El Teacher [phone] [facility] Nick Ocampo MD - Family Medicine Care Team Information El Teacher Problems Active Problems Provider Date Migraine with typical aura Brice Anglin MD Onset: 03/10/2016 Restless legs Brice Anglin MD Onset: 07/28/2016 Iliotibial band friction syndrome Milvia Grove MD Onset: 01/18/2017 Solitary sacroiliitis Milvia Grove MD Onset: 01/18/2017 Social History Type Date Description Comments Sex Unknown Tobacco Use Start: Unknown End: Former Cigarette Unknown Smoker Smoking Status Reviewed: 03/26/19 Former Cigarette Smoker ETOH Use Consumes 1 [...] Indications Ordering Provider Date Ondansetron dissolve one 30tabs Jeffry Roth, 02/17/2016 4mg Tablets tablet orally N.P. Dispers every 8 hours as needed for [...] Navi Campbell, 03/24/2019 - Unknown 27-0.8mg day MD Tablets Neurontin 1 by mouth every 30caps Navi Campbell, 03/24/2019 - Unknown 300mg night at bedtime Capsules Medications Administered in Office Medication SIG Qnty Indications Ordering Provider Date Triamcinolone (Kenalog) Milvia Grove MD 01/18/2017 Injection Immunizations Description No Information Available Vital Signs Date Vital Result Comment 03/26/2019 3:05pm Height 70 inches 5'10" Weight 141.00 lb Heart Rate 84 /min BP Systolic Sitting 110 mmHg BP Diastolic Sitting 60 mmHg Respiratory Rate 16 /min Body Temperature 97.8 F BMI (Body Mass Index) 20.2 kg/m2 02/21/2019 10:50am Height 70 inches 5'10" Weight 143.00 lb Heart Rate 72 /min BP Systolic Sitting 108 mmHg BP Diastolic Sitting 64 mmHg Respiratory Rate 16 /min BMI (Body Mass Index) 20.5 kg/m2 Results Description No Information Available Procedures Description No Information Available Medical Devices Description No Information Available Encounters Type Date Location Provider Dx Diagnosis Office Visit 02/21/2019 [facility] Brice Anglin, G43.719 Chronic 10:30a MD migraine w/o aura, intractable, w/o stat migr Z33.1 state, incidental Assessments Date Code Description Provider 02/21/2019 G43.719 Chronic migraine without aura, intractable, Brice Anglin MD without status migrainosus 02/21/2019 Z33.1 state, incidental Brice Anglin MD Plan of Treatment Future Appointment(s):04/30/2019 9:45 am - Brice Anglin MD at [facility] Functional Status Description No Information Available Mental Status Description No Information Available Referrals Description No Information Available
[2019-05-06] MEDS ORDERED: PROCHLORPERAZINE INJ 5 MG/ML 2 ML VIAL IV ONE (05:38)
[2019-05-06 06:05] LABS: ABS Eosinophils 0.1 10^3/ul (0-0.6); ABS Lymphocytes 0.7 10^3/ul (1.0-4.8); ABS Monocytes 0.3 10^3/ul (0-0.8); ABS Neutrophils 11.2 10^3/ul (1.5-7.7); Eosinophil % 0.5 %; Hematocrit 33 % (35-47); Hemoglobin 11.1 g/dL (12.0-16.0); Lymphocyte % 5.8 %; Mean Corpuscular HGB Conc 34 g/dL (31-36); Mean Corpuscular Hemoglobin 30 pg (27-31); Mean Corpuscular Volume 89 fL (80-97); Mean Platelet Volume 7.2 fL (7.4-10.4); Platelet Count 212 10^3/uL (150-450); Red Blood Count 3.66 10^6 /uL (3.70-4.87); Red Cell Distribution Width 13 % (10-15); White Blood Count 12.2 10^3/uL (3.5-10.8)
[2019-05-06 06:21] LABS: Albumin 3.5 g/dL (3.2-5.2); Albumin/Globulin Ratio 1.4 (1-3); BUN/Creatinine Ratio 23.9 (8-20); Calcium 8.1 mg/dL (8.6-10.3); EGFR African American 191.7 (>60); EGFR Non-African American 158.4 (>60); Globulin 2.5 g/dL (2-4); Potassium 3.8 mmol/L (3.5-5.0); Total Bilirubin 0.3 mg/dL (0.2-1.0)
[2019-05-06 07:16] VITALS: BP 111/61
--- NOTE | 2019-05-06 07:21 | ED ---
Progress - Progress Note Progress Note: Patient is signed out to Dr. Camacho at 0700 05/06/19 shift change pending improvement of Sx, further workup as needed, and OB consult. Re-Evaluation - Re-Evaluation First Eval Re-Evaluation Time: 03:40 Comment: Nausea persisted, additional medications to be administered. Second Eval Re-Evaluation Time: 06:30 Comment: Patient had some relief in Sx in Reglan. However, Sx later returned. Compazine administered. OB consult to be obtained. Third Eval Re-Evaluation Time: 08:18 Comment: HR low 100's. temp 38.1, given tylenol. No RLQ abd tenderness, abd soft. Suspect viral source of symptoms. Patient very anxious to get home and states her restless legs are making her feel worse. States she would like to leave before tachycardia resolves. She will leave AMA. Patient is AAOx4 with clear sensorium, no signs of intoxication, no SI/HI, a normal gait and normal speech pattern and capacity to refuse care. I explained to the patient the risks of leaving AMA to include , disability, and loss of function. I had an extensive conversation with the patient regarding return precautions and encouraged them to return sooner for any worsening condition, new symptoms or ANY other concerns. Course/Dx - Course Course Of Treatment: Patient is a 33 y/o F who is 20 weeks presenting to [facility] with chief complaint of N/V. It is reported that N/V onset around 0030 05/06/19 when the patient went to lie down. She states that she took some Zofran when nausea first onset but subsequently vomited this medication up. Patient notes that she experiences sharp abdominal pain and a near-syncopal sensation with vomiting. ADKINS is endorsed as well, patient has Hx of migraines. On triage, pain is rated 4/10. Diarrhea is denied. Recent possible sick contact is noted. Physical exam is unremarkable. Abdomen is soft and non-tender. During ED course, patient received fluids and Zofran 8 mg IV. Nausea persisted, Reglan 10 mg IV. Bloodwork was obtained. Abnormal values include WBC 12.2, RBC 3.66, Hgb 11.1, Hct 33, MPV 7.2, absolute neuts 11.2, absolute lymphs 0.7, sodium 134, carbon dioxide 21, creatinine 0.46, BUN/creatinine ratio 23.9, glucose 114, calcium 8.1, alk phos 33, total protein 6. Sx are continued. Patient had some relief in Sx in Reglan. However, Sx later returned. Compazine 10 mg IV administered. OB consult to be obtained. Patient is signed out to Dr. Camacho at 0700 05/06/19 shift change pending improvement of Sx and further workup as needed. - Diagnoses Provider Diagnoses: Nausea and vomiting during Discharge ED - Sign-Out/Discharge Documenting (check all that apply): Patient Departure - discharge - Discharge Plan Condition: Stable Disposition: AGAINST MEDICAL ADVICE Prescriptions: Prochlorperazine TAB* [Compazine Tab*] 10 mg PO Q8H PRN 4 Days #12 tab PRN Reason: Vomiting Pyridoxine HCl (Vitamin B6) [Vitamin B-6] 25 mg PO TID PRN 4 Days #12 tablet PRN Reason: Vomiting Patient Education Materials: Nausea and Vomiting in (ED) Referrals: Nick Ocampo MD [Primary Care Provider] - 3 Days Additional Instructions: You were seen in the emergency department for nausea and vomiting. At home you can take vitamin B6 every 8 hours as needed for vomiting. If you have persistent vomiting, you can also take Compazine every 8 hours vomiting. Please follow up with your primary care doctor in next 2-3 days and return to emergency department for worsening vomiting, inability to keep down fluids, contractions, or concerning symptoms. It was a pleasure taking care of you today. - Billing Disposition and Condition Condition: STABLE Disposition: Against Medical Advice - Attestation Statements Document Initiated by Denise: Yes Documenting Scribe: Guadalupe Sandoval Provider For Whom Denise is Documenting (Include Credential): Dr. Teresita Camacho MD Scribe Attestation: I, Guadalupe Sandoval scribed for Dr. Teresita Camacho MD on 05/06/19 at 1237. Scribe Documentation Reviewed: Yes Provider Attestation: The documentation as recorded by the Guadalupe packer accurately reflects the service I personally performed and the decisions made by vt, Dr. Teresita Camacho MD Status of Scribe Document: Viewed
[2019-05-06 07:22] LABS: Urine Appearance Clear; Urine Bilirubin Negative (Negative); Urine Blood Negative (Negative); Urine Color Yellow; Urine Glucose Negative (Negative); Urine Ketones 1+ (Negative); Urine Nitrite Negative (Negative); Urine Protein Negative (Negative); Urine Specific Gravity 1.021 (1.010-1.030); Urine Urobilinogen Negative (Negative)
[2019-05-06] MEDS ORDERED: Acetaminophen TAB* 325 MG PO ONE (08:09)
== END 2019-05-06 08:27 | disposition left against medical advice (07) ==
LOC: ED 02:43
DX: O21.0 Mild hyperemesis gravidarum (principal); Z3A.20 20 weeks gestation of pregnancy; Z88.8 Allergy status to other drugs, medicaments and biological substances; D64.9 Anemia, unspecified; J45.909 Unspecified asthma, uncomplicated; F41.9 Anxiety disorder, unspecified; F32.9 Major depressive disorder, single episode, unspecified; Z87.891 Personal history of nicotine dependence
CPT/HCPCS: 36415; 80053; 81003; 83690; 85025; 96361; 96374; 96375; 99283; A9270-GY; J0780; J2405; J2765

== ENCOUNTER 2019-06-22 05:54 | Emergency (ER) | payer OTHER ==
--- NOTE | 2019-06-22 06:50 | ED ---
Influenza-Like Illness - HPI Summary HPI Summary: This patient is a 33-year-old female with a history of back pain and migraines currently 26 weeks presenting to the ED with influenza-like symptoms. Patient had a influenza contact with flu-type B 3 days ago. She has since developed N/V/body aches, ADKINS and fatigue. She had one episode of vomiting this morning. Denies nausea currently. Denies any subjective fevers, but has been hot and cold. Hx of n/v with this . Endorses some lower abd pain and states the fetus has been having more movement since this AM. She has taken tylenol every 6 hours for her sxs. Current medications include oxycodone, vitamin B6 and Compazine and Zofran as needed. - History of Current Complaint Chief Complaint: EDFluSymptoms Time Seen by Provider: 06/22/19 06:30 Hx Obtained From: Patient Onset/Duration: Gradual Onset Severity: Moderate Associated Signs & Symptoms: F/C, Myalgia, Cough, Nasal Congestion, Headache, Vomiting Related Hx: Possible Flu/Infectious Exposure - type flu B - Risk Factors Influenza Risk Factors: or up to 2 Week (Including loss of ) - Allergy/Home Medications Allergies/Adverse Reactions: Allergies Allergy/AdvReac Type Severity Reaction Status Date / Time nickel Allergy Severe Rash Verified 06/23/19 02:03 zonisamide Allergy See Comment Verified 06/23/19 02:03 Home Medications: Home Medications Magnesium Oxide [Magnesium] 200 mg PO BID 06/22/19 [History Confirmed 06/22/19] PMH/Surg Hx/FS Hx/Imm Hx Previously Healthy: Yes Endocrine/Hematology History: Reports: Hx Anemia - took Fe in past -not currently Denies: Hx Anticoagulant Therapy, Hx Blood Disorders, Hx Diabetes, Hx Thyroid Disease, Hx Unexplained Bleeding Cardiovascular History: Reports: Hx Angina Denies: Hx Aneurysm, Hx Congenital Heart Disease, Hx Coronary Artery Disease , Hx Hypercholesterolemia, Hx Hypertension, Hx Myocardial Infarction, Hx Pacemaker/ICD, Hx Valvular Heart Disease Respiratory History: Reports: Hx Asthma Denies: Hx Chronic Obstructive Pulmonary Disease (COPD), Hx Pneumonia, Hx Pulmonary Embolism, Hx Sleep Apnea GI History: Denies: Hx Gall Bladder Disease, Hx Gastroesophageal Reflux Disease, Hx Gastrointestinal Bleed, Hx Irritable Bowel, Hx Obstructive Bowel, Hx Ulcer History: Denies: Hx Dialysis, Hx Kidney Infection, Hx Kidney Stones, Hx Renal Disease Musculoskeletal History: Reports: Other Musculoskeletal History - chronic hip pain - takes flexeril Sensory History: Reports: Hx Contacts or Glasses Denies: Hx Hearing Aid Opthamlomology History: Reports: Hx Contacts or Glasses Neurological History: Reports: Hx Migraine, Other Neuro Impairments/Disorders - RLS - takes gabapentin Psychiatric History: Reports: Hx Anxiety, Hx Depression, Hx Panic Disorder - Surgical History Surgery Procedure, Year, and Place: None - Immunization History Hx Pertussis Vaccination: No Immunizations Up to Date: Yes Infectious Disease History: No Infectious Disease History: Denies: Hx Clostridium Difficile, Hx Hepatitis, Hx Human Immunodeficiency Virus (HIV), Hx of Known/Suspected MRSA, Hx Shingles, Hx Tuberculosis, Hx Known/ Suspected VRE, Hx Known/Suspected VRSA, History Other Infectious Disease, Traveled Outside the [place] in Last 30 Days - Family History Known Family History: Positive: Cardiac Disease Negative: Hypertension Family History: NON CONTRIBUTORY - Social History Occupation: Employed Full-time Lives: With Family Alcohol Use: None Hx Substance Use: Yes Substance Use Type: Reports: Marijuana Substance Use Comment - Amount & Last Used: OCCASIONALLY for insomnia Hx Tobacco Use: Yes - quit 4 years ago Smoking Status (MU): Former Smoker Type: Cigarettes Amount Used/How Often: september 15, 2014 Have You Smoked in the Last Year: Yes Review of Systems Positive: Chills, Fatigue, Skin Diaphoresis. Negative: Fever Positive: Sore Throat Negative: Palpitations, Chest Pain Positive: Cough. Negative: Shortness Of Breath Positive: Abdominal Pain, Vomiting. Negative: Diarrhea Genitourinary: Negative Positive: no symptoms reported, see HPI Positive: Myalgia Skin: Negative Positive: Headache, Weakness All Other Systems Reviewed And Are Negative: Yes Physical Exam Triage Information Reviewed: Yes Vital Signs On Initial Exam: Initial Vitals Temp Pulse Resp BP Pulse Ox 97.6 F 92 15 123/69 98 06/22/19 05:56 06/22/19 05:56 06/22/19 05:56 06/22/19 05:56 06/22/19 05:56 Vital Signs Reviewed: Yes Appearance: Positive: Well-Nourished Skin: Positive: Warm, Skin Color Reflects Adequate Perfusion Head/Face: Positive: Normal Head/Face Inspection Eyes: Positive: EOMI, JAIRON, Conjunctiva Clear Neck: Positive: Supple, Nontender, No Lymphadenopathy Respiratory/Lung Sounds: Positive: Clear to Auscultation, Breath Sounds Present Cardiovascular: Positive: RRR, Pulses are Symmetrical in both Upper and Lower Extremities Musculoskeletal: Positive: Normal, Strength/ROM Intact Neurological: Positive: Speech Normal Psychiatric: Positive: Normal, Affect/Mood Appropriate AVPU Assessment: Alert Procedures - Sedation Patient Received Moderate/Deep Sedation with Procedure: No Diagnostics - Vital Signs Vital Signs Temp Pulse Resp BP Pulse Ox 06/22/19 05:56 97.6 F 92 15 123/69 98 - Laboratory Lab Results: Lab Results 06/22/19 Range/Units 06:34 Influenza A (Rapid) Pending Influenza B (Rapid) Pending Lab Statement: Any lab studies that have been ordered have been reviewed, and results considered in the medical decision making process. Flu Symptom Course/Dx - Course Course Of Treatment: This patient is evaluated for influenza-like symptoms. On physical examination, patient appears fatigued, however nondiaphoretic. Vital signs are stable. Lungs CTA, RRR. No maxillary sinus tenderness. TMs without erythema, positive cone of light. No bilateral lymphadenopathy. No conjunctival injection. EOMI/PERRLA. No abdominal tenderness. Influenza swab obtained: Negative. Offered patient anti-medics, however patient declined. On reexamination, patient has an episode of emesis. She was given Zofran 4 mg ODT. Pts son has influenza A dx today. D/t this exposure and accourding to UTD , pt will be prophylactically treated. She is encouragd continuation of her colace and miralax. Discussed with patient she can increase her dose of colace to 360mg for the day. - Diagnoses Differential Diagnosis/HQI/PQRI: Positive: Influenza, Other - other viral illness Provider Diagnoses: Exposure to the flu, Vomiting, Viral syndrome Discharge ED - Sign-Out/Discharge Documenting (check all that apply): Patient Departure - Discharge Plan Condition: Stable Disposition: HOME Referrals: Nick Ocampo MD [Primary Care Provider] - Additional Instructions: Drink plenty of fluids Tylenol as needed for body aches Rest as much as possible Continue your at home nausea medication as needed If you develop worsening symptoms, please see your PCP, or return to the ED - Billing Disposition and Condition Condition: STABLE Disposition: Home
[2019-06-22 07:05] LABS: Influenza A Molecular Negative (Negative); Influenza B Molecular Negative (Negative)
[2019-06-22] MEDS ORDERED: Ondansetron ODT TAB* 4 MG SL ONE (07:18)
[2019-06-22 07:36] VITALS: BP 0/0
== END 2019-06-22 07:34 | disposition home or self-care (01) ==
LOC: ED 05:54
DX: O21.2 Late vomiting of pregnancy (principal); B34.9 Viral infection, unspecified; Z20.828 Contact with and (suspected) exposure to other viral communicable diseases; Z3A.26 26 weeks gestation of pregnancy; G89.29 Other chronic pain; M25.559 Pain in unspecified hip; G25.81 Restless legs syndrome; F41.0 Panic disorder [episodic paroxysmal anxiety]; F32.9 Major depressive disorder, single episode, unspecified; Z88.8 Allergy status to other drugs, medicaments and biological substances; Z91.09 Other allergy status, other than to drugs and biological substances; Z87.891 Personal history of nicotine dependence
CPT/HCPCS: 99212; 99282; G0463

== ENCOUNTER 2019-06-23 01:59 | Emergency (ER) | payer OTHER ==
[2019-06-23] MEDS ORDERED: NS 0.9% 1000 ML** 1,000 ML IV.FLUID IV ONE (02:56)
[2019-06-23] MEDS ORDERED: Acetaminophen TAB* 325 MG PO ONE (02:56)
[2019-06-23 03:03] LABS: Influenza A Molecular POSITIVE (Negative)
--- NOTE | 2019-06-23 03:06 | ED ---
Complex/Multi-Sys Presentation - HPI Summary HPI Summary: Patient is a 33 y/o F who is 26 weeks [facility] complaints of sore throat, chills, fever, decreased PO intake, diffuse body aches, slight abdominal pain, and heart racing. The patient had onset of sore throat on 06/19, flu-like Sx onset 06/21. She was evaluated at [facility] with son 06/22. Patient tested negative for flu, but her son was positive. Patient was prescribed tamiflu prophylactically. When falling asleep this evening, patient states that she had onset of tachycardia. She was concerned about this Sx and returned to ED for evaluation. Patient has been taking Tylenol every six hours with last dose being 06/22. Home medications and allergies are reviewed. - History Of Current Complaint Chief Complaint: EDFluSymptoms Time Seen by Provider: 06/23/19 02:53 Hx Obtained From: Patient Onset/Duration: Lasting Days, Still Present Timing: Constant, Days Location: Pain At: - throat, abdomen, diffuse body aches Associated Signs And Symptoms: Positive: Abdominal Pain, Decreased Oral Intake, Fever, Other - positive - sore throat, chills, diffuse body aches, heart racing - Allergies/Home Medications Allergies/Adverse Reactions: Allergies Allergy/AdvReac Type Severity Reaction Status Date / Time nickel Allergy Severe Rash Verified 06/23/19 02:03 zonisamide Allergy See Comment Verified 06/23/19 02:03 Home Medications: Home Medications Ondansetron ODT TAB* [Zofran 4 MG Odt TAB*] 4 mg SL Q8H PRN 06/23/19 [History Confirmed 06/23/19] Oxycodone HCl/Acetaminophen [Percocet 7.5-325 mg Tablet] 1 tab PO Q6H PRN [History Confirmed 06/23/19] Sertraline* [Zoloft*] 25 mg PO DAILY 06/23/19 [History Confirmed 06/23/19] PMH/Surg Hx/FS Hx/Imm Hx Endocrine/Hematology History: Reports: Hx Anemia - took Fe in past -not currently Denies: Hx Anticoagulant Therapy, Hx Blood Disorders, Hx Diabetes, Hx Thyroid Disease, Hx Unexplained Bleeding Cardiovascular History: Reports: Hx Angina Denies: Hx Aneurysm, Hx Congenital Heart Disease, Hx Coronary Artery Disease , Hx Hypercholesterolemia, Hx Hypertension, Hx Myocardial Infarction, Hx Pacemaker/ICD, Hx Valvular Heart Disease Respiratory History: Reports: Hx Asthma Denies: Hx Chronic Obstructive Pulmonary Disease (COPD), Hx Pneumonia, Hx Pulmonary Embolism, Hx Sleep Apnea GI History: Denies: Hx Gall Bladder Disease, Hx Gastroesophageal Reflux Disease, Hx Gastrointestinal Bleed, Hx Irritable Bowel, Hx Obstructive Bowel, Hx Ulcer History: Denies: Hx Dialysis, Hx Kidney Infection, Hx Kidney Stones, Hx Renal Disease Musculoskeletal History: Reports: Other Musculoskeletal History - chronic hip pain - takes flexeril Sensory History: Reports: Hx Contacts or Glasses Denies: Hx Hearing Aid Opthamlomology History: Reports: Hx Contacts or Glasses Neurological History: Reports: Hx Migraine, Other Neuro Impairments/Disorders - RLS - takes gabapentin Psychiatric History: Reports: Hx Anxiety, Hx Depression, Hx Panic Disorder - Surgical History Surgery Procedure, Year, and Place: None - Immunization History Date of Influenza Vaccine: none Infectious Disease History: No Infectious Disease History: Denies: Hx Clostridium Difficile, Hx Hepatitis, Hx Human Immunodeficiency Virus (HIV), Hx of Known/Suspected MRSA, Hx Shingles, Hx Tuberculosis, Hx Known/ Suspected VRE, Hx Known/Suspected VRSA, History Other Infectious Disease, Traveled Outside the [place] in Last 30 Days - Family History Known Family History: Positive: Cardiac Disease Negative: Hypertension - Social History Alcohol Use: None Hx Substance Use: Yes Substance Use Type: Reports: Marijuana Substance Use Comment - Amount & Last Used: OCCASIONALLY for insomnia Hx Tobacco Use: Yes - quit 4 years ago Smoking Status (MU): Former Smoker Type: Cigarettes Amount Used/How Often: september 15, 2014 Have You Smoked in the Last Year: Yes Review of Systems Constitutional: Other - positive - diffuse body aches Positive: Fever, Chills Positive: Sore Throat Cardiovascular: Other - positive - heart racing Gastrointestinal: Other - positive - decreased PO intake Positive: Abdominal Pain All Other Systems Reviewed And Are Negative: Yes Physical Exam - Summary Physical Exam Summary: Appearance: Ill-appearing, Well-nourished, lying in bed comfortably Skin: Febrile, dry, no obvious rash Eyes: sclera anicteric, no conjunctival pallor ENT: mucous membranes moist, pharynx appears normal Neck: Supple, nontender Respiratory: Clear to auscultation, no signs of respiratory distress Cardiovascular: Tachycardic, Normal S1, S2. No murmurs. Normal distal pulses in tibial and radial bilaterally. Abdomen: Soft, nontender, normal active bowel sounds present Musculoskeletal: Normal, Strength/ROM Intact Neurological: A&Ox3, awake and alert, mentation is normal, speech is fluent and appropriate Psychiatric: affect is normal, does not appear anxious or depressed Triage Information Reviewed: Yes Vital Signs On Initial Exam: Initial Vitals Temp Pulse Resp BP Pulse Ox 100.3 F 137 16 97/67 99 06/23/19 02:01 06/23/19 02:01 06/23/19 02:01 06/23/19 02:01 06/23/19 02:01 Vital Signs Reviewed: Yes Procedures - Sedation Patient Received Moderate/Deep Sedation with Procedure: No Diagnostics - Vital Signs Vital Signs Temp Pulse Resp BP Pulse Ox 06/23/19 02:27 100.2 F 131 18 98 06/23/19 02:01 100.3 F 137 16 97/67 99 - Laboratory Lab Results: Lab Results 06/23/19 Range/Units 02:45 Influenza A (Rapid) Pending Influenza B (Rapid) Pending Result Diagrams: 06/23/19 03:10 06/23/19 03:10 Lab Statement: Any lab studies that have been ordered have been reviewed, and results considered in the medical decision making process. Complex Multi-Symp Course/Dx Course Of Treatment: Patient is a 33 y/o F who is 26 weeks [facility] with complaints of sore throat, chills, fever, decreased PO intake, diffuse body aches, slight abdominal pain, and heart racing. The patient had onset of sore throat on 06/19, flu-like Sx onset 06/21. She was evaluated at [facility] with son 06/22. Patient tested negative for flu, but her son was positive. Patient was prescribed tamiflu prophylactically. When falling asleep this evening, patient states that she had onset of tachycardia. She was concerned about this Sx and returned to ED for evaluation. Patient has been taking Tylenol every six hours with last dose being 06/22. On physical exam, patient is noted to be ill-appearing, febrile, and tachycardic. Bloodwork was obtained, abnormal values include WBC 15.7, RBC 3.33, Hgb 10.1, Hct 30, absolute neuts 14.4, absolute lymphs 0.7, sodium 134, potassium 3.1, carbon dioxide 17, creatinine 0.44, BUN/creatinine ratio 20.5, calcium 8.1, AST 12, total protein 6.2. Influenza A was positive. During ED course, patient received fluids and Tylenol 975 mg PO. Patient was recommended to take twice the daily dosing of Tamiflu that had been prescribed during previous visit. She will follow up with her OB as needed. - Diagnoses Provider Diagnoses: Influenza A Discharge ED - Sign-Out/Discharge Documenting (check all that apply): Patient Departure - discharge - Discharge Plan Condition: Stable Disposition: HOME Patient Education Materials: Influenza (ED) Referrals: Nick Ocampo MD [Primary Care Provider] - Additional Instructions: The second influenza test today was positive, as expected, so go ahead and take the twice daily dosing that your plating stripper recommended. Make sure to stay hydrated and eat plenty as your body needs extra energy to fight off the infection. If you start to feel worse, contact your OB or return to the ED. - Billing Disposition and Condition Condition: STABLE Disposition: Home - Attestation Statements Document Initiated by Denise: Yes Documenting Scribe: SANDRA PIKE Provider For Whom Denise is Documenting (Include Credential): LAVINIA AGUIRRE MD Scribe Attestation: SANDRA Villasenor, rubened for LAVINIA AGUIRRE MD on 06/26/19 at 2133. Scribe Documentation Reviewed: Yes Provider Attestation: The documentation as recorded by the SANDRA packer accurately reflects the service I personally performed and the decisions made by LAVINIA raines MD Status of Scribe Document: Viewed
[2019-06-23 03:30] LABS: ABS Lymphocytes 0.7 10^3/ul (1.0-4.8); ABS Monocytes 0.5 10^3/ul (0-0.8); ABS Neutrophils 14.4 10^3/ul (1.5-7.7); Eosinophil % 0.1 %; Hematocrit 30 % (35-47); Hemoglobin 10.1 g/dL (12.0-16.0); Lymphocyte % 4.7 %; Mean Corpuscular HGB Conc 34 g/dL (31-36); Mean Corpuscular Hemoglobin 30 pg (27-31); Mean Corpuscular Volume 89 fL (80-97); Mean Platelet Volume 7.7 fL (7.4-10.4); Platelet Count 226 10^3/uL (150-450); Red Blood Count 3.33 10^6 /uL (3.70-4.87); Red Cell Distribution Width 13 % (10-15); White Blood Count 15.7 10^3/uL (3.5-10.8)
[2019-06-23 03:45] LABS: Albumin 3.6 g/dL (3.2-5.2); Albumin/Globulin Ratio 1.4 (1-3); BUN/Creatinine Ratio 20.5 (8-20); Calcium 8.1 mg/dL (8.6-10.3); EGFR African American 201.8 (>60); EGFR Non-African American 166.8 (>60); Globulin 2.6 g/dL (2-4); Potassium 3.1 mmol/L (3.5-5.0); Total Bilirubin 0.4 mg/dL (0.2-1.0); Total Protein 6.2 g/dL (6.4-8.9)
[2019-06-23 03:49] LABS: Activated Partial Thrombo Time 28.9 seconds (26.0-38.0); INR 1.04 (0.82-1.09)
[2019-06-23 04:40] VITALS: BP 107/58
== END 2019-06-23 04:40 | disposition home or self-care (01) ==
LOC: ED 01:59
DX: J09.X2 Influenza due to identified novel influenza A virus with other respiratory manifestations (principal); D64.9 Anemia, unspecified; J45.909 Unspecified asthma, uncomplicated; F41.9 Anxiety disorder, unspecified; F32.9 Major depressive disorder, single episode, unspecified; Z87.891 Personal history of nicotine dependence; Z79.899 Other long term (current) drug therapy; Z88.8 Allergy status to other drugs, medicaments and biological substances
CPT/HCPCS: 36415; 80053; 83605; 84484; 85025; 85610; 85730; 87040; 96360; 99283; A9270-GY

== ENCOUNTER 2019-07-09 05:07 | Emergency (ER) | payer OTHER ==
--- NOTE | 2019-07-09 06:28 | ED ---
- HPI Summary HPI Summary: Patient is a 33-year-old female who presents emergency department for 4 days of constipation. Patient notes she's having a lot of significant lower abdominal pain and pressure. Pt. currently 29 weeks . Denies vaginal dc or bleeding. Pt. is on chronic narcotics for hip dysplasia. She chronically take miralax and colace. Sxs are moderate in severity. No current modifying factors. - History of Current Complaint Chief Complaint: EDConstipation Stated Complaint: CONSTIPATION PER PT Time Seen by Provider: 07/09/19 06:19 Pain Intensity: 8 - Assessment Hx Now: No SAB: 0 IEA: 0 Hx Hysterectomy: No - Additional Pertinent History Primary Care Physician: SANJIV Maternal Blood Type and Rh: A Positive - Allergies/Home Medications Allergies/Adverse Reactions: Allergies Allergy/AdvReac Type Severity Reaction Status Date / Time nickel Allergy Severe Rash Verified 07/09/19 05:13 zonisamide Allergy See Comment Verified 07/09/19 05:13 Home Medications: Home Medications Morphine Sulfate [Morphabond ER] 15 mg PO BID 06/10/18 [History Confirmed ] Pnv No.95/Ferrous Fum/Folic AC [ Caplet] 1 tab PO DAILY 02/16/19 [ History Confirmed 07/09/19] Magnesium Oxide [Magnesium] 200 mg PO BID 06/22/19 [History Confirmed 07/09/19] Ondansetron ODT TAB* [Zofran 4 MG Odt TAB*] 4 mg SL Q8H PRN 06/23/19 [History Confirmed 07/09/19] Oxycodone HCl/Acetaminophen [Percocet 7.5-325 mg Tablet] 1 tab PO Q6H PRN [History Confirmed 07/09/19] Sertraline* [Zoloft*] 25 mg PO DAILY 06/23/19 [History Confirmed 07/09/19] Docusate Sodium [Colace] 100 mg PO TID 07/09/19 [History Confirmed 07/09/19] Polyethylene Glycol 3350 [Miralax] 1 pkt PO DAILY 07/09/19 [History Confirmed ] Pyridoxine HCl (Vitamin B6) [Vitamin B-6] 25 mg PO DAILY 07/09/19 [History Confirmed 07/09/19] PMH/Surg Hx/FS Hx/Imm Hx Previously Healthy: Yes Endocrine/Hematology History: Reports: Hx Anemia - took Fe in past -not currently Denies: Hx Anticoagulant Therapy, Hx Blood Disorders, Hx Diabetes, Hx Thyroid Disease, Hx Unexplained Bleeding Cardiovascular History: Reports: Hx Angina Denies: Hx Aneurysm, Hx Congenital Heart Disease, Hx Coronary Artery Disease , Hx Hypercholesterolemia, Hx Hypertension, Hx Myocardial Infarction, Hx Pacemaker/ICD, Hx Valvular Heart Disease Respiratory History: Reports: Hx Asthma Denies: Hx Chronic Obstructive Pulmonary Disease (COPD), Hx Pneumonia, Hx Pulmonary Embolism, Hx Sleep Apnea GI History: Denies: Hx Gall Bladder Disease, Hx Gastroesophageal Reflux Disease, Hx Gastrointestinal Bleed, Hx Irritable Bowel, Hx Obstructive Bowel, Hx Ulcer History: Denies: Hx Dialysis, Hx Kidney Infection, Hx Kidney Stones, Hx Renal Disease Musculoskeletal History: Reports: Other Musculoskeletal History - chronic hip pain - takes flexeril Sensory History: Reports: Hx Contacts or Glasses Denies: Hx Hearing Aid Opthamlomology History: Reports: Hx Contacts or Glasses Neurological History: Reports: Hx Migraine, Other Neuro Impairments/Disorders - RLS - takes gabapentin Psychiatric History: Reports: Hx Anxiety, Hx Depression, Hx Panic Disorder - Surgical History Surgery Procedure, Year, and Place: None - Immunization History Date of Influenza Vaccine: none Infectious Disease History: No Infectious Disease History: Denies: Hx Clostridium Difficile, Hx Hepatitis, Hx Human Immunodeficiency Virus (HIV), Hx of Known/Suspected MRSA, Hx Shingles, Hx Tuberculosis, Hx Known/ Suspected VRE, Hx Known/Suspected VRSA, History Other Infectious Disease, Traveled Outside the [place] in Last 30 Days - Family History Known Family History: Positive: Cardiac Disease, Non-Contributory Negative: Hypertension Family History: NON CONTRIBUTORY - Social History Occupation: Unemployed Lives: With Family Alcohol Use: None Hx Substance Use: Yes Substance Use Type: Reports: Marijuana Substance Use Comment - Amount & Last Used: OCCASIONALLY for insomnia, medical marijuana Hx Tobacco Use: Yes - quit 4 years ago Smoking Status (MU): Former Smoker Type: Cigarettes Amount Used/How Often: september 15, 2014 Have You Smoked in the Last Year: Yes Review of Systems Constitutional: Negative Cardiovascular: Negative Respiratory: Negative Positive: Abdominal Pain. Negative: Vomiting Genitourinary: Negative Neurological/Mental Status: Negative All Other Systems Reviewed And Are Negative: Yes Physical Exam - Physical Exam Triage Information Reviewed: Yes Vital Signs Reviewed: Yes Appearance: Positive: Pain Distress - Pt. lying on bed, appears uncomfortable but nontoxic. SO present. Skin: Positive: Warm, Dry Head/Face: Positive: Normal Head/Face Inspection Eyes: Positive: Normal, EOMI Neck: Positive: Supple Respiratory/Lung Sounds: Positive: Clear to Auscultation, Breath Sounds Present Cardiovascular: Positive: Normal, RRR Abdomen Description: Positive: Other: - . ABd. is soft with significant pain to RLQ and LLQ without rebound or guarding. Neurological: Positive: Normal, CN Intact II-III Psychiatric: Positive: Affect/Mood Appropriate Procedures - Sedation Patient Received Moderate/Deep Sedation with Procedure: No Diagnostics - Vital Signs Vital Signs Temp Pulse Resp BP Pulse Ox 07/09/19 05:55 98.5 F 87 15 103/73 98 07/09/19 05:09 98.5 F 106 18 116/74 98 - Laboratory Result Diagrams: 07/09/19 06:41 07/09/19 06:41 Lab Statement: Any lab studies that have been ordered have been reviewed, and results considered in the medical decision making process. Course/Dx - Course Course Of Treatment: Patient with complaints of significant lower abdominal pain she contributes to constipation. No vaginal bleeding or discharge. OB performed nonstress test which was unremarkable. Labs show ongoing anemia and mildly low sodium and calcium. WBC 13,000. Patient initially ordered oral medications but states she does not feel that will help constipation and feels he needs to be relieved from down below stating her stool was very hard and will not be able to pass. Nurse performed soap suds enema with good relief of stool. Patient feeling much better and requesting discharge to home. To continue bowel regimen. To follow-up with OB in 1-2 days and return to the ER symptoms change or worsen. - Differential Diagnosis/HQI/PQRI: Appendicitis, Ovarian Torsion, Pre-term Labor - Diagnoses Provider Diagnoses: Constipation, Abdominal pain in , Anemia Discharge ED - Sign-Out/Discharge Documenting (check all that apply): Patient Departure - Discharge Plan Condition: Good Disposition: HOME Patient Education Materials: Constipation (ED), Abdominal Pain in (ED ) Referrals: Nick Ocampo MD [Primary Care Provider] - Elsy Jaime MD [Medical Doctor] - Additional Instructions: Call your OB today for an appointment within 2-3 days Increase fluids and fiber in diet Prune or apple juice Continue bowel regimen Return to ER if symptoms change or worsen - Billing Disposition and Condition Condition: GOOD Disposition: Home
[2019-07-09 06:57] LABS: ABS Basophils 0.1 10^3/ul (0-0.2); ABS Eosinophils 0.2 10^3/ul (0-0.6); ABS Lymphocytes 2.1 10^3/ul (1.0-4.8); ABS Monocytes 0.8 10^3/ul (0-0.8); Eosinophil % 1.2 %; Hematocrit 27 % (35-47); Hemoglobin 9.6 g/dL (12.0-16.0); Lymphocyte % 15.6 %; Mean Corpuscular HGB Conc 35 g/dL (31-36); Mean Corpuscular Hemoglobin 32 pg (27-31); Mean Corpuscular Volume 89 fL (80-97); Mean Platelet Volume 7.7 fL (7.4-10.4); Platelet Count 274 10^3/uL (150-450); Red Blood Count 3.06 10^6 /uL (3.70-4.87); Red Cell Distribution Width 13 % (10-15); White Blood Count 13.1 10^3/uL (3.5-10.8)
[2019-07-09 07:13] LABS: Albumin 3.2 g/dL (3.2-5.2); Albumin/Globulin Ratio 1.2 (1-3); Calcium 8.2 mg/dL (8.6-10.3); EGFR African American 196.6 (>60); EGFR Non-African American 162.5 (>60); Globulin 2.7 g/dL (2-4); Total Bilirubin 0.2 mg/dL (0.2-1.0); Total Protein 5.9 g/dL (6.4-8.9)
[2019-07-09] MEDS ORDERED: Magnesium CITRATE* 300 ML BTL PO ONE (08:20)
[2019-07-09] MEDS ORDERED: Polyethylene Glycol 3350* 17 GM PACKET PO ONE (08:20)
[2019-07-09] MEDS ORDERED: Glycerin ADULT SUPP PR ONE (09:09)
[2019-07-09 10:15] VITALS: BP 116/69
== END 2019-07-09 10:15 | disposition home or self-care (01) ==
LOC: ED 05:07
DX: O26.893 Other specified pregnancy related conditions, third trimester (principal); K59.00 Constipation, unspecified; O99.013 Anemia complicating pregnancy, third trimester; D64.9 Anemia, unspecified; O99.343 Other mental disorders complicating pregnancy, third trimester; F41.9 Anxiety disorder, unspecified; F32.9 Major depressive disorder, single episode, unspecified; Z3A.29 29 weeks gestation of pregnancy; Z87.891 Personal history of nicotine dependence; Z79.899 Other long term (current) drug therapy; Z88.8 Allergy status to other drugs, medicaments and biological substances
CPT/HCPCS: 36415; 80053; 85025; 99282; A9270-GY

== ENCOUNTER 2022-12-28 07:52 | Inpatient (IN) ==
[2022-12-28] MEDS ORDERED: Buffered Lidocaine 1% SYRIN 1 ml INTRADERM ONE (08:45)
[2022-12-28] MEDS ORDERED: Penicillin G Potassium IV 5,000,000 UNITS in NS 0.9% 100 ml BAG 100 ML IVPB ONE (08:45)
[2022-12-28] MEDS ORDERED: Lactated Ringers 1000 ml BAG 1,000 ML IV ONE ×2 (08:45→10:13)
[2022-12-28 08:57] LABS: ABS Basophils 0.1 10^3/uL (0.0-0.1); ABS Eosinophils 0.1 10^3/uL (0.0-0.5); ABS Lymphocytes 2.6 10^3/uL (1.0-4.8); ABS Monocytes 0.6 10^3/uL (0.0-0.9); ABS Neutrophils 7.7 10^3/uL (1.5-7.6); Eosinophil % 0.7 %; Hematocrit 36.1 % (35-45); Hemoglobin 12.7 g/dL (11.5-14.3); Lymphocyte % 23.2 %; Mean Corpuscular Hemoglobin 31.7 pg (27-33); Mean Corpuscular Hgb Conc 35.3 g/dL (31-36); Mean Corpuscular Volume 89.9 fL (80-97); Mean Platelet Volume 8.5 fL (7.5-11.2); Platelet Count 239 10^3/uL (150-450); Red Blood Count 4.02 10^6/uL (3.63-4.92); Red Cell Distribution Width 13.4 % (12-17)
[2022-12-28] MEDS ORDERED: Lactated Ringers 1000 ml BAG 1,000 ML IV SCH ×2 (09:00→11:00)
[2022-12-28] MEDS ORDERED: OBEPIDURAL (200 ML) 200 ML EPIDURAL ONE (09:25)
[2022-12-28] MEDS ORDERED: Lidocaine 1% w EPI 1:200,000 SDV 30 ML VIAL ONE (09:26)
[2022-12-28] MEDS ORDERED: Sodium Citrate/Citric Acid LIQ 15 ML UDC PO PRN (10:13)
[2022-12-28] MEDS ORDERED: Phenylephrine 40 mcg/mL 10mL (400mcg) SYRINGE IV PUSH PRN ×2 (10:13)
[2022-12-28] MEDS ORDERED: OBEPIDURAL (200 ML) 200 ML EPIDURAL SCH (11:00)
[2022-12-28 11:13] LABS: Urine Appearance Clear; Urine Bilirubin Negative (Negative); Urine Blood Negative (Negative); Urine Color Straw; Urine Glucose Negative (Negative); Urine Ketones Negative (Negative); Urine Nitrite Negative (Negative); Urine Protein Negative (Negative); Urine Specific Gravity 1.008 (1.002-1.030); Urine Urobilinogen Negative (Negative)
[2022-12-28 11:56] LABS: Urine Benzodiazepine Screen None Detected (None Detect); Urine Cannabinoids Screen Presumptive Positive (None Detect); Urine Opiates Screen Presumptive Positive (None Detect)
[2022-12-28] MEDS ORDERED: Ropivacaine (OR use only) 2 MG/ML 10 ML ONE (12:11)
[2022-12-28] MEDS ORDERED: Oxytocin in LR 0 MILLI.UNIT/0 ML BAG IV ONE (13:09)
[2022-12-28] MEDS ORDERED: Glycerin ADULT 2.4 gm SUPP PR PRN (13:31)
[2022-12-28] MEDS ORDERED: Witch Hazel PAD JAR TOPICAL PRN (13:31)
[2022-12-28] MEDS ORDERED: Dibucaine 1% OINT 28.35 GM TUBE PR PRN (13:31)
[2022-12-28] MEDS ORDERED: HYDROcodone/ACETAMIN 5/325 mg TAB PO PRN (17:01)
[2022-12-28] MEDS: Morphine ER 15 mg TAB ** extended release PO SCH (19:35)
[2022-12-29 06:24] LABS: ABS Basophils 0.1 10^3/uL (0.0-0.1); ABS Eosinophils 0.1 10^3/uL (0.0-0.5); ABS Lymphocytes 3.3 10^3/uL (1.0-4.8); ABS Monocytes 0.8 10^3/uL (0.0-0.9); ABS Neutrophils 9.3 10^3/uL (1.5-7.6); ABS Nucleated RBC 0.01 10^3/ul; Hematocrit 32.7 % (35-45); Hemoglobin 11.2 g/dL (11.5-14.3); Lymphocyte % 24.1 %; Mean Corpuscular Hemoglobin 31.2 pg (27-33); Mean Corpuscular Hgb Conc 34.4 g/dL (31-36); Mean Corpuscular Volume 90.6 fL (80-97); Mean Platelet Volume 8.3 fL (7.5-11.2); Platelet Count 229 10^3/uL (150-450); Red Blood Count 3.61 10^6/uL (3.63-4.92); Red Cell Distribution Width 13.8 % (12-17); White Blood Count 13.6 10^3/uL (3.8-11.8)
[2022-12-29] MEDS: Morphine ER 15 mg TAB ** extended release PO SCH ×2 (08:56→21:28)
[2022-12-30 08:43] VITALS: BP 116/68
[2022-12-30] MEDS: Morphine ER 15 mg TAB ** extended release PO SCH (09:20)
== END 2022-12-30 16:45 | disposition home or self-care (01) | DRG 560 ==
LOC: MCHOBOUT 07:52 → MCHOB 08:52
PROVIDERS: ADMIT Midwife; ATTEND Midwife